=== PATIENT | male | born 1975 | race Caucasian/White ===

== ENCOUNTER 2017-11-09 16:01 | Emergency (ER) | payer SELFPAY ==
[2017-11-09 16:13] VITALS: BP 172/97
--- NOTE | 2017-11-09 16:34 | ER Document Report ---
ED Medical Screen (RME) - General Chief Complaint: Ankle Swelling Stated Complaint: SWOLLEN FEET/ANKLES Time Seen by Provider: 11/09/17 16:33 Notes: Several days of shortness of breath and bilateral leg swelling. TRAVEL OUTSIDE OF THE [place] IN LAST 30 DAYS: No - Related Data Allergies/Adverse Reactions: disulfiram [From Antabuse] Allergy (Verified 11/09/17 16:26) imipramine [Imipramine] Allergy (Verified 11/09/17 16:26) tramadol Allergy (Verified 11/09/17 16:26) Past Medical History - Social History Chew tobacco use (# tins/day): No Frequency of alcohol use: Occasional Drug Abuse: None - Past Medical History Cardiac Medical History: Reports: Hx Hypertension Denies: Hx Coronary Artery Disease, Hx Heart Attack Pulmonary Medical History: Reports: Hx Asthma Denies: Hx Bronchitis, Hx COPD, Hx Pneumonia Neurological Medical History: Reports: Hx Cerebrovascular Accident. Denies: Hx Seizures Renal/ Medical History: Denies: Hx Peritoneal Dialysis Musculoskeltal Medical History: Denies Hx Arthritis Psychiatric Medical History: Reports: Hx Depression Past Surgical History: Reports: Hx Abdominal Surgery - hernia x 3, Hx Orthopedic Surgery - left knee - Immunizations Hx Diphtheria, Pertussis, Tetanus Vaccination: No Physical Exam - Vital signs Vitals: Temp Pulse Resp BP Pulse Ox 98.4 F 113 H 18 172/97 H 90 L 11/09/17 16:12 11/09/17 16:12 11/09/17 16:12 11/09/17 16:12 11/09/17 16:12 Course - Vital Signs Vital signs: Temp Pulse Resp BP Pulse Ox 98.4 F 113 H 18 172/97 H 90 L 11/09/17 16:12 11/09/17 16:12 11/09/17 16:12 11/09/17 16:12 11/09/17 16:12
--- NOTE | 2017-11-09 16:59 | RADIOLOGY REPORT (SQ) ---
EXAM DESCRIPTION: CHEST PA/LAT COMPLETED DATE/TIME: 11/09/2017 4:49 pm REASON FOR STUDY: sob COMPARISON: 04/01/2016 EXAM PARAMETERS: NUMBER OF VIEWS: two views TECHNIQUE: Digital Frontal and Lateral radiographic views of the chest acquired. RADIATION DOSE: NA LIMITATIONS: none FINDINGS: LUNGS AND PLEURA: No opacities, masses or pneumothorax. No pleural effusion. MEDIASTINUM AND HILAR STRUCTURES: No masses or contour abnormalities. HEART AND VASCULAR STRUCTURES: Heart normal size. No evidence for failure. BONES: No acute findings. HARDWARE: None in the chest. OTHER: No other significant finding. IMPRESSION: NO SIGNIFICANT RADIOGRAPHIC FINDING IN THE CHEST. TECHNICAL DOCUMENTATION: JOB ID: [id number] [employer].- All Rights Reserved
[2017-11-09 18:00] LABS: ABSOLUTE BASOPHILS # (AUTO) 0.1 10^3/uL (0.0-0.2); ABSOLUTE EOSINOPHILS # (AUTO) 0.1 10^3/uL (0.0-0.6); ABSOLUTE LYMPHOCYTES (AUTO) 2.6 10^3/uL (0.5-4.7); ABSOLUTE MONOCYTES (AUTO) 1.1 10^3/uL (0.1-1.4); ABSOLUTE NEUT (AUTO) 6.9 10^3/uL (1.7-8.2); EOSINOPHILS % (AUTO) 1.1 % (0-6); LYMPHOCYTES % (AUTO) 24.3 % (13-45); MEAN CORPUSCULAR HEMOGLOBIN 32.4 pg (27.0-33.4); MEAN CORPUSCULAR HGB CONC 32.9 g/dL (32.0-36.0); MEAN CORPUSCULAR VOLUME 98 fl (80-97); MONOCYTES % (AUTO) 10.1 % (3-13); PLATELET COUNT 194 10^3/uL (150-450); RED BLOOD COUNT 5.87 10^6/uL (4.35-5.55); RED CELL DISTRIBUTION WIDTH 17.1 % (11.5-14.0); SEGMENTED NEUTROPHILS % (AUTO) 63.5 % (42-78); TOTAL CELLS COUNTED % (AUTO) 100 %; WHITE BLOOD COUNT 10.9 10^3/uL (4.0-10.5)
[2017-11-09 18:02] LABS: HEMATOCRIT 57.7 % (37.9-51.0)
[2017-11-09 18:28] LABS: ALANINE AMINOTRANSFERASE 39 U/L (21-72); ALBUMIN 3.6 g/dL (3.5-5.0); ALKALINE PHOSPHATASE 70 U/L (38-126); ANION GAP 5 (5-19); ASPARTATE AMINO TRANSFERASE 48 U/L (17-59); BILIRUBIN,DIRECT 0.2 mg/dL (0.0-0.4); BILIRUBIN,TOTAL 0.7 mg/dL (0.2-1.3); BLOOD UREA NITROGEN 19 mg/dL (7-20); CALCIUM 9.1 mg/dL (8.4-10.2); CARBON DIOXIDE 39 mmol/L (22-30); CHLORIDE 96 mmol/L (98-107); GLUCOSE 80 mg/dL (75-110); POTASSIUM 4.4 mmol/L (3.6-5.0); SODIUM 139.5 mmol/L (137-145); TOTAL PROTEIN 5.4 g/dL (6.3-8.2)
[2017-11-09] MEDS ORDERED: METHYLPREDNISOLONE INJ 125 MG/2 ML SDV IV ONE (18:47)
[2017-11-09] MEDS ORDERED: IPRATROPIUM/ALBUTEROL 0.5-2.5 MG/3 ML AMPUL NEB ONE (18:47)
--- NOTE | 2017-11-09 18:51 | ER Document Report ---
ED General - General Chief Complaint: Ankle Swelling Stated Complaint: SWOLLEN FEET/ANKLES Time Seen by Provider: 11/09/17 16:33 Notes: Patient is a 42-year-old male with a past medical history of chronic tobacco use , reported asthma, but no other known medical problems who presents with bilateral lower extremity swelling, chronic fatigue and shortness of breath. Patient states that the symptoms started 1 month ago but the swelling initially resolved but has again recurred which prompted him to come to the emergency department for further assessment. He notes exertion worsens his symptoms. Nothing improves his symptoms. He denies prior history of the same. No chest pain, pleuritic pain, hemoptysis, unilateral leg swelling, vomiting or diarrhea. He has not seen his primary doctor regarding these concerns. TRAVEL OUTSIDE OF THE [place] IN LAST 30 DAYS: No - Related Data Allergies/Adverse Reactions: disulfiram [From Antabuse] Allergy (Verified 11/09/17 16:26) imipramine [Imipramine] Allergy (Verified 11/09/17 16:26) tramadol Allergy (Verified 11/09/17 16:26) Past Medical History - General Information source: Patient - Social History Smoking Status: Current Every Day Smoker Chew tobacco use (# tins/day): No Frequency of alcohol use: Occasional Drug Abuse: None Lives with: Spouse/Significant other Family History: Reviewed & Not Pertinent Patient has suicidal ideation: No Patient has homicidal ideation: No - Past Medical History Cardiac Medical History: Reports: Hx Hypertension Denies: Hx Coronary Artery Disease, Hx Heart Attack Pulmonary Medical History: Reports: Hx Asthma Denies: Hx Bronchitis, Hx COPD, Hx Pneumonia Neurological Medical History: Reports: Hx Cerebrovascular Accident. Denies: Hx Seizures Renal/ Medical History: Denies: Hx Peritoneal Dialysis Musculoskeltal Medical History: Denies Hx Arthritis Psychiatric Medical History: Reports: Hx Depression Past Surgical History: Reports: Hx Abdominal Surgery - hernia x 3, Hx Orthopedic Surgery - left knee - Immunizations Hx Diphtheria, Pertussis, Tetanus Vaccination: No Review of Systems - Review of Systems Notes: Constitutional: Negative for fever. HENT: Negative for sore throat. Eyes: Negative for visual changes. Cardiovascular: Negative for chest pain. Respiratory: Positive for shortness of breath. Gastrointestinal: Negative for abdominal pain, vomiting or diarrhea. Genitourinary: Negative for dysuria. Musculoskeletal: Positive for bilateral lower extremity swelling Skin: Negative for rash. Neurological: Negative for headaches, weakness or numbness. 10 point ROS negative except as marked above and in HPI. Physical Exam - Vital signs Vitals: Temp Pulse Resp BP Pulse Ox 98.4 F 113 H 18 172/97 H 90 L 11/09/17 16:12 11/09/17 16:12 11/09/17 16:12 11/09/17 16:12 11/09/17 16:12 Notes: PHYSICAL EXAMINATION: GENERAL: Appears chronically ill, no acute distress HEAD: Atraumatic, normocephalic. EYES: Pupils equal round and reactive to light, extraocular movements intact, sclera anicteric, conjunctiva are normal. ENT: nares patent, oropharynx clear without exudates. Moist mucous membranes. NECK: Normal range of motion, supple without lymphadenopathy LUNGS: Coarse breath sounds in all lung lr, diminished throughout. Wheezing and expiratory phase in all lung lr HEART: Regular tachycardia without murmurs ABDOMEN: Soft, nontender, normoactive bowel sounds. No guarding, no rebound. No masses appreciated. EXTREMITIES: Normal range of motion, 1+ pitting edema that is equal and symmetric in the bilateral lower extremities NEUROLOGICAL: No focal neurological deficits. Moves all extremities spontaneously and on command. PSYCH: Moderately anxious SKIN: Warm, cyanotic Course - Re-evaluation Re-evalutation: 11/09/17 18:47 Patient presents with signs and symptoms worrisome for chronic hypoxia in the setting of COPD and long-term tobacco use. His laboratories demonstrate polycythemia and his pulse ox in triage was 90%. Patient states "no matter how many doctors I go to the can never get a number above 90%, I do not think those things work". Patient is complaining of bilateral lower extremity swelling and does have 1+ pitting edema that is equal and symmetric in the bilateral lower extremities. Chest x-ray is evidence of cardiomegaly or pulmonary edema. Hyperinflated consistent with COPD. Lung examination does show coarse wheezing in all lung lr. Primary concerns of this patient has had chronic hypoxia in the setting of tobacco induced obstructive lung disease and may have developed some degree of congestive failure in the setting of chronic hypoxia. Will obtain arterial blood gas to confirm my suspicion for hypoxia, place patient on telemetry, obtain BNP, provide breathing treatments and monitor for response, and reassess the patient. Clinical history is not suspicious for ACS , aortic dissection or acute pulmonary embolus. However given that he is hypoxic, tachypneic and tachycardic and does have some signs of diastolic failure will obtain a d-dimer to further assess. 11/09/17 19:25 Patient's labs and ABG confirmed my initial suspicion that he has chronic hypoxemia secondary to COPD. Patient was noted to be 74% when placed on panel monitor on room air. The ABG obtained off of oxygenation showed a PaO2 of 35. I explained this to the patient, informed him that this is why he is beginning to have swelling developing cardiac failure the setting of chronic hypoxemia. Explained to him that he would need to be hospitalized, kept on continuous supplemental oxygen, have a pulmonary consult, have further evaluation of why he is still hypoxic which I again suspect is secondary to underlying obstructive lung disease. The patient came very emotional, quite agitated and stated that he was going to leave. He stated he could not simply not go to work tomorrow, that he needed to make money, and that he could not stay in the hospital. I attempted in many different ways with his and child at the bedside to explain the severity of his illness, and that he would inevitably as a result of this underlying condition if he did not allow us to assist him. I explained to him the direct relation between his hypoxia and how he has been feeling, his development of lower extremity edema, and probable development of CHF secondary to chronic hypoxia. I explained to him that the treatment plan. The patient states the reason he cannot stay is that he has to go to work and make money. He is not intoxicated. He denies any acute suicidal ideation. This conversation was witnessed by his who completed with the patient to please stay and receive treatment. The patient however ignored her device as well as mine, left the facility went outside to smoke a cigarette. This patient will leave AGAINST MEDICAL ADVICE. I have emphasized with the patient at length that I expect that he will as a result of leaving the hospital today if he does not seek care either here order an alternative facility of his choosing. 11/09/17 20:28 I again made an extensive effort with the nurse Maria Elena at the bedside witnessing the entire conversation to try to convince the patient about the grave nature of his presentation. He has elected to leave the facility despite this conversation and has signed AMA forms. - Vital Signs Vital signs: Temp Pulse Resp BP Pulse Ox 98.4 F 113 H 18 172/97 H 90 L 11/09/17 16:12 11/09/17 16:12 11/09/17 16:12 11/09/17 16:12 11/09/17 16:12 - Laboratory Result Diagrams: 11/09/17 17:35 11/09/17 17:35 Laboratory results interpreted by me: 11/09/17 11/09/17 11/09/17 17:35 17:35 17:35 WBC 10.9 H RBC 5.87 H Hgb 19.0 H Hct 57.7 H MCV 98 H RDW 17.1 H D-Dimer Carbonic Acid ABG pH ABG pCO2 ABG pO2 ABG HCO3 ABG Total CO2 ABG O2 Saturation Chloride 96 L Carbon Dioxide 39 H NT-Pro-B Natriuret Pep 1040 H Total Protein 5.4 L 11/09/17 11/09/17 17:35 19:00 WBC RBC Hgb Hct MCV RDW D-Dimer 0.56 H Carbonic Acid 2.43 H ABG pH 7.31 L ABG pCO2 80.8 H* ABG pO2 35.6 L* ABG HCO3 39.7 H ABG Total CO2 42.2 H ABG O2 Saturation 60.2 L Chloride Carbon Dioxide NT-Pro-B Natriuret Pep Total Protein - Diagnostic Test Radiology reviewed: Image reviewed, Reports reviewed Radiology results interpreted by me: 11/09/17 18:50 Chest x-ray: Hyperinflated but no acute infiltrate or pneumothorax - EKG Interpretation by Me Additional EKG results interpreted by me: 11/09/17 18:50 Sinus tachycardia. Rate 102. No ST elevations or depressions. LVH. T-wave inversion in leads II and III. Critical Care Note - Critical Care Note Total time excluding time spent on procedures (mins): 45 Comments: Critical care time spent on multiple reassessments of the patient, reviewing imaging, labs, making multiple attempts to redirect the patient, trying to convince the patient to remain in the hospital and received treatment, spent greater than 20 minutes at the bedside reviewing his condition, the severity of his condition, the indications for his hospitalization. Discharge - Discharge Clinical Impression: Chronic respiratory failure with hypoxia and hypercapnia, Need for supplemental oxygenation, Polycythemia secondary to hypoxia Congestive heart failure Qualifiers: Congestive heart failure type: unspecified Congestive heart failure chronicity : unspecified Qualified Code(s): I50.9 - Heart failure, unspecified Condition: Critical Disposition: AGAINST MEDICAL ADVICE Additional Instructions: I fully expect that you will go home and as a result of leaving the hospital today. The exact timeframe in which this will happen is uncertain but if you do not receive treatment for your chronic low oxygen level you will continue to develop worsening heart failure and eventually as a result of this. Please return to the emergency department at any time if you would like to have treatment. We will always welcome you back and will be happy to take care of you any time. If you would like to go to another hospital for treatment this is also completely acceptable. However, you must receive treatment for your underlying condition.
[2017-11-09 18:56] LABS: TROPONIN I 0.038 ng/mL
[2017-11-09 19:14] LABS: ARTERIAL BLOOD BASE EXCESS 8.5 mmol/L; ARTERIAL BLOOD H2CO3 2.43 mmol/L (1.05-1.35); ARTERIAL BLOOD HCO3 39.7 mmol/L (20-26); ARTERIAL BLOOD O2 SATURATION 60.2 % (94-98); ARTERIAL BLOOD PH 7.31 (7.35-7.45); ARTERIAL BLOOD TOTAL CO2 42.2 mmol/L (23-27)
[2017-11-09 19:15] LABS: ARTERIAL BLOOD FIO2 ROOM AIR
[2017-11-09 19:17] LABS: ARTERIAL BLOOD PCO2 80.8 mmHg (35-45); ARTERIAL BLOOD PO2 35.6 mmHg (80-100)
--- NOTE | 2017-11-09 23:36 | EKG REPORT ---
SEVERITY:- ABNORMAL ECG - SINUS TACHYCARDIA RIGHT ATRIAL ABNORMALITY BORDERLINE RIGHT AXIS DEVIATION CONSIDER LEFT VENTRICULAR HYPERTROPHY LATERAL INFARCT, OLD ANTERIOR Q WAVES, POSSIBLY DUE TO LVH NONSPECIFIC T ABNORMALITIES, INFERIOR LEADS : Confirmed by: Nader Park 09-Nov-2017 23:35:09
== END 2017-11-09 20:24 | disposition left against medical advice (07) ==
LOC: ER 16:01
DX: J96.11 Chronic respiratory failure with hypoxia (principal); J96.12 Chronic respiratory failure with hypercapnia; D75.1 Secondary polycythemia; F17.200 Nicotine dependence, unspecified, uncomplicated; I50.9 Heart failure, unspecified; I10 Essential (primary) hypertension; Z99.81 Dependence on supplemental oxygen; Z86.73 Personal history of transient ischemic attack (TIA), and cerebral infarction without residual deficits
CPT/HCPCS: 36415; 71046; 80053; 82803; 83880; 84484; 85025; 85379; 93005; 93010; 99291

== ENCOUNTER 2017-11-09 22:16 | Inpatient (IN) | payer MEDICAID ==
[2017-11-09] MEDS ORDERED: DIAZEPAM 5 MG TABLET PO ONE (23:07)
[2017-11-09] MEDS ORDERED: NICOTINE 21 MG/24 HR PATCH.TD24 TD ONE (23:07)
[2017-11-09] MEDS ORDERED: IPRATROPIUM/ALBUTEROL 0.5-2.5 MG/3 ML AMPUL NEB ONE (23:48)
[2017-11-09] MEDS ORDERED: METHYLPREDNISOLONE INJ 125 MG/2 ML SDV IV ONE (23:49)
--- NOTE | 2017-11-09 23:52 | ER Document Report ---
ED General - General Chief Complaint: Shortness Of Breath Stated Complaint: CHEST PAIN Time Seen by Provider: 11/09/17 23:02 Notes: Patient is a 42-year-old male who I saw several hours ago who returns for repeat assessment. In summary, this is a patient with long-standing tobacco abuse who presents with concerns of bilateral lower extremity edema for the past 1 month that is worsened in the last several days. He also notes chronic fatigue and shortness of breath. He was found on his previous visit to be severely hypoxemic on arterial blood gas as well as saturating 71% on room air without any obvious respiratory distress. His labs also demonstrated findings consistent with polycythemia in the setting of chronic hypoxia. Patient returns stating that he has changed his mind given the severity of my discharge instructions as well as my request that he return. He nothing is new or different since he was discharged. Patient does admit to smoking cigarettes since being discharged. Does note ongoing moderate shortness of breath, worsened by exertion, not improved by nebulizer therapies. TRAVEL OUTSIDE OF THE [place] IN LAST 30 DAYS: No - Related Data Allergies/Adverse Reactions: disulfiram [From Antabuse] Allergy (Verified 11/09/17 16:26) imipramine [Imipramine] Allergy (Verified 11/09/17 16:26) tramadol Allergy (Verified 11/09/17 16:26) Past Medical History - General Information source: Patient - Social History Smoking Status: Current Every Day Smoker Frequency of alcohol use: Occasional Drug Abuse: None Lives with: Spouse/Significant other Family History: Reviewed & Not Pertinent - Past Medical History Cardiac Medical History: Reports: Hx Hypertension Denies: Hx Coronary Artery Disease, Hx Heart Attack Pulmonary Medical History: Reports: Hx Asthma Denies: Hx Bronchitis, Hx COPD, Hx Pneumonia Neurological Medical History: Reports: Hx Cerebrovascular Accident. Denies: Hx Seizures Renal/ Medical History: Denies: Hx Peritoneal Dialysis Musculoskeltal Medical History: Denies Hx Arthritis Psychiatric Medical History: Reports: Hx Depression Past Surgical History: Reports: Hx Abdominal Surgery - hernia x 3, Hx Orthopedic Surgery - left knee - Immunizations Hx Diphtheria, Pertussis, Tetanus Vaccination: No Review of Systems - Review of Systems Notes: Constitutional: Negative for fever. HENT: Negative for sore throat. Eyes: Negative for visual changes. Cardiovascular: Negative for chest pain. Respiratory: Positive for shortness of breath. Gastrointestinal: Negative for abdominal pain, vomiting or diarrhea. Genitourinary: Negative for dysuria. Musculoskeletal: Negative for back pain. Skin: Negative for rash. Neurological: Negative for headaches, weakness or numbness. 10 point ROS negative except as marked above and in HPI. Physical Exam - Vital signs Vitals: Resp BP Pulse Ox 28 H 132/87 H 71 L 11/09/17 23:05 11/09/17 23:05 11/09/17 23:05 Interpretation: Tachycardic, Hypoxic, Tachypneic Notes: PHYSICAL EXAMINATION: GENERAL: Appears older than stated age, in no acute distress HEAD: Atraumatic, normocephalic. EYES: Pupils equal round and reactive to light, extraocular movements intact, sclera anicteric, conjunctiva are normal. ENT: nares patent, oropharynx clear without exudates. Moderately dry mucous membranes. NECK: Normal range of motion, supple without lymphadenopathy LUNGS: Wheezing throughout in all lung lr, mildly diminished throughout. No acute respiratory distress HEART: Regular rate and rhythm without murmurs ABDOMEN: Soft, nontender, normoactive bowel sounds. No guarding, no rebound. No masses appreciated. EXTREMITIES: Clubbing of the hands bilaterally with associated cyanosis. 1+ pitting edema in the bilateral lower extremities that is equal and symmetric NEUROLOGICAL: No focal neurological deficits. Moves all extremities spontaneously and on command. PSYCH: Normal mood, normal affect. SKIN: Warm, cyanotic Course - Re-evaluation Re-evalutation: 11/09/17 23:51 Thankfully, the patient has returned to the emergency department. Please review my documentation from the visit earlier today. Patient arrives again very hypoxic, 74% on room air. He is requiring 9 L [address] mask to maintain saturations above 92%. He continues to wheeze although again this appears to be a very chronic picture. Will begin treating with nebulizers, steroids, obtain a CT of the chest given the prior elevated d-dimer to ensure that there is not an underlying pulmonary embolus and plan for disposition 11/10/17 00:35 CT of the chest with findings consistent with possible pulmonary hypertension although no evidence of acute pulmonary embolus. Given patient's high oxygen requirement, will consider placing patient on BiPAP although his work of breathing is not markedly elevated and this is clearly a chronic picture. At this point I do not believe the patient should remain at this hospital as he may require advanced therapies for pulmonary hypertension and clearly needs a pulmonology consult which we do not have available. His high level of oxygen requirement and the chronic nature of this picture goes against this being an acute COPD exacerbation I do not believe the hospitalist service would be appropriate for him at this hospital. I have contacted [facility] and they are currently on divert, [facility] has a 48 hour wait list, and [facility] as apparently they may have beds. 11/10/17 0120 Patient has been accepted [facility] at [facility] by . I have explained to the patient the need for transfer due to concern for pulmonary hypertension and he is agreeable at this time. He remains resistant to the idea of being severely ill and I have again spent approximately 20-30 minutes at the bedside trying to explain to the patient the severity of his condition and the need for hospitalization 11/10/17 03:36 Patient continues to ambulate around the emergency department. When he did this without oxygen he desaturated to 69% after a single loop in the emergency department. He has agreed that any further times of walking he will use a oxygen tank. Awaiting transport. - Vital Signs Vital signs: Temp Pulse Resp BP Pulse Ox 19 157/105 H 92 11/10/17 03:25 11/10/17 03:03 11/10/17 03:25 - Diagnostic Test Radiology reviewed: Image reviewed, Reports reviewed Radiology results interpreted by me: 11/10/17 03:37 CTA chest: Mild emphysematous changes, no pulmonary embolus Discharge - Discharge Clinical Impression: Polycythemia secondary to hypoxia, Chronic respiratory failure with hypoxia and hypercapnia Congestive heart failure Qualifiers: Congestive heart failure type: unspecified Congestive heart failure chronicity : unspecified Qualified Code(s): I50.9 - Heart failure, unspecified Condition: Serious Disposition: [facility]
--- NOTE | 2017-11-10 00:17 | RADIOLOGY REPORT (SQ) ---
EXAM DESCRIPTION: CTA of the chest per PE protocol with contrast. CLINICAL HISTORY: sob, hypoxemia, elevated d-dimer COMPARISON: None Available. TECHNIQUE: CTA of the chest obtained following the uncomplicated intravenous administration of 100 mL Isovue-370. 3-D/MIP reformatted images of the chest available for evaluation. FINDINGS: Chest: Mediastinal windows demonstrate an excellent contrast bolus. No pulmonary embolus identified. Large in the main pulmonary artery. Visualized thyroid gland is unremarkable. Great vessels have normal anatomic configuration. Small pericardial effusion. No abnormalities of the esophagus. Scattered mediastinal lymph nodes are not enlarged by CT criteria. Lung windows demonstrate no consolidation, pneumothorax, or pleural effusion. No abnormalities of the visualized trachea or airways. Limited images of the upper abdomen demonstrate no abnormalities of the visualized liver, spleen, left adrenal gland, or left kidney. No destructive osseous lesions. DLP: 542.91 mGycm IMPRESSION: 1. No pulmonary embolus identified. 2. Enlargement of the main pulmonary artery can be seen with pulmonary arterial hypertension. 3. Small pericardial effusion. This exam was performed according to our departmental dose-optimization program, which includes automated exposure control, adjustment of the mA and/or kV according to patient size and/or use of iterative reconstruction technique.
--- NOTE | 2017-11-10 09:33 | ER Document Report ---
Doctor's Note Notes: 11/10/17 09:32 42-year-old male history of respiratory distress awaiting transport to [place] he is resting comfortably playing on his phone at this time
[2017-11-10 11:12] LABS: ARTERIAL BLOOD BASE EXCESS 3.5 mmol/L; ARTERIAL BLOOD H2CO3 3.03 mmol/L (1.05-1.35); ARTERIAL BLOOD HCO3 37.3 mmol/L (20-26); ARTERIAL BLOOD O2 SATURATION 97.7 % (94-98); ARTERIAL BLOOD PO2 132.5 mmHg (80-100); ARTERIAL BLOOD TOTAL CO2 40.4 mmol/L (23-27)
[2017-11-10 11:15] LABS: ARTERIAL BLOOD PCO2 100.8 mmHg (35-45); ARTERIAL BLOOD PH 7.19 (7.35-7.45)
[2017-11-10 11:26] LABS: ARTERIAL BLOOD FIO2 100%
[2017-11-10 16:19] LABS: ARTERIAL BLOOD H2CO3 3.72 mmol/L (1.05-1.35); ARTERIAL BLOOD HCO3 46.2 mmol/L (20-26); ARTERIAL BLOOD O2 SATURATION 99.4 % (94-98); ARTERIAL BLOOD PO2 262.6 mmHg (80-100)
[2017-11-10 16:22] LABS: ARTERIAL BLOOD FIO2 90%; ARTERIAL BLOOD PCO2 123.5 mmHg (35-45); ARTERIAL BLOOD PH 7.19 (7.35-7.45)
[2017-11-10] MEDS ORDERED: SUCCINYLCHOLINE CHLORIDE INJ 200 MG/10 ML VIAL IV ONE (16:30)
[2017-11-10] MEDS ORDERED: ETOMIDATE INJ/PF 20 MG/10 ML SDV IV ONE ×2 (16:30→16:32)
[2017-11-10] MEDS ORDERED: PROPOFOL 100 ML IV ONE (16:33)
[2017-11-10] MEDS ORDERED: MIDAZOLAM HCL 50 MG/100 ML RTUINJ IV ONE (17:27)
[2017-11-10] MEDS ORDERED: FENTANYL CITRATE INJ/PF 100 MCG/2 ML AMPUL ONE (17:27)
[2017-11-10] MEDS: PROPOFOL 100 ML IV PRN ×2 (17:49→20:42)
[2017-11-10] MEDS ORDERED: AMPICILLIN SOD/SULBACTAM 3 GM VIAL IV ONE (17:59)
--- NOTE | 2017-11-10 18:00 | RADIOLOGY REPORT (SQ) ---
EXAM DESCRIPTION: CHEST SINGLE VIEW COMPLETED DATE/TIME: 11/10/2017 5:50 pm REASON FOR STUDY: POST INTUBATION COMPARISON: 11/09/2017. EXAM PARAMETERS: NUMBER OF VIEWS: One view. TECHNIQUE: Single frontal radiographic view of the chest acquired. RADIATION DOSE: NA LIMITATIONS: None. FINDINGS: LUNGS AND PLEURA: Linear density in the left mid lung. Streaky density in the left lower lobe posterior to the cardiac silhouette. No large pleural effusion. No pneumothorax. MEDIASTINUM AND HILAR STRUCTURES: No masses. Contour normal. HEART AND VASCULAR STRUCTURES: Heart normal in size. Normal vasculature. BONES: No acute findings. HARDWARE: None in the chest. OTHER: Tip of the endotracheal tube located 3.5 cm proximal to the yaakov. Tip of the nasogastric tu be in the stomach. IMPRESSION: 1. LIFE LINES DESCRIBED IN SATISFACTORY POSITION. 2. LINEAR ATELECTASIS IN THE LEFT MID LUNG. POSSIBLE DEVELOPING INFILTRATE IN THE LEFT LUNG BASE. TECHNICAL DOCUMENTATION: JOB ID: [id number] [employer]- All Rights Reserved
[2017-11-10] MEDS ORDERED: ROCURONIUM BROMIDE INJ 50 MG/5 ML VIAL IV ONE ×2 (18:23→20:53)
[2017-11-10] MEDS ORDERED: FENTANYL CITRATE INJ/PF 100 MCG/2 ML AMPUL IV ONE (18:24)
[2017-11-10 20:52] LABS: A TYPE INFLUENZA AG NEGATIVE (NEGATIVE); B INFLUENZA AG NEGATIVE (NEGATIVE)
[2017-11-10] MEDS ORDERED: SUCCINYLCHOLINE CHLORIDE INJ 200 MG/10 ML VIAL ONE (20:53)
[2017-11-10] MEDS ORDERED: MIDAZOLAM HCL 50 MG/100 ML RTUINJ IV PRN (23:34)
[2017-11-11 02:29] LABS: ARTERIAL BLOOD BASE EXCESS 13.9 mmol/L; ARTERIAL BLOOD H2CO3 2.09 mmol/L (1.05-1.35); ARTERIAL BLOOD HCO3 43.2 mmol/L (20-26); ARTERIAL BLOOD O2 SATURATION 88.2 % (94-98); ARTERIAL BLOOD PH 7.41 (7.35-7.45); ARTERIAL BLOOD PO2 55.8 mmHg (80-100); ARTERIAL BLOOD TOTAL CO2 45.3 mmol/L (23-27)
[2017-11-11 02:33] LABS: ARTERIAL BLOOD FIO2 40%; ARTERIAL BLOOD PCO2 69.4 mmHg (35-45)
[2017-11-11] MEDS ORDERED: PIPERACILLIN/TAZOBACTAM 3.375 GM VIAL IV ONE ×2 (02:42→09:00)
[2017-11-11] MEDS ORDERED: METHYLPREDNISOLONE INJ 125 MG/2 ML SDV IV ONE (02:55)
--- NOTE | 2017-11-11 02:59 | ER Document Report ---
Doctor's Note Notes: 11/11/17 02:56 Note: This is a 42-year-old man that was intubated for respiratory failure earlier by Dr. Thapa getting them. The patient is currently waiting transfer to [facility] ICU. Repeat ABG shows improvement of the pH and PaCO2. Of note, the patient's PaO2 was below 60 (the patient had been gradually weaned down from 100% to 40%). I have instituted the following vent changes: Were increasing his O2 to 60% FiO2. We will keep his tidal volume at 500 and PEEP of 5. Respiratory therapy will proceed with suctioning. Patient will get nebulizers every 6 hours as needed via respiratory therapy. The patient has been continued on IV antibiotics for suspicion of a developing pneumonia. The plan is for Zosyn every 6 hours. The patient is been started on IV Solu-Medrol.
[2017-11-11] MEDS: PROPOFOL 100 ML IV PRN ×6 (03:12→20:09)
[2017-11-11] MEDS: MORPHINE SULFATE 10 MG/ML INJ IV PRN ×3 (08:46→16:03)
[2017-11-11 09:15] LABS: HEMOGLOBIN 18.1 g/dL (13.5-17.0); MEAN CORPUSCULAR HEMOGLOBIN 31.6 pg (27.0-33.4); MEAN CORPUSCULAR HGB CONC 32.4 g/dL (32.0-36.0); MEAN CORPUSCULAR VOLUME 97 fl (80-97); PLATELET COUNT 160 10^3/uL (150-450); RED BLOOD COUNT 5.74 10^6/uL (4.35-5.55); RED CELL DISTRIBUTION WIDTH 16.3 % (11.5-14.0); WHITE BLOOD COUNT 12.4 10^3/uL (4.0-10.5)
[2017-11-11 09:20] LABS: HEMATOCRIT 55.9 % (37.9-51.0)
[2017-11-11 09:40] LABS: ABSOLUTE LYMPHOCYTES# (MANUAL) 0.2 10^3/uL (0.5-4.7); ABSOLUTE MONOCYTES # (MANUAL) 0.1 10^3/uL (0.1-1.4); BASOPHILS % (MANUAL) 0 % (0-2); EOSINOPHILS % (MANUAL) 0 % (0-6); LYMPHOCYTES % (MANUAL) 2 % (13-45); MONOCYTES % (MANUAL) 1 % (3-13); SEGMENTED NEUTROPHILS % (MAN) 97 % (42-78); TOTAL CELLS COUNTED 100
[2017-11-11 09:41] LABS: ANISOCYTOSIS 1+; POLYCHROMASIA SLIGHT
[2017-11-11 09:42] LABS: PLATELET COMMENT ADEQUATE
--- NOTE | 2017-11-11 11:03 | ER Document Report ---
Doctor's Note Notes: 11/11/17 11:02 As the rounding physician for our transfer patients, I have reviewed the chart, vitals, lab work. Patient has been examined and noted to be stable . I am transfer. 11/11/17 17:00 Family now requesting that patient stay at this hospital versus transfer to do. Apparently there was a social issue where they wanted to do but now stated they would like him here. Discussed case with Dr. Harper who will accept patient. I did request vent management while he is in the emergency department.
--- NOTE | 2017-11-11 11:27 | RADIOLOGY REPORT (SQ) ---
EXAM DESCRIPTION: CHEST SINGLE VIEW COMPLETED DATE/TIME: 11/11/2017 11:08 am REASON FOR STUDY: respiratory failure, intubated COMPARISON: Chest film 11/10/2017, 11/09/2017 CT angio chest 11/09/2017 EXAM PARAMETERS: NUMBER OF VIEWS: One view. TECHNIQUE: Single frontal radiographic view of the chest acquired. RADIATION DOSE: NA LIMITATIONS: None. FINDINGS: LUNGS AND PLEURA: Left retrocardiac consolidation is present, loss of discrete left hemidi aphragm with increased density from atelectasis or pneumonia. This is increased compared to previous studies. Right lung well inflated and clear. No gross pleural effusions or pneumothorax MEDIASTINUM AND HILAR STRUCTURES: No masses. Contour normal. HEART AND VASCULAR STRUCTURES: Heart normal in size. Prominent main pulmonary artery, question pulmo nary hypertension. BONES: No acute findings. HARDWARE: Endotracheal tube tip 6 cm above the yaakov. Nasogastric tube tip and side port in the sto mach. OTHER: No other significant finding. IMPRESSION: Endotracheal and nasogastric tubes in good positioning. Left retrocardiac consolidation atelectasis versus pneumonia, increased compared to previous studies TECHNICAL DOCUMENTATION: JOB ID: [id number] [email or web address] All Rights Reserved
[2017-11-11 11:44] LABS: ALBUMIN 2.9 g/dL (3.5-5.0); BLOOD UREA NITROGEN 14 mg/dL (7-20); CHLORIDE 98 mmol/L (98-107); GLUCOSE 134 mg/dL (75-110); PHOSPHORUS 3.1 mg/dL (2.5-4.5); POTASSIUM 4.8 mmol/L (3.6-5.0); TOTAL PROTEIN 4.8 g/dL (6.3-8.2)
[2017-11-11 11:46] LABS: ALANINE AMINOTRANSFERASE 34 U/L (21-72); ALKALINE PHOSPHATASE 60 U/L (38-126); ASPARTATE AMINO TRANSFERASE 37 U/L (17-59); BILIRUBIN,DIRECT 0.3 mg/dL (0.0-0.4); BILIRUBIN,TOTAL 0.6 mg/dL (0.2-1.3); CALCIUM 8.7 mg/dL (8.4-10.2)
[2017-11-11 11:57] LABS: CARBON DIOXIDE 38 mmol/L (22-30); SODIUM 137.6 mmol/L (137-145)
[2017-11-11 12:02] LABS: ANION GAP 2 (5-19)
[2017-11-11] MEDS ORDERED: PIPERACILLIN SODIUM/TAZOBACTAM 3.375 GM in NORMAL SALINE 100 ML IV ONE (13:30)
[2017-11-11] MEDS: IPRATROPIUM/ALBUTEROL 0.5-2.5 MG/3 ML AMPUL NEB PRN ×2 (13:31→16:14)
[2017-11-11] MEDS ORDERED: MORPHINE SULFATE 10 MG/ML INJ IV PRN (17:00)
[2017-11-11] MEDS ORDERED: DEXTROSE 40% GEL 15 GM TUBE X 2 PO PRN (17:11)
[2017-11-11] MEDS ORDERED: DEXTROSE 50%-WATER SYRINGE 25 GM/50 ML DOSE IV PRN (17:11)
[2017-11-11] MEDS ORDERED: GLUCAGON,HUMAN RECOMB 1 MG INJ IM PRN (17:11)
[2017-11-11] MEDS ORDERED: DEXTROSE 50%-WATER SYRINGE 12.5 GM/25 ML DOSE IV PRN (17:11)
[2017-11-11] MEDS ORDERED: DEXTROSE 40% GEL 15 GM TUBE PO PRN ×3 (17:11→18:23)
[2017-11-11] MEDS ORDERED: NORMAL SALINE 1000 ML 1,000 ML IV PRN (17:34)
[2017-11-11] MEDS ORDERED: DEXTROSE 50%-WATER 25 GM/50 ML DISP.SYRIN IV PRN ×2 (17:34)
[2017-11-11] MEDS ORDERED: ACETAMINOPHEN 650 MG SUPP.RECT PR PRN (17:34)
[2017-11-11] MEDS ORDERED: GLUCAGON,HUMAN RECOMB 1 MG INJ SUBCUT PRN (17:34)
[2017-11-11 18:35] VITALS: BP 112/72
[2017-11-11] MEDS ORDERED: ENOXAPARIN SODIUM INJ 40 MG/0.4 ML DISP.SYRIN SUBCUT ONE (19:00)
[2017-11-11] MEDS: IPRATROPIUM/ALBUTEROL 0.5-2.5 MG/3 ML AMPUL NEB SCH (21:01)
[2017-11-11] MEDS ORDERED: PANTOPRAZOLE SODIUM 40 MG VIAL IV SCH (22:00)
[2017-11-12] MEDS: IPRATROPIUM/ALBUTEROL 0.5-2.5 MG/3 ML AMPUL NEB SCH (01:19)
[2017-11-12] MEDS ORDERED: ENOXAPARIN SODIUM INJ 40 MG/0.4 ML DISP.SYRIN SUBCUT SCH (10:00)
--- NOTE | 2017-12-31 14:40 | Progress Note ---
Provider Note Provider Note: Unfortunately, this patient was transferred by the ED from the ED to [facility] before I could evaluate the patient. Therefore, I did not evaluate or examine the patient.
== END 2017-11-11 21:30 | disposition short-term general hospital (02) | DRG 208 ==
LOC: ER 22:16 → EH 11-11 17:12
PROVIDERS: ADMIT Pediatrics; ATTEND Pediatrics
PROC: 5A1935Z Respiratory Ventilation, Less than 24 Consecutive Hours (ICD-10-PCS; principal; 2017-11-10)
PROC: 0BH17EZ Insertion of Endotracheal Airway into Trachea, Via Natural or Artificial Opening (ICD-10-PCS; 2017-11-10)
PROC: 5A09357 Assistance with Respiratory Ventilation, Less than 24 Consecutive Hours, Continuous Positive Airway Pressure (ICD-10-PCS; 2017-11-10)
DX: J96.21 Acute and chronic respiratory failure with hypoxia (principal); J18.1 Lobar pneumonia, unspecified organism; J96.02 Acute respiratory failure with hypercapnia; D75.1 Secondary polycythemia; I50.9 Heart failure, unspecified; Z78.1 Physical restraint status
CPT/HCPCS: 36415; 36600; 51702; 71045; 71275; 80053; 82553; 82803; 82962; 83735; 84100; 85025; 87040; 87804; 94002; 94003; 94640; 94660; 96365; 96367; 96375; 96376; 99291; 99292; J0295; J0330; J2250; J2270; J2543; J2704; J2930; J3010; J3490; J7620

== ENCOUNTER 2017-11-18 14:25 | Inpatient (IN) | payer SELFPAY ==
[2017-11-18] MEDS ORDERED: HYDRALAZINE HCL INJ/PF 20 MG/1 ML SDV IV PRN (23:07)
[2017-11-18] MEDS ORDERED: ACETAMINOPHEN 325 MG TABLET PO PRN (23:07)
[2017-11-18] MEDS ORDERED: KETOROLAC TROMETHAMINE INJ/PF 30 MG/1 ML SDV IV PRN (23:07)
[2017-11-18] MEDS ORDERED: MAGNESIUM HYDROXIDE SUSP 30 ML UDCUP PO PRN (23:08)
[2017-11-18] MEDS ORDERED: IPRATROPIUM/ALBUTEROL 0.5-2.5 MG/3 ML AMPUL NEB PRN (23:08)
[2017-11-18] MEDS ORDERED: LACTULOSE SYRUP 20 GM/30 ML UDCUP PO ONE (23:30)
[2017-11-18] MEDS ORDERED: AMOXICILLIN TR/POT CLAVULANATE 500-125 MG TAB PO ONE (23:30)
[2017-11-18] MEDS ORDERED: IPRATROPIUM BROMIDE 0.02% NEB 0.5 MG/2.5 ML AMPUL NEB PRN (23:37)
[2017-11-18] MEDS ORDERED: POLYETHYLENE GLYCOL 3350 POWDER 17 GM/1 PACKET PO PRN (23:38)
[2017-11-18] MEDS ORDERED: ALBUTEROL SULFATE HFA (90 MCG/PUFF) 200 PUFF/8.5 GM MDI IH PRN (23:41)
[2017-11-18] MEDS ORDERED: METOPROLOL TARTRATE 25 MG TABLET PO ONE (23:45)
[2017-11-19] MEDS: IPRATROPIUM/ALBUTEROL 0.5-2.5 MG/3 ML AMPUL NEB SCH ×4 (00:31→23:53)
[2017-11-19] MEDS: OXYCODONE HCL IR 5 MG TABLET PO PRN ×3 (00:32→14:20)
[2017-11-19] MEDS: OXYCODONE-ACETAMINOPHEN 5-325 MG TABLET PO PRN ×3 (00:33→14:19)
--- NOTE | 2017-11-19 05:32 | PDOC H&P ---
History of Present Illness Admission Date/PCP: 11/18/17 14:25 Patient complains of: Shortness of breath History of Present Illness: ANTONIA HUNTER III is a 42 year old male with a past medical history of chronic pain, COPD, chronic bronchitis, tobacco dependence and polycythemia. Patient presents after presentation to [facility] November 10 with acute respiratory failure secondary to pneumonia, bilateral DVT and pulmonary emboli requiring intubation and tertiary care treatment he was transferred to [facility]. Review of discharge summary reveals he remained intubated for several days and self extubated insisting on DNR status. He is otherwise significantly improved though with residual pulmonary hypertension, resolving pneumonia and COPD exacerbation requiring oxygen and Xarelto. He is received 7 of 7 days of IV antibiotics for pneumonia. He currently complains of baseline shortness of breath, constipation and chronic back pain. Past Medical History Cardiac Medical History: Reports: DVT, Hypertension, Pulmonary Embolism Denies: Coronary Artery Disease, Myocardial Infarction Pulmonary Medical History: Reports: Asthma, Bronchitis, Chronic Obstructive Pulmonary Disease (COPD) Denies: Pneumonia Neurological Medical History: Denies: Seizures Musculoskeltal Medical History: Denies: Arthritis Psychiatric Medical History: Reports: Bipolar Disorder, Depression, Tobacco Dependency, Other - Chronic pain Hematology: Denies: Anemia Past Surgical History Past Surgical History: Reports: Orthopedic Surgery - left knee Social History Information Source: Patient, H Records, Outside Facility Records Lives with: Family Smoking Status: Current Every Day Smoker - Advance Directive Resuscitation Status: Do Not Intubate Family History Family History: COPD, Hypertension Parental Family History Reviewed: Yes Children Family History Reviewed: Yes Sibling(s) Family History Reviewed.: Yes Medication/Allergy Home Medications: Albuterol Sulfate [Proair HFA] 2 puff IH Q4 PRN 11/11/17 Montelukast Sodium [Singulair 10 mg Tablet] 10 mg PO QHS 11/11/17 Oxycodone HCl/Acetaminophen [Oxycodone-Acetaminophen 10-325] 1 tab PO TIDP PRN 11/11/17 Allergies/Adverse Reactions: disulfiram [From Antabuse] Allergy (Verified 11/09/17 16:26) imipramine [Imipramine] Allergy (Verified 11/09/17 16:26) tramadol Allergy (Verified 11/09/17 16:26) Review of Systems Constitutional: ABSENT: chills, fever(s), headache(s), weight gain, weight loss Eyes: ABSENT: visual disturbances Ears: ABSENT: hearing changes Cardiovascular: ABSENT: chest pain, dyspnea on exertion, edema, orthropnea, palpitations Respiratory: ABSENT: cough, hemoptysis Gastrointestinal: ABSENT: abdominal pain, constipation, diarrhea, hematemesis, hematochezia, nausea, vomiting Genitourinary: ABSENT: dysuria, hematuria Musculoskeletal: ABSENT: joint swelling Integumentary: ABSENT: rash, wounds Neurological: ABSENT: abnormal gait, abnormal speech, confusion, dizziness, focal weakness, syncope Psychiatric: ABSENT: anxiety, depression, homidical ideation, suicidal ideation Endocrine: ABSENT: cold intolerance, heat intolerance, polydipsia, polyuria Hematologic/Lymphatic: ABSENT: easy bleeding, easy bruising Physical Exam Vital Signs: Temp Pulse Resp BP Pulse Ox 99.2 F 87 18 127/84 H 88 L 11/19/17 03:51 11/19/17 03:51 11/19/17 03:51 11/19/17 03:51 11/19/17 03:51 Intake & Output 11/17/17 11/18/17 11/19/17 11:59 11:59 11:59 Intake Total 118 Balance 118 Weight 61.6 kg General appearance: PRESENT: no acute distress, thin, well-developed, well- nourished, other - Chronically ill-appearing Head exam: PRESENT: atraumatic, normocephalic Eye exam: PRESENT: conjunctiva pink, EOMI, PERRLA. ABSENT: scleral icterus Ear exam: PRESENT: normal external ear exam Mouth exam: PRESENT: moist, tongue midline Neck exam: ABSENT: carotid bruit, JVD, lymphadenopathy, thyromegaly Respiratory exam: PRESENT: clear to auscultation rodrigo, prolonged expiratory phas. ABSENT: rales, rhonchi, wheezes Cardiovascular exam: PRESENT: RRR. ABSENT: diastolic murmur, rubs, systolic murmur Pulses: PRESENT: normal dorsalis pedis pul Vascular exam: PRESENT: normal capillary refill GI/Abdominal exam: PRESENT: normal bowel sounds, soft. ABSENT: distended, guarding, mass, organolmegaly, rebound, tenderness Rectal exam: PRESENT: deferred Extremities exam: PRESENT: full ROM. ABSENT: calf tenderness, clubbing, pedal edema Neurological exam: PRESENT: alert, awake, oriented to person, oriented to place , oriented to time, oriented to situation, CN II-XII grossly intact. ABSENT: motor sensory deficit Psychiatric exam: PRESENT: appropriate affect, normal mood. ABSENT: homicidal ideation, suicidal ideation Skin exam: PRESENT: dry, intact, warm. ABSENT: cyanosis, rash Assessment & Plan - Diagnosis (1) Pulmonary emboli Is this a current diagnosis for this admission?: Yes Plan: Secondary to DVT, complicated by chronic pain, tobacco and polycythemia and oxygen requirement. Xarelto ordered discharge planning consulted (2) Chronic respiratory failure with hypoxia and hypercapnia Is this a current diagnosis for this admission?: Yes Plan: Supplemental oxygen given pulse oximetry of 87% on room air at rest. Incentive spirometry, PEEP, albuterol and Atrovent ordered (3) Pneumonia Qualifiers: Pneumonia type: due to unspecified organism Laterality: left Lung location: lower lobe of lung Qualified Code(s): J18.1 - Lobar pneumonia, unspecified organism Is this a current diagnosis for this admission?: Yes Plan: Day 7 of 7 IV antibiotics completed. Follow-up a.m. CBC and blood culture if febrile. (4) Polycythemia secondary to hypoxia Is this a current diagnosis for this admission?: Yes Plan: Secondary to COPD and tobacco dependence. Supplemental oxygen and Xarelto. Outpatient follow-up and consideration of phlebotomy. - Time Time Spent: 50 to 70 Minutes - Inpatient Certification Medical Necessity: Need Close Monitoring Due to Risk of Patient Decompensation
[2017-11-19] MEDS ORDERED: AMOXICILLIN TR/POT CLAVULANATE 500-125 MG TAB PO SCH (06:00)
[2017-11-19 06:14] LABS: ABSOLUTE BASOPHILS # (AUTO) 0.1 10^3/uL (0.0-0.2); ABSOLUTE EOSINOPHILS # (AUTO) 0.2 10^3/uL (0.0-0.6); ABSOLUTE LYMPHOCYTES (AUTO) 2.1 10^3/uL (0.5-4.7); ABSOLUTE MONOCYTES (AUTO) 1.6 10^3/uL (0.1-1.4); ABSOLUTE NEUT (AUTO) 9.5 10^3/uL (1.7-8.2); BASOPHILS % (AUTO) 0.4 % (0-2); EOSINOPHILS % (AUTO) 1.2 % (0-6); HEMATOCRIT 52.7 % (37.9-51.0); HEMOGLOBIN 17.1 g/dL (13.5-17.0); LYMPHOCYTES % (AUTO) 15.4 % (13-45); MEAN CORPUSCULAR HEMOGLOBIN 31.2 pg (27.0-33.4); MEAN CORPUSCULAR HGB CONC 32.6 g/dL (32.0-36.0); MEAN CORPUSCULAR VOLUME 96 fl (80-97); MONOCYTES % (AUTO) 12.2 % (3-13); PLATELET COUNT 355 10^3/uL (150-450); RED BLOOD COUNT 5.49 10^6/uL (4.35-5.55); SEGMENTED NEUTROPHILS % (AUTO) 70.8 % (42-78); TOTAL CELLS COUNTED % (AUTO) 100 %; WHITE BLOOD COUNT 13.5 10^3/uL (4.0-10.5)
[2017-11-19 06:33] LABS: ANION GAP 5 (5-19); BLOOD UREA NITROGEN 19 mg/dL (7-20); CALCIUM 9.5 mg/dL (8.4-10.2); CARBON DIOXIDE 37 mmol/L (22-30); CHLORIDE 98 mmol/L (98-107); GLUCOSE 130 mg/dL (75-110); POTASSIUM 4.3 mmol/L (3.6-5.0); SODIUM 140.3 mmol/L (137-145)
[2017-11-19] MEDS: RIVAROXABAN 15 MG TABLET PO SCH ×2 (08:45→16:05)
[2017-11-19] MEDS: METOPROLOL TARTRATE 25 MG TABLET PO SCH ×2 (10:49→21:39)
[2017-11-19] MEDS: LISINOPRIL 10 MG TABLET PO SCH (10:50)
[2017-11-19] MEDS: THIAMINE HCL 100 MG TABLET PO SCH (10:50)
[2017-11-19] MEDS: FLUTICASONE/SALMETEROL DISKUS 500-50 MCG/DOSE IH SCH ×2 (10:51→17:27)
[2017-11-19] MEDS: LIDOCAINE 5% (700 MG) TRANSDERMAL ADH..PATCH TP SCH (10:51)
[2017-11-19] MEDS: DOCUSATE SODIUM 100 MG CAPSULE PO SCH ×2 (10:52→17:26)
[2017-11-19] MEDS: LACTULOSE SYRUP 20 GM/30 ML UDCUP PO SCH (12:33)
--- NOTE | 2017-11-19 16:28 | PDOC PROGRESS REPORT ---
Subjective Progress Note for:: 11/19/17 Subjective:: This patient was transferred from [facility] after being initially transferred from this hospital. He was treated for acute respiratory failure secondary to pneumonia, bilateral DVT and pulmonary emboli requiring intubation. He was returned back to this hospital after stabilizing and receiving 7 days of IV antibiotics for pneumonia. Patient says he feels better but still feels pretty weak. Reason For Visit: PE, PNA, COPD EXACERBATION, CHRONIC PAIN, TOBACCO Physical Exam Vital Signs: Temp Pulse Resp BP Pulse Ox 98.9 F 87 19 120/71 96 11/19/17 16:02 11/19/17 16:02 11/19/17 16:02 11/19/17 16:02 11/19/17 16:02 Intake & Output 11/18/17 11/19/17 11/20/17 06:59 06:59 06:59 Intake Total 837 459 Balance 837 459 Weight 66.1 kg Results Laboratory Results: 11/19/17 05:27 11/19/17 05:27 11/19/17 11/19/17 05:27 05:27 WBC 13.5 H RBC 5.49 Hgb 17.1 H Hct 52.7 H MCV 96 MCH 31.2 MCHC 32.6 RDW 17.0 H Plt Count 355 Seg Neutrophils % 70.8 Lymphocytes % 15.4 Monocytes % 12.2 Eosinophils % 1.2 Basophils % 0.4 Absolute Neutrophils 9.5 H Absolute Lymphocytes 2.1 Absolute Monocytes 1.6 H Absolute Eosinophils 0.2 Absolute Basophils 0.1 Sodium 140.3 Potassium 4.3 Chloride 98 Carbon Dioxide 37 H Anion Gap 5 BUN 19 Creatinine 0.46 L Est GFR ( Amer) > 60 Est GFR (Non-Af Amer) > 60 Glucose 130 H Calcium 9.5 Assessment & Plan - Time Time Spent with patient: 15-24 minutes Medications reviewed and adjusted accordingly: Yes Anticipated discharge: Home - Inpatient Certification Medical Necessity: Need Close Monitoring Due to Risk of Patient Decompensation - Plan Summary Plan Summary: Assessment and plan These are current diagnosis for this admission Pulmonary emboli secondary to DVT currently on Xarelto. 2. Chronic respiratory failure with hypoxia and hypercapnia will continue oxygen support. 3. Pneumonia due to unspecified organism left lower lobe. Completed 7 days of IV antibiotics #4 polycythemia secondary to COPD and tobacco dependence
[2017-11-19] MEDS: MELATONIN 3 MG TABLET PO SCH (21:39)
[2017-11-19] MEDS: MONTELUKAST SODIUM 10 MG TABLET PO SCH (21:39)
[2017-11-20] MEDS: OXYCODONE-ACETAMINOPHEN 5-325 MG TABLET PO PRN ×3 (03:10→21:41)
[2017-11-20] MEDS: OXYCODONE HCL IR 5 MG TABLET PO PRN ×3 (03:10→21:40)
[2017-11-20] MEDS: IPRATROPIUM/ALBUTEROL 0.5-2.5 MG/3 ML AMPUL NEB SCH ×3 (08:42→23:44)
[2017-11-20] MEDS: RIVAROXABAN 15 MG TABLET PO SCH ×2 (08:54→16:53)
[2017-11-20] MEDS: LISINOPRIL 10 MG TABLET PO SCH (09:53)
[2017-11-20] MEDS: METOPROLOL TARTRATE 25 MG TABLET PO SCH ×2 (09:53→21:13)
[2017-11-20] MEDS: DOCUSATE SODIUM 100 MG CAPSULE PO SCH ×2 (09:54→18:30)
[2017-11-20] MEDS: THIAMINE HCL 100 MG TABLET PO SCH (09:54)
[2017-11-20] MEDS: LACTULOSE SYRUP 20 GM/30 ML UDCUP PO SCH (09:55)
[2017-11-20] MEDS: LIDOCAINE 5% (700 MG) TRANSDERMAL ADH..PATCH TP SCH (09:55)
[2017-11-20] MEDS: FLUTICASONE/SALMETEROL DISKUS 500-50 MCG/DOSE IH SCH ×2 (09:55→18:30)
[2017-11-20] MEDS: MELATONIN 3 MG TABLET PO SCH (21:13)
[2017-11-20] MEDS: MONTELUKAST SODIUM 10 MG TABLET PO SCH (21:13)
[2017-11-20] MEDS ORDERED: NICOTINE 14 MG/24 HR PATCH.TD24 TD ONE (22:00)
[2017-11-20] MEDS ORDERED: AMOXICILLIN TR/POT CLAVULANATE 500-125 MG TAB PO ONE (23:30)
[2017-11-21] MEDS: OXYCODONE-ACETAMINOPHEN 5-325 MG TABLET PO PRN ×3 (04:04→17:55)
[2017-11-21] MEDS: OXYCODONE HCL IR 5 MG TABLET PO PRN ×3 (04:05→23:04)
[2017-11-21] MEDS ORDERED: AMOXICILLIN TR/POT CLAVULANATE 500-125 MG TAB PO SCH (06:00)
[2017-11-21 06:11] LABS: ABSOLUTE EOSINOPHILS # (AUTO) 0.2 10^3/uL (0.0-0.6); ABSOLUTE LYMPHOCYTES (AUTO) 1.7 10^3/uL (0.5-4.7); ABSOLUTE MONOCYTES (AUTO) 1.3 10^3/uL (0.1-1.4); ABSOLUTE NEUT (AUTO) 9.5 10^3/uL (1.7-8.2); BASOPHILS % (AUTO) 0.4 % (0-2); EOSINOPHILS % (AUTO) 1.9 % (0-6); HEMOGLOBIN 17.6 g/dL (13.5-17.0); LYMPHOCYTES % (AUTO) 13.3 % (13-45); MEAN CORPUSCULAR HGB CONC 32.5 g/dL (32.0-36.0); MEAN CORPUSCULAR VOLUME 95 fl (80-97); MONOCYTES % (AUTO) 9.9 % (3-13); PLATELET COUNT 433 10^3/uL (150-450); RED BLOOD COUNT 5.68 10^6/uL (4.35-5.55); SEGMENTED NEUTROPHILS % (AUTO) 74.5 % (42-78); TOTAL CELLS COUNTED % (AUTO) 100 %; WHITE BLOOD COUNT 12.7 10^3/uL (4.0-10.5)
[2017-11-21 06:25] LABS: ANION GAP 8 (5-19); BLOOD UREA NITROGEN 18 mg/dL (7-20); CALCIUM 9.5 mg/dL (8.4-10.2); CARBON DIOXIDE 33 mmol/L (22-30); CHLORIDE 98 mmol/L (98-107); GLUCOSE 110 mg/dL (75-110); POTASSIUM 5.9 mmol/L (3.6-5.0); SODIUM 138.7 mmol/L (137-145)
[2017-11-21] MEDS: RIVAROXABAN 15 MG TABLET PO SCH ×2 (08:00→17:43)
[2017-11-21] MEDS: IPRATROPIUM/ALBUTEROL 0.5-2.5 MG/3 ML AMPUL NEB SCH ×2 (09:12→15:37)
[2017-11-21] MEDS: LISINOPRIL 10 MG TABLET PO SCH (09:55)
[2017-11-21] MEDS: THIAMINE HCL 100 MG TABLET PO SCH (09:55)
[2017-11-21] MEDS: METOPROLOL TARTRATE 25 MG TABLET PO SCH ×2 (09:56→21:19)
[2017-11-21] MEDS: FLUTICASONE/SALMETEROL DISKUS 500-50 MCG/DOSE IH SCH ×2 (09:56→17:42)
[2017-11-21] MEDS: NICOTINE 14 MG/24 HR PATCH.TD24 TD SCH (09:57)
[2017-11-21] MEDS: LIDOCAINE 5% (700 MG) TRANSDERMAL ADH..PATCH TP SCH (09:58)
[2017-11-21] MEDS: DOCUSATE SODIUM 100 MG CAPSULE PO SCH ×2 (09:58→17:57)
[2017-11-21] MEDS: LACTULOSE SYRUP 20 GM/30 ML UDCUP PO SCH (09:58)
[2017-11-21] MEDS ORDERED: OXYCODONE HCL IR 5 MG TABLET PO PRN (10:28)
--- NOTE | 2017-11-21 15:21 | PDOC PROGRESS REPORT ---
Subjective Progress Note for:: 11/20/17 Subjective:: This patient was transferred from [facility] after being initially transferred from this hospital. He was treated for acute respiratory failure secondary to pneumonia, bilateral DVT and pulmonary emboli requiring intubation. He was returned back to this hospital after stabilizing and receiving 7 days of IV antibiotics for pneumonia. Patient says he feels better but still feels pretty weak. He is c/o back pain, he says it happened in ambulance Reason For Visit: PE, PNA, COPD EXACERBATION, CHRONIC PAIN, TOBACCO Physical Exam Vital Signs: Temp Pulse Resp BP Pulse Ox 99.1 F 87 18 111/71 92 11/20/17 12:51 11/20/17 12:51 11/20/17 12:51 11/20/17 12:51 11/20/17 12:51 Intake & Output 11/19/17 11/20/17 11/21/17 06:59 06:59 06:59 Intake Total 837 1775 Balance 837 1775 Weight 66.1 kg 67 kg General appearance: PRESENT: no acute distress, thin, other - ill looking, not toxic Head exam: PRESENT: atraumatic, normocephalic Eye exam: PRESENT: conjunctiva pink, EOMI, PERRLA. ABSENT: scleral icterus Ear exam: PRESENT: normal external ear exam Mouth exam: PRESENT: moist, tongue midline Neck exam: ABSENT: carotid bruit, JVD, lymphadenopathy, thyromegaly Respiratory exam: PRESENT: clear to auscultation rodrigo. ABSENT: rales, rhonchi, wheezes Cardiovascular exam: PRESENT: RRR. ABSENT: diastolic murmur, rubs, systolic murmur Pulses: PRESENT: normal dorsalis pedis pul Vascular exam: PRESENT: normal capillary refill GI/Abdominal exam: PRESENT: normal bowel sounds, soft. ABSENT: distended, guarding, mass, organolmegaly, rebound, tenderness Rectal exam: PRESENT: deferred Extremities exam: PRESENT: full ROM. ABSENT: calf tenderness, clubbing, pedal edema Neurological exam: PRESENT: alert, awake, oriented to person, oriented to place , oriented to time, oriented to situation, CN II-XII grossly intact. ABSENT: motor sensory deficit Psychiatric exam: PRESENT: appropriate affect, normal mood. ABSENT: homicidal ideation, suicidal ideation Skin exam: PRESENT: dry, intact, warm. ABSENT: cyanosis, rash Results Laboratory Results: 11/19/17 05:27 11/19/17 05:27 Assessment & Plan - Diagnosis (1) Pulmonary emboli Is this a current diagnosis for this admission?: Yes (2) Aspiration pneumonia Qualifiers: Aspiration pneumonia type: unspecified Laterality: left Lung location: lower lobe of lung Qualified Code(s): J69.0 - Pneumonitis due to inhalation of food and vomit (4) Pneumonia Qualifiers: Pneumonia type: due to unspecified organism Laterality: left Lung location: lower lobe of lung Qualified Code(s): J18.1 - Lobar pneumonia, unspecified organism Is this a current diagnosis for this admission?: Yes (5) Polycythemia secondary to hypoxia Is this a current diagnosis for this admission?: Yes (6) Respiratory failure Qualifiers: Chronicity: acute Respiratory failure complication: hypoxia and hypercapnia Qualified Code(s): J96.01 - Acute respiratory failure with hypoxia ; J96.02 - Acute respiratory failure with hypercapnia; J96.02 - Acute respiratory failure with hypercapnia; J96.02 - Acute respiratory failure with hypercapnia - Time Time Spent with patient: 15-24 minutes Anticipated discharge: Home Within: within 72 hours - Inpatient Certification Medical Necessity: Risk of Complication if Not Cared For in Hospital - Plan Summary Plan Summary: Assessment and plan These are current diagnosis for this admission Pulmonary emboli secondary to DVT Continue on Xarelto. 2. Chronic respiratory failure with hypoxia and hypercapnia -l continue oxygen support. 3. Pneumonia due to unspecified organism left lower lobe. Completed 7 days of IV antibiotics however will start on Po antibiotics as he is still has leukocytosis #4 polycythemia secondary to COPD and tobacco dependence #5HIV testing ordered
[2017-11-21] MEDS ORDERED: AMOXICILLIN TR/POT CLAVULANATE 500-125 MG TAB PO ONE (15:30)
[2017-11-21] MEDS: SODIUM POLYSTYRENE SULFONATE 15 GM/60 ML PO SCH ×2 (17:57→23:03)
[2017-11-21] MEDS ORDERED: TEMAZEPAM 15 MG CAPSULE PO PRN (18:53)
[2017-11-21 20:47] LABS: BLOOD UREA NITROGEN 17 mg/dL (7-20); CALCIUM 9.7 mg/dL (8.4-10.2); GLUCOSE 99 mg/dL (75-110)
[2017-11-21 21:06] LABS: ANION GAP 5 (5-19); CARBON DIOXIDE 34 mmol/L (22-30); CHLORIDE 99 mmol/L (98-107); POTASSIUM 5.3 mmol/L (3.6-5.0); SODIUM 137.6 mmol/L (137-145)
[2017-11-21] MEDS: AMOXICILLIN TR/POT CLAVULANATE 500-125 MG TAB PO SCH (21:18)
[2017-11-21] MEDS: MONTELUKAST SODIUM 10 MG TABLET PO SCH (21:18)
[2017-11-21] MEDS: MELATONIN 3 MG TABLET PO SCH (21:20)
[2017-11-21] MEDS ORDERED: LIDOCAINE 5% (700 MG) TRANSDERMAL ADH..PATCH TP SCH (22:00)
[2017-11-22] MEDS: OXYCODONE-ACETAMINOPHEN 5-325 MG TABLET PO PRN ×3 (00:17→12:49)
[2017-11-22] MEDS: IPRATROPIUM/ALBUTEROL 0.5-2.5 MG/3 ML AMPUL NEB SCH ×2 (00:31→07:40)
[2017-11-22] MEDS: OXYCODONE HCL IR 5 MG TABLET PO PRN ×2 (04:01→12:50)
[2017-11-22] MEDS: SODIUM POLYSTYRENE SULFONATE 15 GM/60 ML PO SCH ×2 (04:34→12:41)
[2017-11-22] MEDS: AMOXICILLIN TR/POT CLAVULANATE 500-125 MG TAB PO SCH ×2 (05:48→13:49)
[2017-11-22 05:56] LABS: HEMATOCRIT 51.4 % (37.9-51.0); HEMOGLOBIN 16.8 g/dL (13.5-17.0); MEAN CORPUSCULAR HGB CONC 32.7 g/dL (32.0-36.0); MEAN CORPUSCULAR VOLUME 95 fl (80-97); RED BLOOD COUNT 5.42 10^6/uL (4.35-5.55); WHITE BLOOD COUNT 14.2 10^3/uL (4.0-10.5)
[2017-11-22 06:20] LABS: ANION GAP 8 (5-19); BLOOD UREA NITROGEN 20 mg/dL (7-20); CALCIUM 9.5 mg/dL (8.4-10.2); CARBON DIOXIDE 31 mmol/L (22-30); CHLORIDE 99 mmol/L (98-107); GLUCOSE 87 mg/dL (75-110); POTASSIUM 5.2 mmol/L (3.6-5.0); SODIUM 137.6 mmol/L (137-145)
[2017-11-22 06:22] LABS: ABSOLUTE MONOCYTES # (MANUAL) 1.6 10^3/uL (0.1-1.4); ABSOLUTE NEUTROPHILS# (MANUAL) 9.7 10^3/uL (1.7-8.2); BASOPHILS % (MANUAL) 0 % (0-2); EOSINOPHILS % (MANUAL) 0 % (0-6); LYMPHOCYTES % (MANUAL) 21 % (13-45); MONOCYTES % (MANUAL) 11 % (3-13); SEGMENTED NEUTROPHILS % (MAN) 68 % (42-78); TOTAL CELLS COUNTED 100
[2017-11-22 06:25] LABS: ANISOCYTOSIS 1+; PLATELET CLUMPS PRESENT; PLATELET COMMENT ADEQUATE; PLATELET COUNT 443 10^3/uL (150-450); POIKILOCYTOSIS SLIGHT; STOMATOCYTES SLIGHT; TEAR DROP CELLS SLIGHT; TOXIC GRANULATION SLIGHT
[2017-11-22] MEDS: RIVAROXABAN 15 MG TABLET PO SCH (07:59)
[2017-11-22] MEDS: LISINOPRIL 10 MG TABLET PO SCH (10:33)
[2017-11-22] MEDS: DOCUSATE SODIUM 100 MG CAPSULE PO SCH (10:33)
[2017-11-22] MEDS: NICOTINE 14 MG/24 HR PATCH.TD24 TD SCH (10:33)
[2017-11-22] MEDS: THIAMINE HCL 100 MG TABLET PO SCH (10:33)
[2017-11-22] MEDS: FLUTICASONE/SALMETEROL DISKUS 500-50 MCG/DOSE IH SCH (10:34)
[2017-11-22] MEDS: METOPROLOL TARTRATE 25 MG TABLET PO SCH (10:34)
[2017-11-22] MEDS: LACTULOSE SYRUP 20 GM/30 ML UDCUP PO SCH (10:36)
--- NOTE | 2017-11-22 14:19 | PDOC DISCHARGE SUMMARY ---
General - Admit/Disc Date/PCP Admission Date/Primary Care Provider: 11/18/17 14:25 Discharge Date: 11/22/17 - Discharge Diagnosis (1) Pulmonary emboli Is this a current diagnosis for this admission?: Yes (4) Pneumonia Is this a current diagnosis for this admission?: Yes (5) Polycythemia secondary to hypoxia Is this a current diagnosis for this admission?: Yes - Additional Information Resuscitation Status: Do Not Intubate Discharge Diet: As Tolerated Discharge Activity: Activity As Tolerated Prescriptions: Lidocaine [Lidoderm 5% (700 mg) Transdermal Patch] 2 patch TP QHS #30 adh..patch Amox Tr/Potassium Clavulanate [Augmentin "500" Tablet] 1 tab PO Q8 #10 tablet Fluticasone/Salmeterol [Advair 500-50 Diskus 14 Dose/Diskus] 1 inh IH BID #1 inhaler Lactulose [Cephulac Syrup 20 gm/30 ml Udcup] 20 gm PO DAILY #10 udc Lisinopril [Prinivil 10 mg Tablet] 10 mg PO DAILY #30 tablet Metoprolol Tartrate [Lopressor 25 mg Tablet] 12.5 mg PO Q12 #60 tablet Home Medications: Albuterol Sulfate [Albuterol Sulfate 2.5mg/3 mL] 1 vial NEB ASDIR PRN 11/19/17 Albuterol Sulfate [Proair HFA Inhalation Aerosol 8.5 gm MDI] 3 puff PO Q4HP PRN 11/19/17 Montelukast Sodium [Singulair 10 mg Tablet] 10 mg PO QHS 11/19/17 Oxycodone HCl/Acetaminophen [Percocet 10-325 mg Tablet] 1 each PO TID PRN Amox Tr/Potassium Clavulanate [Augmentin "500" Tablet] 1 tab PO Q8 #10 tablet 11/22/17 Fluticasone/Salmeterol [Advair 500-50 Diskus 14 Dose/Diskus] 1 inh IH BID #1 inhaler 11/22/17 Ipratropium/Albuterol Sulfate [Duoneb 3 ml Ampul] 3 ml NEB RTQ8 vial.neb Lactulose [Cephulac Syrup 20 gm/30 ml Udcup] 20 gm PO DAILY #10 udc 02/04/18 Lidocaine [Lidoderm 5% (700 mg) Transdermal Patch] 2 patch TP QHS #30 adh..patch 11/22/17 Lisinopril [Prinivil 10 mg Tablet] 10 mg PO DAILY #30 tablet 11/22/17 Metoprolol Tartrate [Lopressor 25 mg Tablet] 12.5 mg PO Q12 #60 tablet 11/22/17 Rivaroxaban [Xarelto 15 mg Tablet] 15 mg PO BIDBS tablet 11/22/17 Thiamine HCl [Thiamine 100 mg Tablet] 100 mg PO DAILY tablet 11/22/17 History of Present Illness History of Present Illness: ANTONIA HUNTER III is a 42 year old male Hospital Course Hospital Course: This patient presented to [facility] with acute respiratory failure secondary to pneumonia, pulmonary emboli as well as DVT and ultimately required intubation and transfer to a tertiary care facility/[facility]. He was treated and stabilized and ultimately self extubated. He received 7 days of IV antibiotics and was then transferred back to [place] for unspecified reasons. Patient was started on oral antibiotics and has been continued on Xarelto. He will also require home oxygen as he is hypoxemic with his PO2 dropping down to 80 on ambulation he otherwise has been relatively hemodynamically stable and at this time it is felt that he is stable enough to be discharged home once home oxygen has been arranged for him. Physical Exam Vital Signs: Temp Pulse Resp BP Pulse Ox 97.8 F 65 19 119/76 93 11/22/17 12:39 11/22/17 12:39 11/22/17 12:39 11/22/17 12:39 11/22/17 12:39 Intake & Output 11/21/17 11/22/17 11/23/17 06:59 06:59 06:59 Intake Total 835 1281 386 Balance 835 1281 386 Weight 62.2 kg General appearance: PRESENT: no acute distress, thin Head exam: PRESENT: atraumatic Eye exam: PRESENT: PERRLA Ear exam: PRESENT: normal external ear exam Mouth exam: PRESENT: dry mucosa Neck exam: ABSENT: carotid bruit, JVD, lymphadenopathy, thyromegaly Respiratory exam: PRESENT: clear to auscultation rodrigo. ABSENT: rales, rhonchi, wheezes Cardiovascular exam: PRESENT: RRR. ABSENT: diastolic murmur, rubs, systolic murmur Pulses: PRESENT: normal dorsalis pedis pul GI/Abdominal exam: PRESENT: normal bowel sounds, soft. ABSENT: distended, guarding, mass, organolmegaly, rebound, tenderness Rectal exam: PRESENT: deferred Extremities exam: PRESENT: full ROM. ABSENT: calf tenderness, clubbing, pedal edema Neurological exam: PRESENT: alert, awake, oriented to person, oriented to place , oriented to time, oriented to situation, CN II-XII grossly intact. ABSENT: motor sensory deficit Psychiatric exam: PRESENT: appropriate affect, normal mood. ABSENT: homicidal ideation, suicidal ideation Results Laboratory Results: 11/22/17 05:38 11/22/17 05:38 11/21/17 11/22/17 11/22/17 20:15 05:38 05:38 WBC 14.2 H RBC 5.42 Hgb 16.8 Hct 51.4 H MCV 95 MCH 31.0 MCHC 32.7 RDW 17.0 H Plt Count 443 Seg Neutrophils % Not Reportable Lymphocytes % Not Reportable Monocytes % Not Reportable Eosinophils % Not Reportable Basophils % Not Reportable Absolute Neutrophils Not Reportable Absolute Lymphocytes Not Reportable Absolute Monocytes Not Reportable Absolute Eosinophils Not Reportable Absolute Basophils Not Reportable Sodium 137.6 137.6 Potassium 5.3 H 5.2 H Chloride 99 99 Carbon Dioxide 34 H 31 H Anion Gap 5 8 BUN 17 20 Creatinine 0.61 0.59 Est GFR ( Amer) > 60 > 60 Est GFR (Non-Af Amer) > 60 > 60 Glucose 99 87 Calcium 9.7 9.5 Plan Time Spent: Greater than 30 Minutes
[2017-11-22 15:13] VITALS: BP 130/70
== END 2017-11-22 16:10 | disposition home or self-care (01) | DRG 193 ==
LOC: 3S 14:25 → UNDOADMIN 14:25
PROVIDERS: ADMIT Internal Medicine Pulmonary Disease; ATTEND Internal Medicine Pulmonary Disease
PROC: 3E0F73Z Introduction of Anti-inflammatory into Respiratory Tract, Via Natural or Artificial Opening (ICD-10-PCS; principal; 2017-11-19)
DX: J18.9 Pneumonia, unspecified organism (principal); I26.99 Other pulmonary embolism without acute cor pulmonale; I82.403 Acute embolism and thrombosis of unspecified deep veins of lower extremity, bilateral; J96.11 Chronic respiratory failure with hypoxia; J96.12 Chronic respiratory failure with hypercapnia; D75.1 Secondary polycythemia; K59.00 Constipation, unspecified; J44.9 Chronic obstructive pulmonary disease, unspecified; F17.200 Nicotine dependence, unspecified, uncomplicated; I10 Essential (primary) hypertension; Z86.711 Personal history of pulmonary embolism; Z86.718 Personal history of other venous thrombosis and embolism; G89.29 Other chronic pain; F31.9 Bipolar disorder, unspecified; Z66 Do not resuscitate; Z82.49 Family history of ischemic heart disease and other diseases of the circulatory system; Z88.8 Allergy status to other drugs, medicaments and biological substances
CPT/HCPCS: 36415; 80048; 85025; 86701; 86702; J0360; J3490; J7620

== ENCOUNTER 2017-11-25 23:19 | Emergency (ER) | payer MEDICAID ==
--- NOTE | 2017-11-26 01:48 | ER Document Report ---
ED Medical Screen (RME) - General Chief Complaint: Abnormal Lab Results Stated Complaint: CHEST PAIN Time Seen by Provider: 11/26/17 01:45 Mode of Arrival: Ambulatory Information source: Patient Notes: 42-year-old male presents to ED for "bad EKG at primary doctor's office. He states he over the last 3 weeks has been in [place] and should back to here for pulmonary emboli DVT CHF pneumonia and collapsed lung he states he was in an induced coma for 9 days and then was shipped back here and stay here another for 5 days. He states he has a DO NOT INTUBATE order. He states his primary doctor told him if he did not come to the hospital he would not wake up in the morning.. I have greeted and performed a rapid initial assessment of this patient. A comprehensive ED assessment and evaluation of the patient, analysis of test results and completion of medical decision making process will be conducted by an additional ED providers. TRAVEL OUTSIDE OF THE [place] IN LAST 30 DAYS: No - Related Data Allergies/Adverse Reactions: disulfiram [From Antabuse] Allergy (Verified 11/09/17 16:26) imipramine [Imipramine] Allergy (Verified 11/09/17 16:26) tramadol Allergy (Verified 11/09/17 16:26) Past Medical History - Past Medical History Cardiac Medical History: Reports: Hx DVT, Hx Hypertension, Hx Pulmonary Embolism Denies: Hx Coronary Artery Disease, Hx Heart Attack Pulmonary Medical History: Reports: Hx Asthma, Hx Bronchitis, Hx COPD Denies: Hx Pneumonia Neurological Medical History: Reports: Hx Cerebrovascular Accident. Denies: Hx Seizures Renal/ Medical History: Denies: Hx Peritoneal Dialysis Musculoskeltal Medical History: Denies Hx Arthritis Psychiatric Medical History: Reports: Hx Bipolar Disorder, Hx Depression Past Surgical History: Reports: Hx Abdominal Surgery - hernia x 3, Hx Orthopedic Surgery - left knee - Immunizations Hx Diphtheria, Pertussis, Tetanus Vaccination: No History of Influenza Vaccine for 07/2017 - 12/2017 Season: Yes Influenza Administration Date for 07/2017 - 12/2017 Season: 11/18/17
[2017-11-26 03:30] LABS: ABSOLUTE BASOPHILS # (AUTO) 0.1 10^3/uL (0.0-0.2); ABSOLUTE EOSINOPHILS # (AUTO) 0.2 10^3/uL (0.0-0.6); ABSOLUTE LYMPHOCYTES (AUTO) 3.1 10^3/uL (0.5-4.7); ABSOLUTE MONOCYTES (AUTO) 0.8 10^3/uL (0.1-1.4); ABSOLUTE NEUT (AUTO) 9.5 10^3/uL (1.7-8.2); BASOPHILS % (AUTO) 0.7 % (0-2); EOSINOPHILS % (AUTO) 1.1 % (0-6); HEMATOCRIT 50.6 % (37.9-51.0); HEMOGLOBIN 16.5 g/dL (13.5-17.0); LYMPHOCYTES % (AUTO) 22.6 % (13-45); MEAN CORPUSCULAR HEMOGLOBIN 31.1 pg (27.0-33.4); MEAN CORPUSCULAR HGB CONC 32.7 g/dL (32.0-36.0); MEAN CORPUSCULAR VOLUME 95 fl (80-97); PLATELET COUNT 706 10^3/uL (150-450); RED CELL DISTRIBUTION WIDTH 17.1 % (11.5-14.0); SEGMENTED NEUTROPHILS % (AUTO) 69.6 % (42-78); TOTAL CELLS COUNTED % (AUTO) 100 %; WHITE BLOOD COUNT 13.7 10^3/uL (4.0-10.5)
[2017-11-26 03:52] LABS: ALANINE AMINOTRANSFERASE 33 U/L (21-72); ALBUMIN 3.7 g/dL (3.5-5.0); ALKALINE PHOSPHATASE 97 U/L (38-126); ANION GAP 9 (5-19); ASPARTATE AMINO TRANSFERASE 27 U/L (17-59); BILIRUBIN,DIRECT 0.2 mg/dL (0.0-0.4); BILIRUBIN,TOTAL 0.2 mg/dL (0.2-1.3); BLOOD UREA NITROGEN 13 mg/dL (7-20); CALCIUM 9.7 mg/dL (8.4-10.2); CARBON DIOXIDE 34 mmol/L (22-30); CHLORIDE 99 mmol/L (98-107); CREATINE KINASE 23 U/L (55-170); GLUCOSE 91 mg/dL (75-110); POTASSIUM 5.1 mmol/L (3.6-5.0); SODIUM 141.9 mmol/L (137-145); TOTAL PROTEIN 5.9 g/dL (6.3-8.2)
[2017-11-26 03:57] LABS: CREATINE KINASE MB 0.72 ng/mL (<4.55)
--- NOTE | 2017-11-26 03:57 | RADIOLOGY REPORT (SQ) ---
EXAM DESCRIPTION: CHEST PA/LAT CLINICAL HISTORY: bad ekg at primary md cardiac hx COMPARISON: 11/11/2017 FINDINGS: Frontal and lateral views of the chest. The cardiomediastinal silhouette has normal size and contour. Small bilateral pleural effusions, left greater than right. No pneumothorax. No displaced rib fractures identified. Upper abdominal soft tissues are unremarkable. IMPRESSION: 1. Small bilateral pleural effusions, left greater than right.
[2017-11-26 04:01] LABS: TROPONIN I < 0.012 ng/mL
--- NOTE | 2017-11-26 06:59 | ER Document Report ---
ED General - General Chief Complaint: Abnormal Lab Results Stated Complaint: CHEST PAIN Time Seen by Provider: 11/26/17 01:45 Mode of Arrival: Ambulatory TRAVEL OUTSIDE OF THE [place] IN LAST 30 DAYS: No - HPI Patient complains to provider of: EKG changes Notes: Patient coming in for evaluation for EKG changes. Patient states he was seen by his PCP and not had EKG changes therefore started told to come into the ER for further evaluation. Patient otherwise upon my evaluation resting company states he has no other complaints. Upon my evaluation patient sleeping easily arousable. Denies fevers chills nausea vomiting diarrhea denies any chest pain abdominal pain denies any nausea vomiting. - Related Data Allergies/Adverse Reactions: disulfiram [From Antabuse] Allergy (Verified 11/09/17 16:26) imipramine [Imipramine] Allergy (Verified 11/09/17 16:26) tramadol Allergy (Verified 11/09/17 16:26) Past Medical History - General Information source: Patient - Social History Smoking Status: Current Every Day Smoker Family History: COPD, Hypertension Patient has suicidal ideation: No Patient has homicidal ideation: No - Past Medical History Cardiac Medical History: Reports: Hx DVT, Hx Hypertension, Hx Pulmonary Embolism Denies: Hx Coronary Artery Disease, Hx Heart Attack Pulmonary Medical History: Reports: Hx Asthma, Hx Bronchitis, Hx COPD Denies: Hx Pneumonia Neurological Medical History: Reports: Hx Cerebrovascular Accident. Denies: Hx Seizures Renal/ Medical History: Denies: Hx Peritoneal Dialysis Musculoskeltal Medical History: Denies Hx Arthritis Psychiatric Medical History: Reports: Hx Bipolar Disorder, Hx Depression Past Surgical History: Reports: Hx Abdominal Surgery - hernia x 3, Hx Orthopedic Surgery - left knee - Immunizations Hx Diphtheria, Pertussis, Tetanus Vaccination: No Review of Systems - Review of Systems Constitutional: No symptoms reported EENT: No symptoms reported Cardiovascular: denies: No symptoms reported - EKG change Respiratory: No symptoms reported Gastrointestinal: No symptoms reported Genitourinary: No symptoms reported Male Genitourinary: No symptoms reported Musculoskeletal: No symptoms reported Skin: No symptoms reported Hematologic/Lymphatic: No symptoms reported Neurological/Psychological: No symptoms reported Physical Exam - Vital signs Vitals: Temp Pulse Resp BP Pulse Ox 98.0 F 104 H 18 113/72 97 11/26/17 01:49 11/26/17 01:49 11/26/17 01:49 11/26/17 01:49 11/26/17 01:49 Interpretation: Normal - General General appearance: Appears well, Alert - HEENT Head: Normocephalic, Atraumatic Eyes: Normal Pupils: PERRL - Respiratory Respiratory status: No respiratory distress Chest status: Nontender Breath sounds: Normal Chest palpation: Normal - Cardiovascular Rhythm: Regular Heart sounds: Normal auscultation Murmur: No - Abdominal Inspection: Normal Distension: No distension Bowel sounds: Normal Tenderness: Nontender Organomegaly: No organomegaly - Back Back: Normal, Nontender - Extremities General upper extremity: Normal inspection, Nontender, Normal color, Normal ROM , Normal temperature General lower extremity: Normal inspection, Nontender, Edema, Normal color, Normal ROM, Normal temperature, Normal weight bearing. No: Steven's sign - Neurological Neuro grossly intact: Yes Cognition: Normal Orientation: AAOx4 Malcolm Coma Scale Eye Opening: Spontaneous Malcolm Coma Scale Verbal: Oriented Malcolm Coma Scale Motor: Obeys Commands Malcolm Coma Scale Total: 15 Speech: Normal Motor strength normal: LUE, RUE, LLE, RLE Sensory: Normal - Psychological Associated symptoms: Normal affect, Normal mood - Skin Skin Temperature: Warm Skin Moisture: Dry Skin Color: Normal Course - Re-evaluation Re-evalutation: 11/26/17 14:50 Patient laboratory studies not show any critical pathology. Patient states he is feeling much better. The EKG looks similar to previous was in the past. Will discharge patient home this time the critical findings. - Vital Signs Vital signs: Temp Pulse Resp BP Pulse Ox 98.0 F 81 16 134/96 H 95 11/26/17 01:49 11/26/17 04:00 11/26/17 07:01 11/26/17 07:00 11/26/17 07:01 - Laboratory Result Diagrams: 11/26/17 03:09 11/26/17 03:09 Laboratory results interpreted by me: 11/26/17 11/26/17 03:09 03:09 WBC 13.7 H RDW 17.1 H Plt Count 706 H Absolute Neutrophils 9.5 H Potassium 5.1 H Carbon Dioxide 34 H Creatinine 0.51 L Creatine Kinase 23 L Total Protein 5.9 L Discharge - Discharge Clinical Impression: Ankle swelling Disposition: HOME, SELF-CARE Instructions: Congestive Heart Failure ([facility]), Edema, Peripheral ([facility]) Additional Instructions: Your EKG does not show any acute changes today from previous EKGs here in the ER. Laboratory studies also did not show any acute changes. Please follow-up with your primary care physician continue to take her medications as prescribed. Continue her oxygen at home please watch her diet and watch her salt intake because that this will contribute to swelling. Elevate the limbs that are swollen. Return to ER symptoms worsen.
[2017-11-26 07:11] VITALS: BP 134/96
--- NOTE | 2017-11-26 09:21 | EKG REPORT ---
SEVERITY:- ABNORMAL ECG - SINUS RHYTHM PROBABLE LEFT ATRIAL ABNORMALITY BORDERLINE RIGHT AXIS DEVIATION CONSIDER LEFT VENTRICULAR HYPERTROPHY LATERAL INFARCT, OLD ANTERIOR Q WAVES, POSSIBLY DUE TO LVH : Confirmed by: Nader Park 26-Nov-2017 09:21:01
== END 2017-11-26 07:11 | disposition home or self-care (01) ==
LOC: ER 23:19
DX: M25.473 Effusion, unspecified ankle (principal); R07.9 Chest pain, unspecified; F17.200 Nicotine dependence, unspecified, uncomplicated; I10 Essential (primary) hypertension; J44.9 Chronic obstructive pulmonary disease, unspecified; Z88.6 Allergy status to analgesic agent; Z86.718 Personal history of other venous thrombosis and embolism; Z86.711 Personal history of pulmonary embolism; Z86.73 Personal history of transient ischemic attack (TIA), and cerebral infarction without residual deficits
CPT/HCPCS: 36415; 71046; 80053; 82550; 82553; 84484; 85025; 93005; 93010; 99285

== ENCOUNTER → 2018-01-06 | Outpatient (CLI) | payer MEDICAID ==
--- NOTE | 2018-01-06 16:25 | RADIOLOGY REPORT (SQ) ---
EXAM DESCRIPTION: BARIUM SWALLOW PHARYNX ONLY COMPLETED DATE/TIME: 01/06/2018 8:28 am REASON FOR STUDY: CYCLICAL VOMITING (G43.A0) G43.A0 CYCLICAL VOMITING, NOT INTRACTABLE COMPARISON: CT ANGIO CHEST 11/09/2017 TECHNIQUE: Under fluoroscopic guidance, patient ingested effervescent granules followed by thick and thin barium. Fluoroscopic spot images and routine radiographic images acquired and stored on PACS. 12 MM BARIUM TABLET GIVEN: Yes No significant delay in passage. LIMITATIONS: None. FLUOROSCOPY TIME: FLUORO TIME: 2 minutes 10 seconds 4 series of digital images saved to PACS. FINDINGS: NEUROMUSCULAR COORDINATION OF SWALLOW: Normal. No aspiration. ESOPHAGEAL MOTILITY: Normal peristalsis. No esophageal spasm. ESOPHAGEAL MUCOSA: Normal mucosa without masses or ulceration. GASTRO-ESOPHAGEAL JUNCTION: No hiatal hernia or reflux. NON-GI TRACT STRUCTURES: No significant finding. OTHER: No other significant finding. IMPRESSION: NORMAL DOUBLE CONTRAST BARIUM SWALLOW. COMMENT: Quality ID [id number]: Final reports for procedures using fluoroscopy that document radiation exp osure indices, or exposure time and number of fluorographic images (if radiation exposure indices are not available) TECHNICAL DOCUMENTATION: JOB ID: [id number] [employer]- All Rights Reserved Reading location - IP/workstation name: [email or web address]
== END ==
LOC: RAD 07:51
DX: G43.A0 Cyclical vomiting, in migraine, not intractable (principal)
CPT/HCPCS: 74210

== ENCOUNTER → 2018-01-07 | Outpatient (CLI) | payer MEDICAID ==
--- NOTE | 2018-01-07 16:22 | RADIOLOGY REPORT (SQ) ---
EXAM DESCRIPTION: VENOUS BILATERAL LOWER COMPLETED DATE/TIME: 01/07/2018 3:07 pm REASON FOR STUDY: CHRONIC THROMBOSIS OF DEEP VEIN I82.593 CHRONIC EMBOLISM AND THOMBOS OF DEEP VEIN OF LOW EXT COMPARISON: None. TECHNIQUE: Dynamic and static martino scale and color images acquired of both lower extremity venous sy stems. Selected spectral images acquired with additional compression and augmentation maneuvers. Imag es stored on PACS. LIMITATIONS: None. FINDINGS: RIGHT LEG COMMON FEMORAL AND FEMORAL: Normal phasicity, compression and augmentation. No visualized echogenic m aterial on martino scale. No defects on color images. POPLITEAL: Normal compression and augmentation. No visualized echogenic material on martino scale. No de fects on color images. CALF VESSELS: Normal compression and augmentation. No visualized echogenic material on martino scale. No defects on color image. GSV AND SSV: Normal compression. No visualized echogenic material on martino scale. No defects on color images. ANY DEEP VENOUS INSUFFICIENCY: Not evaluated. ANY EVIDENCE OF POPLITEAL CYST: No. OTHER: No other significant finding. LEFT LEG COMMON FEMORAL AND FEMORAL: Normal phasicity, compression and augmentation. No visualized echogenic m aterial on martino scale. No defects on color images. POPLITEAL: Normal compression and augmentation. No visualized echogenic material on martino scale. No de fects on color images. CALF VESSELS: Normal compression and augmentation. No visualized echogenic material on martino scale. No defects on color images. GSV AND SSV: Normal compression. No visualized echogenic material on martino scale. No defects on color images. ANY DEEP VENOUS INSUFFICIENCY: Not evaluated. ANY EVIDENCE POPLITEAL CYST: No. OTHER: No other significant finding. IMPRESSION: NO EVIDENCE DVT OR SVT IN EITHER LEG AT THIS TIME. TECHNICAL DOCUMENTATION: JOB ID: [id number] [employer]- All Rights Reserved Reading location - IP/workstation name: [email or web address]
== END ==
LOC: SP 12:57
DX: I82.593 Chronic embolism and thrombosis of other specified deep vein of lower extremity, bilateral (principal)
CPT/HCPCS: 93970

== ENCOUNTER 2018-01-25 03:23 | Emergency (ER) | payer MEDICAID ==
--- NOTE | 2018-01-25 03:33 | ER Document Report ---
ED General - General Stated Complaint: SEIZURES Time Seen by Provider: 01/25/18 03:30 Notes: This is a 42-year-old male brought in by EMS for seizure versus stroke. Apparently he was talking with his , having an argument when he felt his whole right face "draw up" which he describes as involuntary contraction of the right side of his face and neck and deviation of his jaw to the right. He describes this in great detail but states that he cannot remember it. His apparently reported a facial droop but when the paramedics got to him there were no neuro deficits. Paramedics described him having these "focal seizures" where he would lean to the right, bend at the waist and have some rhythmic jerking but was still talking to them and awake and alert at this time. Blood sugar was normal vital signs were initially tachycardic with possible SVT and they gave him several doses of Valium which resulted in slightly improved movements. He denies headache and currently has no symptoms. History of pain management chronic pain medications, recent episodes of cyclic vomiting and he states that he has not had any food for 4 days. He also has a history of chronic venous thromboembolic disease on long-term anticoagulation and pulmonary hypertension. TRAVEL OUTSIDE OF THE [place] IN LAST 30 DAYS: No - Related Data Allergies/Adverse Reactions: disulfiram [From Antabuse] Allergy (Verified 11/09/17 16:26) imipramine [Imipramine] Allergy (Verified 11/09/17 16:26) tramadol Allergy (Verified 11/09/17 16:26) Past Medical History - General Information source: Patient, Relative - Social History Smoking Status: Current Every Day Smoker Family History: COPD, Hypertension - Past Medical History Cardiac Medical History: Reports: Hx DVT, Hx Hypertension, Hx Pulmonary Embolism Denies: Hx Coronary Artery Disease, Hx Heart Attack Pulmonary Medical History: Reports: Hx Asthma, Hx Bronchitis, Hx COPD Denies: Hx Pneumonia Neurological Medical History: Reports: Hx Cerebrovascular Accident. Denies: Hx Seizures Renal/ Medical History: Denies: Hx Peritoneal Dialysis Musculoskeltal Medical History: Denies Hx Arthritis Psychiatric Medical History: Reports: Hx Bipolar Disorder, Hx Depression Past Surgical History: Reports: Hx Abdominal Surgery - hernia x 3, Hx Orthopedic Surgery - left knee - Immunizations Hx Diphtheria, Pertussis, Tetanus Vaccination: No Review of Systems - Review of Systems Notes: REVIEW OF SYSTEMS GEN: Denies fever, chills, weight loss ENT: Denies sore throat, nasal discharge, ear pain EYES: Denies blurry vision, eye pain, discharge CV: Denies chest pain, palpitations, edema RESP: Denies cough, shortness of breath, wheezing GI: Denies abdominal pain, nausea, vomiting, diarrhea MSK: Denies joint pain/swelling, edema, SKIN: Denies rash, skin lesions LYMPH: Denies swollen glands/lymph nodes NEURO: Denies headache, focal weakness or numbness, dizziness. Involuntary facial movements. PSYCH: Denies depression, suicidal or homicidal ideation PHYSICAL EXAMINATION General: No acute distress, well-nourished Head: Atraumatic, normocephalic ENT: Mouth normal, oropharynx moist, no exudates or tonsillar enlargement Eyes: Conjunctiva normal, pupils equal, lids normal. Bilateral eyelid edema. Neck: No JVD, supple, no guarding CVS: Normal rate, regular rhythm, no murmurs Resp: No resp distress, equal and normal breath sounds bilaterally GI: Nondistended, soft, no tenderness to palpation, no rebound or guarding Ext: No deformities, no edema, normal range of motion in upper and lower ext Back: No CVA or midline TTP Skin: No rash, warm Lymphatic: No lymphadeopathy noted Neuro: Awake, alert. Face symmetric. GCS 15. Cranial nerves II through XII intact. No clonus. Good strength in all 4 extremities. Subjective decreased sensation on bilateral triceps scan and lateral thighs bilaterally, the rest of sensation is normal. Intact bond writer and strength in all 4 extremities with no pronator drift. Physical Exam - Vital signs Vitals: Temp 98.0 F 01/25/18 03:54 Course - Re-evaluation Re-evalutation: 01/25/18 04:23 Patient presents with an episode consisting of either facial tremor dystonia or possible focal seizure. There is no evidence of stroke based on his story and his neurologic exam is quite spotty with random distribution of sensory deficit subjectively but normal motor. Differential includes electrolyte abnormalities like hyponatremia hypokalemia and hypocalcemia. I doubt that this is TIA. Patient had labs done which show only mild hypernatremia consistent with his history of decreased oral intake in the setting of chronic recurrent cyclic vomiting. His CT scan is negative. His CBC is pending. At about 4:20 AM the tech was preparing to assess the patient he woke up from a sleep tore off all of his monitor leads and ran out the door violently yelling "I want to get out of here." His stated "please just give him the AMA paperwork so we can take him home. At this time I see no evidence of acute medical illness, I did tell the that I had planned on giving him some IV fluids however if he does not want to stay for this I think the discharge is reasonable. I asked him to follow-up with his primary care doctor. I have discussed with the patient there likely diagnosis, aftercare plan, follow-up plans and my usual and customary return precautions. They verbalized understanding of this. - Vital Signs Vital signs: Temp Pulse Resp BP Pulse Ox 98.0 F 01/25/18 03:54 - Laboratory Result Diagrams: 01/25/18 03:45 01/25/18 03:45 Laboratory results interpreted by me: 01/25/18 01/25/18 03:45 03:45 RDW 15.3 H Sodium 148.5 H Carbon Dioxide 37 H - Diagnostic Test Radiology reviewed: Image reviewed, Reports reviewed - EKG Interpretation by Me EKG shows normal: Sinus rhythm, Intervals, QRS Complexes, ST-T Waves Rate: Normal When compared to previous EKG there are: No significant change Discharge - Discharge Clinical Impression: Dystonia Condition: Good Disposition: HOME, SELF-CARE Additional Instructions: He was seen in the emergency room for what sounds like a dystonic reaction versus a small seizure. Your CAT scan and lab testing were normal except for very mild high sodium and probable dehydration. You elected to leave the hospital before treatment for your dehydration. I would like you to follow-up with your primary care doctor in the next 2 days in order to reassess you. If you develop any further symptoms or concerns please return to the emergency room to be reassessed.
[2018-01-25 04:04] LABS: ABSOLUTE BASOPHILS # (AUTO) 0.1 10^3/uL (0.0-0.2); ABSOLUTE EOSINOPHILS # (AUTO) 0.2 10^3/uL (0.0-0.6); ABSOLUTE LYMPHOCYTES (AUTO) 3.2 10^3/uL (0.5-4.7); ABSOLUTE MONOCYTES (AUTO) 0.6 10^3/uL (0.1-1.4); ABSOLUTE NEUT (AUTO) 4.6 10^3/uL (1.7-8.2); BASOPHILS % (AUTO) 0.7 % (0-2); EOSINOPHILS % (AUTO) 1.9 % (0-6); HEMATOCRIT 41.3 % (37.9-51.0); HEMOGLOBIN 14.1 g/dL (13.5-17.0); LYMPHOCYTES % (AUTO) 36.9 % (13-45); MEAN CORPUSCULAR HEMOGLOBIN 32.1 pg (27.0-33.4); MEAN CORPUSCULAR HGB CONC 34.1 g/dL (32.0-36.0); MEAN CORPUSCULAR VOLUME 94 fl (80-97); PLATELET COUNT 264 10^3/uL (150-450); RED BLOOD COUNT 4.38 10^6/uL (4.35-5.55); RED CELL DISTRIBUTION WIDTH 15.3 % (11.5-14.0); SEGMENTED NEUTROPHILS % (AUTO) 53.5 % (42-78); TOTAL CELLS COUNTED % (AUTO) 100 %; WHITE BLOOD COUNT 8.6 10^3/uL (4.0-10.5)
[2018-01-25 04:09] LABS: ANION GAP 8 (5-19); BLOOD UREA NITROGEN 11 mg/dL (7-20); CALCIUM 9.1 mg/dL (8.4-10.2); CARBON DIOXIDE 37 mmol/L (22-30); CHLORIDE 104 mmol/L (98-107); GLUCOSE 91 mg/dL (75-110); POTASSIUM 4.2 mmol/L (3.6-5.0); SODIUM 148.5 mmol/L (137-145)
--- NOTE | 2018-01-25 04:17 | RADIOLOGY REPORT (SQ) ---
EXAM DESCRIPTION: CT HEAD WITHOUT CLINICAL HISTORY: 42 years Male, dystonia vs. sz TECHNIQUE: No contrast. Coronal and sagittal reformat with partial [id number]. This exam was performed according to our departmental dose-optimization program, which includes automated exposure control, adjustment of the mA and/or kV according to patient size and/or use of iterative reconstruction technique. FINDINGS: No hemorrhage or infarct. No mass, mass effect, or midline shift. 2.4 cm left maxillary retention cyst-mucocele. 0.9 cm right maxillary retention cyst-mucocele. Small ethmoid mucosal thickening. Brain and extra-axial structures appear otherwise intact. IMPRESSION: No acute findings.
[2018-01-25] MEDS ORDERED: NORMAL SALINE 1000 ML 1,000 ML IV ONE (04:19)
--- NOTE | 2018-01-25 06:59 | EKG REPORT ---
SEVERITY:- ABNORMAL ECG - SINUS RHYTHM BORDERLINE RIGHT AXIS DEVIATION, OLD LATERAL WALL ME CONSIDER ANTEROSEPTAL INFARCT : Confirmed by: Esteban Drake MD 25-Jan-2018 06:59:03
== END 2018-01-25 04:30 | disposition home or self-care (01) ==
LOC: ER 03:23
DX: G24.9 Dystonia, unspecified (principal); R56.9 Unspecified convulsions; Z86.718 Personal history of other venous thrombosis and embolism; Z79.01 Long term (current) use of anticoagulants; F17.200 Nicotine dependence, unspecified, uncomplicated; I10 Essential (primary) hypertension; J45.909 Unspecified asthma, uncomplicated
CPT/HCPCS: 36415; 70450; 80048; 85025; 93005; 93010; 99285

== ENCOUNTER → 2018-04-08 | Outpatient (CLI) | payer MEDICAID ==
[~2018-04-08] MED LIST: REGADENOSON INJ 0.4 MG/5 ML DISP.SYRIN IV ONE
--- NOTE | 2018-04-08 12:31 | DRAGON STRESS TEST REPORT ---
INTRAVENOUS LEXISCAN CARDIOLITE STRESS TEST USING SINGLE PHOTON EMMISION COMPUTERIZED TOMOGRAPHIC. DATE OF PROCEDURE: April 08, 2018, INDICATION : Chest pain CARDIAC RISK FACTORS: Hypertension, tobacco abuse RESTING EKG: Sinus rhythm, nonprogression of R-wave V1 to V3 STRESS EKG: No significant ST segment changes noted with LexiScan bolus REASON FOR TERMINATION: Protocol. PROCEDURE REPORT: Baseline heart rate 72 beats per minute with blood pressure of 148/98. Patient had no significant complaints. Patient was bolused with Lexiscan 0.4 mg intravenously followed by saline bolus. Heart rate at 2 minutes post bolus 103 with a blood pressure of 156/98. 3 minutes post bolus heart rate 102 with blood pressure of 148/99. No significant EKG changes were noted. Patient had no significant complaints during the procedure or postprocedure. CONCLUSIONS: Normal EKG and hemodynamic response to IV LexiScan. NUCLEAR DATA: At rest the patient was given 10.2 millicuries of technetium 99 sestamibi injected intravenously. As per protocol rest gated SPECT images were obtained. On day of stress test, the patient was given intravenous LexiScan at a dose of 0.4 mg in 5 mL intravenously, followed by flush with normal saline. Subsequently the stress dose of 32.1 millicuries of technetium 99 sestamibi was injected intravenously. As per protocol stress gated images were obtained. NUCLEAR INTERPRETATION: Both raw and processed data were used for interpretation. Visual, qualitative, computer-generated quantitative data was used. There was good myocardial uptake of technetium compound. Motion artifact and soft tissue attenuations were noted. Increased visceral uptake was noted. No definitive areas of transient perfusion defect noted, No definitive areas of fixed perfusion defect or scars noted. Mild decreased uptake noted in the interventricular septum area in the stress imaging but possibly related to RV cavity overlap. SDS was only 3 therefore felt not to be significant. EKG gated imaging showed LV EF at 53, rest and stress gated EF similar visually. T. I D. ratio was 1.18. Lung heart ratio noted to be within normal limits 0.31. No significant extracardiac and abnormal radiotracer activities were noted. RV free wall uptake was noted to be borderline increased. IMPRESSION: Also refer to comments under nuclear interpretation. Also test results needs to be interpreted in the context of pretest probability. 1. No definitive areas of transient perfusion defect noted. 2. There is no definitive scintigraphic evidence of myocardial infarction/scar. 3. EKG gated imaging shows left ventricular ejection fraction of approx. 53 %. 4. Clinical correlation requested as occasionally single vessel disease or balanced ischemia could be missed. In approximately 10% of the cases Lexiscan may not cause adequate vasodilatory stress. RECOMMENDATIONS: Aggressive risk factor modification and medical management. Further evaluation may be needed if continued symptoms or other high risk indicators are noted on clinical evaluation. Close cardiology follow-up is also recommended. Clinical correlation with echocardiogram derived ejection fraction. Inability to exercise by itself can lead to increased cardiovascular event risks. Consider cardiology consultation and or follow-up if clinically indicated. I am available for cardiology evaluation and consultation if requested by the primary health organisation manager, unless patient already has a manager disaster recovery. TRISTON
--- NOTE | 2018-04-08 15:01 | RADIOLOGY REPORT (SQ) ---
EXAM DESCRIPTION: CAROTID DOPPLER COMPLETED DATE/TIME: 04/08/2018 1:46 pm REASON FOR STUDY: CAROTID CALCIFICATION R07.9 CHEST PAIN, UNSPECIFIED R06.00 DYSPNEA, UNSPECIFIED COMPARISON: None. TECHNIQUE: Grayscale ultrasound, Doppler velocity and spectra, and color Doppler images acquired of the extra-cranial carotid and vertebral arteries. Images stored on PACS. LIMITATIONS: None. FINDINGS: RIGHT CAROTID CCA Velocities: Within normal limits. ICA Velocities Peak systolic 1.33 m/s. End diastolic 0.78 m/s. Proximal ICA/CCA peak systolic ratio 1.76. There are increased flow velocities in the right internal carotid artery consistent with a 50 to 69% stenosis. The CC ratio on the right would suggest a lesser stenosis. LEFT CAROTID CCA Velocities: Within normal limits. ICA Velocities Peak systolic 1.15 m/s. End diastolic 0.64 m/s. Proximal ICA/CCA peak systolic ratio 1.71. Spectra normal. No significant plaque. VERTEBRAL ARTERIES: Antegrade flow. Normal waveforms. SUBCLAVIAN ARTERIES: No finding. OTHER: No other significant finding. IMPRESSION: Flow velocities in the right internal carotid artery would suggest a 50 to 69% stenosis as noted above. No other hemodynamically significant stenoses are identified COMMENT: Quality ID #[id number]: Velocity criteria are extrapolated from the diameter data as defined by t he Society of Radiologists in Ultrasound Consensus Conference. Radiology 2003: 229; 340-346. TECHNICAL DOCUMENTATION: JOB ID: [id number] [employer]- All Rights Reserved Reading location - IP/workstation name: [email or web address]
--- NOTE | 2018-04-08 20:51 | XCELERA REPORT ---
[address] [address] Transthoracic Echocardiogram Report Name: ANTONIA HUNTER III Age: 42 yrs Gender: Male : 1975 Patient Status: Outpatient Patient Location: RAD Study Date: 04/08/2018 10:29 AM Height: 71 in Weight: 150 lb BSA: 1.9 m2 Procedure: A complete two-dimensional transthoracic echocardiogram was performed (2D, M-mode, spectral and color flow Doppler). The study was technically adequate with some images being suboptimal in quality. Reason For Study: CP, DYSPNEA, HTN Ordering Physician: JOO LLAMAS Performed By: Radhames Tariq Interpretation Summary The left ventricular ejection fraction is normal. There is normal left ventricular wall thickness. The left ventricle is grossly normal size. Doppler measurements suggest impaired left ventricular relaxation, which is associated with grade I/IV or mild diastolic dysfunction Wall motion cannot be accurately commented on, but no definite regional wall motion abnormalities noted. The right ventricle is grossly normal size. The right ventricular systolic function is normal. The right ventricle appears to be hypertrophied The right atrium is normal. The left atrial size is normal. There is no mitral regurgitation noted. There is no mitral valve stenosis. No aortic regurgitation is present. There is no aortic valve stenosis There is no tricuspid stenosis. No tricuspid regurgitation. The aortic root is not well visualized but is probably normal size. The inferior vena cava appeared normal and decreased > 50% with respiration (RAP 5-10 mmHg) There is no pericardial effusion. MMode/2D Measurements & Calculations RVDd: 2.0 cm LVIDd: 5.4 cm FS: 39.9 % Ao root diam: 3.3 cm IVSd: 0.74 cm LVIDs: 3.3 cm EDV(Teich): 143.5 ml LVPWd: 0.73 cmESV(Teich): 43.0 ml Ao root area: 8.5 cm2 EF(Teich): 70.0 % LA dimension: 3.8 cm LVOT diam: 2.1 cm LVOT area: 3.6 cm2 Doppler Measurements & Calculations MV E max jm: MV P1/2t max jm: Ao V2 max: LV V1 max P.5 cm/sec 105.0 cm/sec 126.4 cm/sec 4.6 mmHg MV A max jm: MV P1/2t: 57.4 msec Ao max PG: LV V1 max: 81.8 cm/sec MVA(P1/2t): 3.8 cm2 6.4 mmHg 107.0 cm/sec MV E/A: 0.95 MV dec slope: DIEGO(V,D): 3.1 cm2 535.8 cm/sec2 MV dec time: 0.17 sec PA V2 max: 90.3 cm/sec PA max P.3 mmHg Left Ventricle The left ventricle is grossly normal size. There is normal left ventricular wall thickness. The left ventricular ejection fraction is normal. Doppler measurements suggest impaired left ventricular relaxation, which is associated with grade I/IV or mild diastolic dysfunction. Wall motion cannot be accurately commented on, but no definite regional wall motion abnormalities noted. Right Ventricle The right ventricle is grossly normal size. The right ventricle appears to be hypertrophied. The right ventricular systolic function is normal. Atria The right atrium is normal. The left atrial size is normal. Interarterial septum not well visualized and not well dopplered. Cannot comment on ASD/PFO presence. Mitral Valve The mitral valve is grossly normal. There is no mitral valve stenosis. There is no mitral regurgitation noted. Aortic Valve The aortic valve is not well visualized secondary to technical limitations. The aortic valve opens well. There is no aortic valve stenosis. No aortic regurgitation is present. Tricuspid Valve The tricuspid valve is not well visualized, but is grossly normal. There is no tricuspid stenosis. No tricuspid regurgitation. Pulmonic Valve The pulmonic valve is not well visualized. Great Vessels The aortic root is not well visualized but is probably normal size. The inferior vena cava appeared normal and decreased > 50% with respiration (RAP 5-10 mmHg). Effusions There is no pericardial effusion. : JOO LLAMAS > [place]
== END ==
LOC: RAD 07:23
PROVIDERS: ATTEND Internal Medicine Cardiovascular Disease
DX: I10 Essential (primary) hypertension (principal); R07.9 Chest pain, unspecified; R06.00 Dyspnea, unspecified
CPT/HCPCS: 93306; 93017; 93880; 78452; A9500; J2785

== ENCOUNTER → 2018-06-16 | Outpatient (CLI) | payer MEDICAID ==
--- NOTE | 2018-06-16 15:22 | RADIOLOGY REPORT (SQ) ---
EXAM DESCRIPTION: CHEST PA/LATERAL COMPLETED DATE/TIME: 06/16/2018 3:14 pm REASON FOR STUDY: COUGH COMPARISON: Two-view chest 11/26/2017 EXAM PARAMETERS: NUMBER OF VIEWS: two views TECHNIQUE: Digital Frontal and Lateral radiographic views of the chest acquired. RADIATION DOSE: NA LIMITATIONS: none FINDINGS: LUNGS AND PLEURA: No opacities, masses or pneumothorax. No pleural effusion. MEDIASTINUM AND HILAR STRUCTURES: No masses or contour abnormalities. HEART AND VASCULAR STRUCTURES: Heart normal size. No evidence for failure. BONES: No acute findings. HARDWARE: None in the chest. OTHER: No other significant finding. IMPRESSION: NO SIGNIFICANT RADIOGRAPHIC FINDING IN THE CHEST. TECHNICAL DOCUMENTATION: JOB ID: [id number] [employer]- All Rights Reserved Reading location - IP/workstation name: [email or web address]
== END ==
LOC: OD 14:45
PROVIDERS: ATTEND Physician Assistant
DX: R05 Cough (principal)
CPT/HCPCS: 71046; 87070; 87205

== ENCOUNTER → 2018-07-30 | Outpatient (CLI) | payer MEDICAID ==
--- NOTE | 2018-07-30 08:56 | RADIOLOGY REPORT (SQ) ---
EXAM DESCRIPTION: CT CHEST WITH COMPLETED DATE/TIME: 07/30/2018 8:35 am REASON FOR STUDY: MEDIASTINAL ADENOPATHY R59.0 LOCALIZED ENLARGED LYMPH NODES COMPARISON: CT angio chest 11/09/2017 TECHNIQUE: CT scan of the chest performed using helical scanning technique with dynamic intravenous contrast injection. Images reviewed with lung, soft tissue and bone windows. Reconstructed coronal and sagittal MPR and MIP images reviewed. All images stored on PACS. All CT scanners at this facility use dose modulation, iterative reconstruction, and/or weight based d osing when appropriate to reduce radiation dose to as low as reasonably achievable (ALARA). [facility]: Dose Right [facility]: CareDose [facility]: Dose Right [facility]: Teradose 4D [facility]: [employer] CONTRAST TYPE AND DOSE: contrast/concentration: Isovue 350.00 mg/ml; Total Contrast Delivered: 80.0 ml; Total Saline Delivered: 55.0 ml RENAL FUNCTION: Creatinine 0.6 RADIATION DOSE: CT Rad equipment meets quality standard of care and radiation dose reduction techniq ues were employed. CTDIvol: 5.1 mGy. DLP: 219 mGy-cm. . LIMITATIONS: None. FINDINGS: LUNGS AND PLEURA: No worrisome pulmonary nodules. No acute infiltrates. No pleural effus ion. Less than 4 mm left apical postinflammatory nodule axial image 31 of doubtful clinical signific ance. Minimal bandlike atelectasis or scarring in the medial aspect right middle lobe and in the rig ht posterior costophrenic sulcus. HILAR AND MEDIASTINAL STRUCTURES: Mediastinal lymph nodes are identified which are not pathologically enlarged. 6 mm short axis prevascular lymph node axial image 20. 7 mm short axis precarinal lymph node axial image 30. 7 mm right hilar lymph node image 32. 6 mm lymph node left hilum axial image 3 2 HEART AND VASCULAR STRUCTURES: No aneurysm or dissection. No central pulmonary emboli. No pericardi al effusion. Main pulmonary artery is mildly enlarged, stable HARDWARE: None in the chest. UPPER ABDOMEN: No significant findings. Limited exam. THYROID AND OTHER SOFT TISSUES: No masses. No adenopathy. BONES: No significant finding. OTHER: No other significant finding. IMPRESSION: No worrisome mediastinal adenopathy. TECHNICAL DOCUMENTATION: JOB ID: [id number] Quality ID # [id number]: Final reports with documentation of one or more dose reduction techniques (e.g., Au tomated exposure control, adjustment of the mA and/or kV according to patient size, use of iterative reconstruction technique) 2010 [employer]- All Rights Reserved Reading location - IP/workstation name: [email or web address]
== END ==
LOC: RAD 08:11
PROVIDERS: ATTEND Physician Assistant
DX: R59.0 Localized enlarged lymph nodes (principal)
CPT/HCPCS: 71260; 82565

== ENCOUNTER 2018-11-19 23:17 | Emergency (ER) | payer MEDICAID ==
[2018-11-19 23:49] VITALS: BP 128/87
== END 2018-11-20 02:07 | disposition left against medical advice (07) ==
LOC: ER 23:17
DX: Z53.21 Procedure and treatment not carried out due to patient leaving prior to being seen by health care provider (principal)

== ENCOUNTER → 2019-01-20 | Outpatient (CLI) | payer MEDICAID ==
--- NOTE | 2019-01-20 08:41 | RADIOLOGY REPORT (SQ) ---
EXAM DESCRIPTION: ELBOW LEFT OVER 2 VIEWS COMPLETED DATE/TIME: 01/20/2019 8:29 am REASON FOR STUDY: PAIN IN LEFT ELBOW (M25.522) M25.522 PAIN IN LEFT ELBOW COMPARISON: None. NUMBER OF VIEWS: Four views. TECHNIQUE: AP, lateral, and both oblique radiographic images acquired of the left elbow. LIMITATIONS: None. FINDINGS: MINERALIZATION: Normal. BONES: No acute fracture or dislocation. No worrisome bone lesions. JOINT: No effusion. SOFT TISSUES: No soft tissue swelling. No foreign body. OTHER: No other significant finding. IMPRESSION: 1. No acute osseous findings. If symptoms are persistent, additional imaging may be he lpful to exclude an underlying occult fracture. TECHNICAL DOCUMENTATION: JOB ID: [id number] [employer]- All Rights Reserved Reading location - IP/workstation name: [email or web address]
== END ==
LOC: RAD 08:03
PROVIDERS: ATTEND Physician Assistant
DX: M25.522 Pain in left elbow (principal)

== ENCOUNTER 2019-09-20 17:42 | Inpatient (IN) | payer MEDICAID ==
[2019-09-20] MEDS ORDERED: IPRATROPIUM/ALBUTEROL 0.5-2.5 MG/3 ML AMPUL NEB ONE (17:56)
[2019-09-20] MEDS ORDERED: METHYLPREDNISOLONE INJ 125 MG/2 ML SDV IV ONE (17:59)
--- NOTE | 2019-09-20 17:59 | ER Document Report ---
ED Medical Screen (RME) - General Chief Complaint: Breathing Difficulty Stated Complaint: DIFFICULTY BREATHING Time Seen by Provider: 09/20/19 17:52 Notes: 44-year-old male with history of COPD, pulmonary hypertension, heart failure with unknown ejection fraction, pneumonia with "collapsed lung" requiring chest tubes presents to the emergency department acutely short of breath. Oxygen saturations 77% on 2 L of oxygen in triage. Tachycardic at 120 bpm. Patient states that symptoms started over the last several days. Exam: Inspiratory and expiratory wheezes in all lr, diminished air exchange but breath sounds heard in all lr, tachycardia with regular rhythm, S1-S2 heard no murmur. I have greeted and performed a rapid initial assessment of this patient. A comprehensive ED assessment and evaluation of the patient, analysis of test results and completion of medical decision making process will be conducted by an additional ED providers. TRAVEL OUTSIDE OF THE [place] IN LAST 30 DAYS: No - Related Data Allergies/Adverse Reactions: disulfiram [From Antabuse] Allergy (Verified 09/20/19 17:56) imipramine [Imipramine] Allergy (Verified 09/20/19 17:56) tramadol Allergy (Verified 09/20/19 17:56) Past Medical History - Past Medical History Cardiac Medical History: Reports: Hx DVT, Hx Hypertension, Hx Pulmonary Embolism Denies: Hx Coronary Artery Disease, Hx Heart Attack Pulmonary Medical History: Reports: Hx Asthma, Hx Bronchitis, Hx COPD Denies: Hx Pneumonia Neurological Medical History: Reports: Hx Cerebrovascular Accident. Denies: Hx Seizures Renal/ Medical History: Denies: Hx Peritoneal Dialysis Musculoskeltal Medical History: Denies Hx Arthritis Psychiatric Medical History: Reports: Hx Bipolar Disorder, Hx Depression Past Surgical History: Reports: Hx Abdominal Surgery - hernia x 3, Hx Orthopedic Surgery - left knee - Immunizations Hx Diphtheria, Pertussis, Tetanus Vaccination: No
[2019-09-20] MEDS: MAGNESIUM SULFATE/D5W 1 GM/100 ML RTUPB IV SCH ×2 (18:21→20:19)
--- NOTE | 2019-09-20 18:34 | RADIOLOGY REPORT (SQ) ---
EXAM DESCRIPTION: CHEST SINGLE VIEW COMPLETED DATE/TIME: 09/20/2019 6:11 pm REASON FOR STUDY: SOB COMPARISON: 11/26/2017 EXAM PARAMETERS: NUMBER OF VIEWS: One view. TECHNIQUE: Single frontal radiographic view of the chest acquired. RADIATION DOSE: NA LIMITATIONS: None. FINDINGS: LUNGS AND PLEURA: Hyperexpansion of the lungs. Cannot exclude a minimal right pleural eff usion. No infiltrate or mass. MEDIASTINUM AND HILAR STRUCTURES: No masses. Contour normal. HEART AND VASCULAR STRUCTURES: Heart normal in size. Normal vasculature. BONES: No acute findings. HARDWARE: None in the chest. OTHER: No other significant finding. IMPRESSION: Chronic lung changes. Cannot exclude a minimal right pleural effusion. TECHNICAL DOCUMENTATION: JOB ID: [id number] [employer]- All Rights Reserved Reading location - IP/workstation name: [email or web address]
--- NOTE | 2019-09-20 18:47 | ER Document Report ---
ED General - General Chief Complaint: Breathing Difficulty Stated Complaint: DIFFICULTY BREATHING Time Seen by Provider: 09/20/19 17:52 Primary Care Provider: KIT PARSON MD [Primary Care Provider] - Follow up as needed TRAVEL OUTSIDE OF THE [place] IN LAST 30 DAYS: No - HPI Notes: Patient is a 44-year-old male with an extensive medical history, including oxygen dependence, COPD, tobacco abuse, heart failure, who presents emergency department for evaluation of cough and shortness of breath. He states that he is had a respiratory illness over the last month or so. He states he started to feel better, then about 10 days ago he began declining again. He denies any pain. He has had an intermittently productive cough. He had a few episodes of emesis over the last several days. None of this was posttussive. He has been using his oxygen treatments at home without any significant relief. - Related Data Allergies/Adverse Reactions: disulfiram [From Antabuse] Allergy (Verified 09/20/19 17:56) imipramine [Imipramine] Allergy (Verified 09/20/19 17:56) tramadol Allergy (Verified 09/20/19 17:56) Past Medical History - General Information source: Patient, Relative - Social History Smoking Status: Current Every Day Smoker Chew tobacco use (# tins/day): No Frequency of alcohol use: None Drug Abuse: None Family History: COPD, Hypertension Patient has suicidal ideation: No Patient has homicidal ideation: No - Past Medical History Cardiac Medical History: Reports: Hx Congestive Heart Failure, Hx DVT, Hx Hypertension, Hx Pulmonary Embolism Denies: Hx Coronary Artery Disease, Hx Heart Attack Pulmonary Medical History: Reports: Hx Asthma, Hx Bronchitis, Hx COPD Denies: Hx Pneumonia Neurological Medical History: Reports: Hx Cerebrovascular Accident. Denies: Hx Seizures Renal/ Medical History: Denies: Hx Peritoneal Dialysis Musculoskeletal Medical History: Denies Hx Arthritis Psychiatric Medical History: Reports: Hx Bipolar Disorder, Hx Depression Past Surgical History: Reports: Hx Abdominal Surgery - hernia x 3, Hx Orthopedic Surgery - left knee - Immunizations Hx Diphtheria, Pertussis, Tetanus Vaccination: No Review of Systems - Review of Systems Constitutional: See HPI EENT: No symptoms reported Cardiovascular: No symptoms reported Respiratory: See HPI Gastrointestinal: See HPI Genitourinary: No symptoms reported Musculoskeletal: No symptoms reported Skin: No symptoms reported Neurological/Psychological: No symptoms reported Physical Exam - Vital signs Vitals: Temp Pulse Resp BP Pulse Ox 98.9 F 106 H 30 H 143/89 H 81 L 09/20/19 17:58 09/20/19 17:58 09/20/19 17:58 09/20/19 17:58 09/20/19 17:58 - Notes Notes: This is a 44-year-old male who appears much older than his stated age, in mild distress. He is currently on the nebulizer, with a mildly increased respiratory rate, and occasional retractions. Vital signs reviewed, please refer to chart. Head is normocephalic, atraumatic. Pupils equal round, reactive to light. Neck is supple without meningismus. Heart is regular rate and rhythm. Lungs reveal diminished breath sounds with expiratory wheezes throughout. Abdomen is soft, nontender, normoactive bowel sounds throughout. Extremities without cyanosis, clubbing. Posterior calves are nontender. Peripheral pulses are equal. Skin is warm and dry. Patient is awake, alert, neurological exam is nonfocal. Course - Re-evaluation Re-evalutation: 09/20/19 18:46 Patient is a 44-year-old gentleman with an extensive history, including oxygen dependence, who presented to the emergency department for evaluation and was found to have an SPO2 in the 70s on his normal 2 L. He was brought back immediately, given steroids, magnesium, breathing treatment. He is placed on a tack maker. Imaging and laboratory investigations were ordered as well. Patient denies any pain, is able to converse with examiner without significant d yspnea. We will continue to monitor. 09/20/19 19:19 Notified by nursing that patient was beginning to decompensate. I wanted to evaluate the patient. His respiratory rate is increased. He is diaphoretic. He is more hypoxic than when he came. I went back in to evaluate the patient. He has anterior crackles. BiPAP and repeat stat chest x-ray ordered. His blood pressure is in the 140s at this time. Patient denies any chest pain. I will continue to monitor. 09/20/19 20:54 Patient is feeling significantly improved. His white count is markedly elevated. I did order a bolus of IV fluids at 30 cc/kg, once I found that the patient's proBNP was not markedly elevated. His chest x-ray shows findings concerning for pneumonia. There was also concern for a possible hydropneumothorax, but at this point certainly does not warrant any intervention. The patient is feeling markedly improved on BiPAP. I spoke with Dr. Conn in regards to this patient. We discussed fluids, his normal lac ni, his elevated white count, his chest x-ray findings, blood gas findings, and BiPAP settings. He was concerned about the amount of FiO2 this patient was requiring. Repeat ABG will be performed, admission is pending at this time. 09/20/19 23:22 Repeat ABG showed improved pH but unfortunately increased PCO2. Patient clinically, however, looks more markedly improved. He denies any pain. He s tates his breathing is nearly back to baseline. He does have a high oxygen requirement, but is no longer hypoxemic. He is no longer diaphoretic. BiPAP settings will remain stable. I spoke with Malcolm Clement, he will accept the patient on behalf of Dr. Abdul. - Vital Signs Vital signs: Temp Pulse Resp BP Pulse Ox 98.7 F 106 H 17 123/77 97 09/20/19 20:00 09/20/19 17:58 09/20/19 22:01 09/20/19 22:00 09/20/19 22:01 - Laboratory Result Diagrams: 09/20/19 18:12 09/20/19 18:12 Laboratory results interpreted by me: 09/20/19 09/20/19 09/20/19 18:12 18:12 18:12 WBC 28.8 H RDW 14.1 H Seg Neuts % (Manual) 84 H Lymphocytes % (Manual) 5 L Abs Neuts (Manual) 25.6 H Carbonic Acid ABG pH ABG pCO2 ABG pO2 ABG HCO3 ABG Total CO2 ABG O2 Saturation Sodium 134.2 L Chloride 85 L Carbon Dioxide 39 H BUN 6 L Creatinine 0.39 L Glucose 114 H Alkaline Phosphatase 137 H NT-Pro-B Natriuret Pep 450 H 09/20/19 09/20/19 18:55 21:10 WBC RDW Seg Neuts % (Manual) Lymphocytes % (Manual) Abs Neuts (Manual) Carbonic Acid 2.38 H 2.45 H ABG pH 7.31 L 7.34 L ABG pCO2 79.0 H* 81.5 H* ABG pO2 65.3 L ABG HCO3 38.5 H 43.4 H ABG Total CO2 41.0 H 45.9 H ABG O2 Saturation 89.9 L Sodium Chloride Carbon Dioxide BUN Creatinine Glucose Alkaline Phosphatase NT-Pro-B Natriuret Pep - Diagnostic Test Radiology reviewed: Image reviewed, Reports reviewed Radiology results interpreted by me: 09/20/19 23:23 Chest X-Ray 09/20/19 17:56 IMPRESSION: Chronic lung changes. Cannot exclude a minimal right pleural effusion. Chest X-Ray 09/20/19 19:19 IMPRESSION: Chronic lung changes. Cannot exclude a minimal right lower lobe pneumonia. There appears to be a minimal right pleural effusion. On this study, however there is the suggestion of an air-fluid level, raises the possibility of a hydropneumothorax. - EKG Interpretation by Me Additional EKG results interpreted by me: 09/20/19 23:23 Sinus tachycardia with a rate of 102 bpm. Borderline right axis deviation. Nonspecific ST changes, but no acute changes concerning for ischemia or infarction. This is unchanged compared to prior study of January 2018. Critical Care Note - Critical Care Note Total time excluding time spent on procedures (mins): 40 Discharge - Discharge Clinical Impression: Chronic respiratory failure with hypoxia and hypercapnia, Pneumonia, Sepsis, Acute on chronic respiratory failure with hypoxemia Condition: Stable Disposition: ADMITTED INPATIENT Admitting Provider: Dr. Abdul Unit Admitted: ICU Referrals: KIT PARSON MD [Primary Care Provider] - Follow up as needed
[2019-09-20 18:53] LABS: HEMATOCRIT 44.9 % (37.9-51.0); HEMOGLOBIN 15.3 g/dL (13.5-17.0); MEAN CORPUSCULAR HEMOGLOBIN 32.6 pg (27.0-33.4); MEAN CORPUSCULAR VOLUME 96 fl (80-97); PLATELET COUNT 269 10^3/uL (150-450); RED BLOOD COUNT 4.68 10^6/uL (4.35-5.55); RED CELL DISTRIBUTION WIDTH 14.1 % (11.5-14.0); WHITE BLOOD COUNT 28.8 10^3/uL (4.0-10.5)
[2019-09-20 19:00] LABS: ALBUMIN 4.2 g/dL (3.5-5.0); ALKALINE PHOSPHATASE 137 U/L (38-126); ASPARTATE AMINO TRANSFERASE 24 U/L (17-59); BILIRUBIN,DIRECT 0.1 mg/dL (0.0-0.4); BILIRUBIN,TOTAL 0.8 mg/dL (0.2-1.3); BLOOD UREA NITROGEN 6 mg/dL (7-20); CALCIUM 9.6 mg/dL (8.4-10.2); CHLORIDE 85 mmol/L (98-107); GLUCOSE 114 mg/dL (75-110); POTASSIUM 4.7 mmol/L (3.6-5.0); TOTAL PROTEIN 7.2 g/dL (6.3-8.2)
[2019-09-20 19:07] LABS: ANION GAP 10 (5-19); CARBON DIOXIDE 39 mmol/L (22-30)
[2019-09-20 19:09] LABS: NT PRO BNP 450 pg/mL (<125)
[2019-09-20 19:12] LABS: ABSOLUTE LYMPHOCYTES# (MANUAL) 2.3 10^3/uL (0.5-4.7); ABSOLUTE MONOCYTES # (MANUAL) 0.9 10^3/uL (0.1-1.4); BAND NEUTROPHILS % (MANUAL) 5 % (3-5); BASOPHILS % (MANUAL) 0 % (0-2); EOSINOPHILS % (MANUAL) 0 % (0-6); LYMPHOCYTES % (MANUAL) 5 % (13-45); MONOCYTES % (MANUAL) 3 % (3-13); SEGMENTED NEUTROPHILS % (MAN) 84 % (42-78); TOTAL CELLS COUNTED 100
[2019-09-20 19:13] LABS: ANISOCYTOSIS SLIGHT; PLATELET COMMENT ADEQUATE; SMUDGE CELLS PRESENT
[2019-09-20 19:25] LABS: ARTERIAL BLOOD BASE EXCESS 8.6 mmol/L; ARTERIAL BLOOD H2CO3 2.38 mmol/L (1.05-1.35); ARTERIAL BLOOD HCO3 38.5 mmol/L (20-24); ARTERIAL BLOOD O2 SATURATION 89.9 % (94-98); ARTERIAL BLOOD PH 7.31 (7.35-7.45); ARTERIAL BLOOD PO2 65.3 mmHg (80-100)
[2019-09-20 19:28] LABS: ARTERIAL BLOOD FIO2 12L
[2019-09-20 19:30] LABS: TROPONIN I < 0.012 ng/mL
--- NOTE | 2019-09-20 19:41 | RADIOLOGY REPORT (SQ) ---
EXAM DESCRIPTION: CHEST SINGLE VIEW COMPLETED DATE/TIME: 09/20/2019 7:27 pm REASON FOR STUDY: difficulty breathing COMPARISON: 09/20/2019 EXAM PARAMETERS: NUMBER OF VIEWS: One view. TECHNIQUE: Single frontal radiographic view of the chest acquired. RADIATION DOSE: NA LIMITATIONS: None. FINDINGS: LUNGS AND PLEURA: Hyperexpansion of the lungs. Slightly increased opacification the media l right base. Once again there is suggestion of minimal right pleural effusion. However, on e AP images it almost appears that there is an air-fluid level in the right base. MEDIASTINUM AND HILAR STRUCTURES: No masses. Contour normal. HEART AND VASCULAR STRUCTURES: Heart normal in size. Normal vasculature. BONES: No acute findings. HARDWARE: None in the chest. OTHER: No other significant finding. IMPRESSION: Chronic lung changes. Cannot exclude a minimal right lower lobe pneumonia. There appea rs to be a minimal right pleural effusion. On this study, however there is the suggestion of an air- fluid level, raises the possibility of a hydropneumothorax. TECHNICAL DOCUMENTATION: JOB ID: [id number] [employer]- All Rights Reserved Reading location - IP/workstation name: [email or web address]
[2019-09-20] MEDS ORDERED: LEVOFLOXACIN 750 MG/D5W RTU 750 MG/150 ML RTUPB IV ONE (19:43)
[2019-09-20 19:50] LABS: A TYPE INFLUENZA AG NEGATIVE (NEGATIVE); B INFLUENZA AG NEGATIVE (NEGATIVE)
[2019-09-20] MEDS ORDERED: NORMAL SALINE 1000 ML 1,000 ML IV ONE (20:53)
[2019-09-20 21:34] LABS: ARTERIAL BLOOD BASE EXCESS 13.4 mmol/L; ARTERIAL BLOOD H2CO3 2.45 mmol/L (1.05-1.35); ARTERIAL BLOOD HCO3 43.4 mmol/L (20-24); ARTERIAL BLOOD O2 SATURATION 95.1 % (94-98); ARTERIAL BLOOD PH 7.34 (7.35-7.45); ARTERIAL BLOOD TOTAL CO2 45.9 mmol/L (23-27)
[2019-09-20 21:37] LABS: ARTERIAL BLOOD FIO2 60%
[2019-09-20 21:39] LABS: ARTERIAL BLOOD PCO2 81.5 mmHg (35-45)
[2019-09-20] MEDS: NORMAL SALINE 1000 ML 1,000 ML IV PRN ×2 (22:11→23:08)
--- NOTE | 2019-09-21 00:36 | EKG REPORT ---
SEVERITY:- ABNORMAL ECG - SINUS TACHYCARDIA BORDERLINE RIGHT AXIS DEVIATION CONSIDER ANTEROSEPTAL INFARCT : Confirmed by: Danyelle Forte MD 21-Sep-2019 00:34:59
[2019-09-21] MEDS ORDERED: GLUCAGON,HUMAN RECOMB 1 MG INJ SUBCUT PRN (04:37)
[2019-09-21] MEDS ORDERED: GUAIFENESIN SYRP 200 MG/10 ML UDC PO PRN (04:37)
[2019-09-21] MEDS ORDERED: DEXTROSE 50%-WATER 25 GM/50 ML DISP.SYRIN IV PRN (04:37)
[2019-09-21] MEDS ORDERED: DEXTROSE 40% GEL 15 GM TUBE PO PRN ×2 (04:37)
[2019-09-21] MEDS ORDERED: ACETAMINOPHEN 325 MG TABLET PO PRN (04:37)
--- NOTE | 2019-09-21 04:37 | CRITICAL CARE ADMISSION REPORT ---
HPI Date:: 09/21/19 Time:: 03:00 Reason for ICU Reason:: Hypoxemic and hypercarbic respiratory failure HPI: 44-year-old gentleman with an extensive cardiovascular and pulmonary medical history including PE, CHF, carotid stenosis, CVA, HTN and COPD. Patient states that he has had a respiratory illness over the past month with intermittent productive cough and a few episodes of emesis over the last several days. He presented to the emergency room overnight with worsening shortness of breath and hypoxemia (SPO2 in the 70s on 2 L nasal cannula.) He became diaphoretic with worsening tachypnea and shortness of breath. He was placed on BiPAP with significant improvement in symptoms. ABG showed significant hypercarbia which has been partially compensated. WBC is markedly elevated and proBNP was mildly elevated. CXR shows significantly hyper expanded lungs with possible right lower lobe infiltrates and possible effusions. Although clinically improving since first seen in the emergency room, patient has been admitted to the intensive care unit for close observation given his possible impending respiratory failure. History obtained from:: Patient - Diagnosis/Plan (2) Pneumonia Qualifiers: Pneumonia type: due to unspecified organism Laterality: right Lung location: middle lobe of lung Qualified Code(s): J18.9 - Pneumonia, unspecified organism Is this a current diagnosis for this admission?: Yes Plan: Continue Levaquin. Will broaden coverage if further signs of infection. Obtain/follow-up sputum and blood cultures. (3) COPD (chronic obstructive pulmonary disease) Qualifiers: COPD type: chronic bronchitis Chronic bronchitis type: unspecified Qualified Code(s): J42 - Unspecified chronic bronchitis Is this a current diagnosis for this admission?: Yes Plan: Begin DuoNeb every 4 hours. Continue Solu-Medrol. Obtain ABG in a.m. If improved, consider weaning off of BiPAP. Titrate FiO2 to maintain SPO2 between 90 to 95%. (4) Congestive heart failure Is this a current diagnosis for this admission?: Yes Plan: Continue to monitor blood pressure. No significant pulmonary effusions that are likely contributing to his hypoxemia. Nevertheless, we will be cautious with his fluid administration given his history. - . Plan Summary: Patient with significant hypoxemia in the probable setting of COPD and pneumonia. For his COPD exacerbation we will treat with antibiotics, steroids and short acting bronchodilators. When clinically stable, we can transition standing bronchodilators to long-acting LABA/LAMA and begin tapering steroids. Continue antibiotics. Due to his significant past medical history, I cannot rule out pulmonary embolism in this setting. We will therefore obtain a CT to rule out PE. proBNP only mild to moderately elevated, however given extensive cardiac history, we will remain cautious with fluid administration. Past Medical History Cardiac Medical History: Reports: Congestive Heart Failure, DVT, Hypertension, Pulmonary Embolism Denies: Coronary Artery Disease, Myocardial Infarction Cardiac History Note: Most recent Echocardiogram dated 04/08/2018 showed normal LVEF with impaired left ventricular relaxation associated with mild diastolic dysfunction. Cardiac stress test on 04/08/2018 shows no significant abnormalities. Current BMP is mild to moderately elevated. Pulmonary Medical History: Reports: Asthma, Bronchitis, Chronic Obstructive Pulmonary Disease (COPD) Denies: Pneumonia Pulmonary History Note: COPD: Significant smoking history of greater than 30 years. Patient continues to smoke. He states a diagnosis of COPD and asthma, however, I have not found any record of PFTs in the medical records. Upon discharge, patient would benefit from diagnostic evaluation. Supportive factors for COPD include severely flattened diaphragm, significant smoking, chemical exposure, and remote crack cocaine use. Neurological Medical History: Reports: Ischemic CVA Denies: Seizures Neurological History Note: Documented history of DVT, PE and CVA. Carotid stenosis with 50-69% occlusion in the right internal carotid artery. Musculoskeltal Medical History: Denies: Arthritis Psychiatric Medical History: Reports: Bipolar Disorder, Depression, Tobacco Dependency Hematology: Denies: Anemia Past Surgical History Past Surgical History: Reports: Orthopedic Surgery - left knee Social/Family History - Social History Smoking Status: Current Every Day Smoker Cigarettes Packs Per Day: 1 Number of Years Smokin Last Time Smoked: Current smoker Drugs: Cocaine, Heroin - Remote history Hx Prescription Drug Abuse: Yes - Home RX for oxycodone - Medication/Allergies Home Medications: Albuterol Sulfate [Proair HFA Inhalation Aerosol 8.5 gm MDI] 2 puff IN Q4HP PRN 11/19/17 Lisinopril [Prinivil 10 mg Tablet] 10 mg PO DAILY #30 tablet 11/22/17 Amox Tr/Potassium Clavulanate [Augmentin "500" Tablet] 1 tab PO BID 11/26/17 Metoprolol Tartrate [Lopressor 25 mg Tablet] 25 mg PO BID 11/26/17 Rivaroxaban [Xarelto 15 mg Tablet] 15 mg PO BID 11/26/17 Allergies/Adverse Reactions: disulfiram [From Antabuse] Allergy (Verified 09/20/19 17:56) imipramine [Imipramine] Allergy (Verified 09/20/19 17:56) tramadol Allergy (Verified 09/20/19 17:56) Review of Systems Constitutional: PRESENT: as per HPI, fatigue, weakness Eyes: ABSENT: visual disturbances Cardiovascular: PRESENT: dyspnea on exertion. ABSENT: chest pain, edema Respiratory: PRESENT: as per HPI, dyspnea Gastrointestinal: PRESENT: other - Multiple episodes of emesis over the past several days, however, none reported in ED. Musculoskeletal: PRESENT: as per HPI Integumentary: PRESENT: as per HPI Neurological: PRESENT: other - Patient states that he feels better than normal when first seen in ED.. ABSENT: focal weakness Physical Exam Vital Signs: Temp Pulse Resp BP Pulse Ox 98.7 F 106 H 21 H 106/66 96 09/20/19 20:00 09/20/19 17:58 09/21/19 02:01 09/21/19 02:00 09/21/19 02:01 Intake & Output 09/19/19 09/20/19 09/21/19 06:59 06:59 06:59 Intake Total 3186 Balance 3186 Weight 71 kg Weight/Height Weight 71 kg Height 6 ft General appearance: PRESENT: no acute distress, cooperative, thin Head exam: PRESENT: atraumatic Eye exam: PRESENT: PERRLA Ear exam: PRESENT: normal external ear exam. ABSENT: bleeding Mouth exam: PRESENT: neck supple - Unable to properly evaluate due to BIPap mask. Neck exam: PRESENT: full ROM. ABSENT: carotid bruit, JVD, tenderness, tracheal deviation Respiratory exam: PRESENT: prolonged expiratory phas, symmetrical, unlabored. ABSENT: accessory muscle use, tachypnea, wheezes - Right lower lobe breath sounds were diminished with rhonchi. Cardiovascular exam: PRESENT: RRR. ABSENT: diastolic murmur, rubs Pulses: PRESENT: normal radial pulses, normal dorsalis pedis pul, +2 pedal pulses bilateral GI/Abdominal exam: PRESENT: normal bowel sounds, soft. ABSENT: ascites, tenderness Rectal exam: PRESENT: deferred Extremities exam: PRESENT: full ROM. ABSENT: calf tenderness, joint swelling, pedal edema Musculoskeletal exam: PRESENT: full ROM, normal inspection. ABSENT: tenderness Neurological exam: PRESENT: alert, awake, oriented to time, oriented to situation, CN II-XII grossly intact Psychiatric exam: ABSENT: agitated, anxious, flat affect, manic Focused psych exam: PRESENT: other - Calm, appropriate affect. Skin exam: PRESENT: warm. ABSENT: rash Laboratory/Radiographs Laboratory Results: 09/20/19 18:12 09/20/19 18:12 09/20/19 09/20/19 09/20/19 18:12 18:12 18:55 WBC 28.8 H RBC 4.68 Hgb 15.3 Hct 44.9 MCV 96 MCH 32.6 MCHC 34.0 RDW 14.1 H Plt Count 269 Seg Neutrophils % Not Reportable Carbonic Acid HCO3/H2CO3 Ratio ABG pH ABG pCO2 ABG pO2 ABG HCO3 ABG O2 Saturation ABG Base Excess FiO2 Sodium 134.2 L Potassium 4.7 Chloride 85 L Carbon Dioxide 39 H Anion Gap 10 BUN 6 L Creatinine 0.39 L Est GFR ( Amer) > 60 Glucose 114 H Lactic Acid 1.0 Calcium 9.6 Total Bilirubin 0.8 AST 24 Alkaline Phosphatase 137 H Total Protein 7.2 Albumin 4.2 09/20/19 09/20/19 18:55 21:10 WBC RBC Hgb Hct MCV MCH MCHC RDW Plt Count Seg Neutrophils % Carbonic Acid 2.38 H 2.45 H HCO3/H2CO3 Ratio 16:1 17:1 ABG pH 7.31 L 7.34 L ABG pCO2 79.0 H* 81.5 H* ABG pO2 65.3 L 83.0 ABG HCO3 38.5 H 43.4 H ABG O2 Saturation 89.9 L 95.1 ABG Base Excess 8.6 13.4 FiO2 12L 60% Sodium Potassium Chloride Carbon Dioxide Anion Gap BUN Creatinine Est GFR ( Amer) Glucose Lactic Acid Calcium Total Bilirubin AST Alkaline Phosphatase Total Protein Albumin 09/20/19 18:12 Troponin I < 0.012 NT-Pro-B Natriuret Pep 450 H Impressions: Chest X-Ray 09/20/19 19:19 IMPRESSION: Chronic lung changes. Cannot exclude a minimal right lower lobe pn eumonia. There appears to be a minimal right pleural effusion. On this study, however there is the suggestion of an air-fluid level, raises the possibility of a hydropneumothorax. All labs, radiographs, diagnostic studies and EKGs were personally reviewed: Yes In addition, reports of radiographic and diagnostic studies were read: Yes Critical Time Critical Time (minutes): 75 -: The care of a critically ill patient is dynamic. This note represents a static moment in the admission process. orders and treatments may be given simultaneously and urgent, and time is not employee's representative of the treatment process. This patient requires Critical Care secondary to life threatening organ or limb dysfunction. Without the need for Critical Care services, the patient is at risk for increased mortality and morbidity.
[2019-09-21] MEDS ORDERED: PHARMACY COMMUNICATION ORDER MC NR (04:45)
[2019-09-21 06:06] LABS: HEMATOCRIT 40.4 % (37.9-51.0); HEMOGLOBIN 13.5 g/dL (13.5-17.0); MEAN CORPUSCULAR HEMOGLOBIN 32.4 pg (27.0-33.4); MEAN CORPUSCULAR HGB CONC 33.3 g/dL (32.0-36.0); MEAN CORPUSCULAR VOLUME 97 fl (80-97); PLATELET COUNT 278 10^3/uL (150-450); RED BLOOD COUNT 4.15 10^6/uL (4.35-5.55); RED CELL DISTRIBUTION WIDTH 14.6 % (11.5-14.0); WHITE BLOOD COUNT 23.7 10^3/uL (4.0-10.5)
[2019-09-21] MEDS: HEPARIN SOD (PORCINE) 5,000 UNIT/ML 1 ML VIAL SUBCUT SCH ×3 (06:11→21:12)
[2019-09-21 06:25] LABS: BLOOD UREA NITROGEN 8 mg/dL (7-20); CALCIUM 8.8 mg/dL (8.4-10.2); CHLORIDE 92 mmol/L (98-107); GLUCOSE 129 mg/dL (75-110)
[2019-09-21 06:45] LABS: ANION GAP 4 (5-19); CARBON DIOXIDE 38 mmol/L (22-30)
[2019-09-21] MEDS: ALBUTEROL SULFATE HFA (90 MCG/PUFF) 200 PUFF/8.5 GM MDI IH SCH ×5 (06:45→21:37)
--- NOTE | 2019-09-21 08:18 | Progress Note ---
Provider Note Provider Note: I personally saw and evaluated the patient after his admission done by LINDA Lamar. We discussed his presentation findings labs and history. Reviewed past medical records here within the institution. As noted in the H&P patient has had significant medical illnesses most of which center on his respiratory system. Chronic upper respiratory and sinus dysfunction culminating in the need for sinus surgery in the past. 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 Does see a corporate vp advertising & online, Dr. Porras, and was scheduled to see him in October. He has been exposed to various upper respiratory infections within the family. He has felt weak and rundown for the last few weeks. Normally he can work more than 5 hours a day but now 3 or less. Had a significant weight loss with almost 30 pounds in the last few months. He has had no hemoptysis or hematemesis. He says that the weight loss is secondary to swallowing and feeling that food is not going down well. He denies nor endorses any aspiration events. He does continue to smoke despite being on home oxygen On exam he is very thin with obvious bitemporal muscle wasting. He has significant dental caries. There are no audible bruits nor is there any adenopathy Heart has a regular rate and rhythm. No audible murmur or gallops Lungs have dry crackles but otherwise clear. There is increased AP to lateral diameter Abdomen is benign as is the neurological exam. No mottling or skin discoloration. Notably there is no clubbing Patient was seen at [facility] a year and a half ago for pneumonia had a difficult intubation after self extubating. He does not know of any history of alpha-1 antitrypsin the only family member who from lung disease was a long-term tobacco user who late in life. In review of his CT scans in 2018 he had a lung nodule which was listed as benign. You have chest x-ray on this admission shows significant flattening of diaphragms and enlarged lung lr. The right lower lobe has a mixed interstitial alveolar pattern that may be suggestive of a viral pneumonitis. Patient is scheduled for CT this morning. He has improved from his initial presentation and is now on nasal cannula. He is on home O2 as well. Plans for today: #1: Follow-up on CT scan 2.: Pulmonary consult 3.: Start azithromycin for anti-inflammatory and atypical pneumonia. 4.: Screen for inflammatory lung disease with ANCA and CT scan 5.: Speech and swallow eval to determine where the difficulty swallowing is occurring and follow-up on CT to evaluate possible neck structure dysfunction 6.: Patient may need EGD especially with his significant weight loss. He may need bronchoscopy as well. If there is swallowing dysfunction will have ENT evaluate the patient. Patient will remain in ICU until we can be assured that his respiratory status is stable. Total critical care time: 60 minutes
[2019-09-21 09:21] LABS: ARTERIAL BLOOD BASE EXCESS 12.3 mmol/L; ARTERIAL BLOOD FIO2 9L; ARTERIAL BLOOD H2CO3 2.01 mmol/L (1.05-1.35); ARTERIAL BLOOD HCO3 40.2 mmol/L (20-24); ARTERIAL BLOOD O2 SATURATION 91.5 % (94-98); ARTERIAL BLOOD PCO2 66.9 mmHg (35-45); ARTERIAL BLOOD PO2 63.8 mmHg (80-100); ARTERIAL BLOOD TOTAL CO2 42.3 mmol/L (23-27)
[2019-09-21] MEDS ORDERED: METHADONE HCL 1 MG/ML 30 ML BOTTLE PO SCH (10:00)
--- NOTE | 2019-09-21 10:02 | RADIOLOGY REPORT (SQ) ---
EXAM DESCRIPTION: CHEST SINGLE VIEW COMPLETED DATE/TIME: 09/21/2019 9:36 am REASON FOR STUDY: Shortness of breath COMPARISON: AP view of the chest from 09/20/2019. EXAM PARAMETERS: NUMBER OF VIEWS: One view. TECHNIQUE: Single frontal radiographic view of the chest acquired. RADIATION DOSE: NA LIMITATIONS: None. FINDINGS: LUNGS AND PLEURA: The right latter costophrenic sulcus is blunted. There is no consolidat ion or pneumothorax. MEDIASTINUM AND HILAR STRUCTURES: Stable mediastinal and hilar contours. HEART AND VASCULAR STRUCTURES: The cardiac silhouette and pulmonary vasculature are within normal cespedes its. BONES: No acute findings. HARDWARE: None in the chest. OTHER: No other finding. IMPRESSION: Trace right pleural effusion. TECHNICAL DOCUMENTATION: JOB ID: [id number] [employer]- All Rights Reserved Reading location - IP/workstation name: [email or web address]
[2019-09-21] MEDS: METHADONE HCL 10 MG TABLET PO SCH (10:36)
[2019-09-21] MEDS: AZITHROMYCIN 250 MG TABLET PO SCH (10:36)
[2019-09-21] MEDS: METHYLPREDNISOLONE INJ 40 MG/1 ML SDV IV SCH ×2 (10:36→21:13)
[2019-09-21] MEDS: GUAIFENESIN 600 MG TABLET.SA PO SCH ×2 (10:36→21:11)
--- NOTE | 2019-09-21 13:18 | RADIOLOGY REPORT (SQ) ---
EXAM DESCRIPTION: CTA CHEST COMPLETED DATE/TIME: 09/21/2019 12:38 pm REASON FOR STUDY: Possible PE COMPARISON: AP view of the chest from 09/21/2019 TECHNIQUE: CT scan of the chest performed using helical scanning technique with dynamic intravenous contrast injection. Images reviewed with lung, soft tissue and bone windows. Reconstructed coronal and sagittal MPR images reviewed. Additional 3 dimensional post-processing performed to develop Maximal Intensity Projection images (OR P). All images stored on PACS. All CT scanners at this facility use dose modulation, iterative reconstruction, and/or weight based d osing when appropriate to reduce radiation dose to as low as reasonably achievable (ALARA). [facility]: Dose Right [facility]: CareDose [facility]: Dose Right [facility]: Teradose 4D [facility]: [employer] CONTRAST TYPE AND DOSE: Contrast/concentration: Isovue 350.00 mg/ml; Total Contrast Delivered: 62.0 ml; Total Saline Delivered: 108.0 ml Contrast bolus optimized for the pulmonary arteries. RENAL FUNCTION: Creatinine 0.35 milligrams/deciliter RADIATION DOSE: CT Rad equipment meets quality standard of care and radiation dose reduction techniq ues were employed. CTDIvol: 5.6 - 7.8 mGy. DLP: 783 mGy-cm. . LIMITATIONS: None. FINDINGS: LUNGS AND PLEURA: The trachea and main bronchi are patent. There is a moderate amount of fluid in the right pleural space. There are centrilobular nodular opacities scattered throughout bot h lungs that could represent part of a multifocal infection with endobronchial dissemination. The no dular areas of consolidation in the dependent portion of the lower lobes (for reference refer to imag es 27 and 31 of series 7) could represent part of the aforementioned infectious process or atelectasi s. There is a moderate amount of fluid in the right pleural space. There are parenchymal bands in t he right middle and lower lobes. There is no pneumothorax. AORTA AND GREAT VESSELS: Evaluation limited is the contrast bolus was optimized for evaluation of the pulmonary arteries. There is no thoracic aortic dissection or aneurysm. HEART: The left ventricle is enlarged. There is no pericardial effusion PULMONARY ARTERIES: The main pulmonary artery is dilated and it measures up to 3.8 cm in diameter. T here is no pulmonary embolus. HILAR AND MEDIASTINAL STRUCTURES: There are enlarged right lower peritracheal, AP window, subcarinal, and hilar lymph nodes ; the mediastinal lymph nodes measure up to 13 mm in short axis diameter and t he hilar lymph nodes measure up to 2.2 cm in short axis diameter. HARDWARE: None in the chest. UPPER ABDOMEN: No acute findings. THYROID AND OTHER SOFT TISSUES: No masses or adenopathy. BONES: No acute finding. 3D MIPS: Confirm above findings. OTHER: No other finding. IMPRESSION: 1. Scattered bilateral centrilobular nodular opacities that could represent part of a mu ltifocal infection with endobronchial dissemination. 2. Reactive mediastinal and hilar adenopathy. 3. No pulmonary embolus. 4. Dilated main pulmonary artery (it measures up to 3.8 cm in diameter) - correlate for pulmonary hy pertension. COMMENT: Quality ID # [id number]: Final reports with documentation of one or more dose reduction techniques (e.g., Automated exposure control, adjustment of the mA and/or kV according to patient size, use of iterative reconstruction technique) TECHNICAL DOCUMENTATION: JOB ID: [id number] [employer]- All Rights Reserved Reading location - IP/workstation name: [email or web address]
[2019-09-21] MEDS ORDERED: LEVOFLOXACIN 500 MG/D5W RTU 500 MG/100 ML RTUPB IV SCH (22:00)
[2019-09-22] MEDS: ALBUTEROL SULFATE HFA (90 MCG/PUFF) 200 PUFF/8.5 GM MDI IH SCH ×6 (02:00→21:04)
[2019-09-22 04:02] LABS: HEMATOCRIT 38.7 % (37.9-51.0); HEMOGLOBIN 12.7 g/dL (13.5-17.0); MEAN CORPUSCULAR HEMOGLOBIN 31.6 pg (27.0-33.4); MEAN CORPUSCULAR HGB CONC 32.8 g/dL (32.0-36.0); MEAN CORPUSCULAR VOLUME 96 fl (80-97); PLATELET COUNT 275 10^3/uL (150-450); RED BLOOD COUNT 4.01 10^6/uL (4.35-5.55); RED CELL DISTRIBUTION WIDTH 14.5 % (11.5-14.0); WHITE BLOOD COUNT 22.4 10^3/uL (4.0-10.5)
[2019-09-22 04:24] LABS: BLOOD UREA NITROGEN 12 mg/dL (7-20); CHLORIDE 92 mmol/L (98-107); GLUCOSE 122 mg/dL (75-110); POTASSIUM 4.8 mmol/L (3.6-5.0)
[2019-09-22 04:50] LABS: ABSOLUTE LYMPHOCYTES# (MANUAL) 0.7 10^3/uL (0.5-4.7); ABSOLUTE MONOCYTES # (MANUAL) 1.6 10^3/uL (0.1-1.4); BASOPHILS % (MANUAL) 0 % (0-2); EOSINOPHILS % (MANUAL) 0 % (0-6); LYMPHOCYTES % (MANUAL) 3 % (13-45); MONOCYTES % (MANUAL) 7 % (3-13); SEGMENTED NEUTROPHILS % (MAN) 90 % (42-78); TOTAL CELLS COUNTED 100
[2019-09-22 04:51] LABS: ANISOCYTOSIS SLIGHT; OVALOCYTES SLIGHT; PLATELET COMMENT ADEQUATE; POIKILOCYTOSIS SLIGHT; TOXIC GRANULATION SLIGHT; TOXIC VACUOLATION PRESENT
[2019-09-22 04:53] LABS: PHOSPHORUS 3.7 mg/dL (2.5-4.5)
[2019-09-22 05:02] LABS: CARBON DIOXIDE 39 mmol/L (22-30)
[2019-09-22 05:03] LABS: ANION GAP 4 (5-19)
[2019-09-22] MEDS: HEPARIN SOD (PORCINE) 5,000 UNIT/ML 1 ML VIAL SUBCUT SCH (06:46)
[2019-09-22] MEDS ORDERED: ALBUTEROL SULFATE HFA (90 MCG/PUFF) 200 PUFF/8.5 GM MDI IH PRN (11:01)
[2019-09-22] MEDS: AZITHROMYCIN 250 MG TABLET PO SCH (11:02)
[2019-09-22] MEDS: METHADONE HCL 10 MG TABLET PO SCH (11:02)
[2019-09-22] MEDS: GUAIFENESIN 600 MG TABLET.SA PO SCH ×2 (11:02→21:00)
[2019-09-22] MEDS: METHYLPREDNISOLONE INJ 40 MG/1 ML SDV IV SCH ×2 (11:03→21:00)
[2019-09-22] MEDS ORDERED: (PENDING PHARMACY ID) (Lisinopril [Zestril] 10 MG) PO SCH (11:15)
[2019-09-22] MEDS ORDERED: (PENDING PHARMACY ID) (Fluticasone/Salmeterol 1 PUFF) IH SCH (11:15)
--- NOTE | 2019-09-22 11:57 | PDOC CRITICAL CARE PROG REPORT ---
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 He did not require noninvasive elation. He did become quite upset yesterday when he was notified that his 5-year-old daughter may not be able to come into the ICU. Did accommodate this request and patient was able to visit with his daughter while she wore a mask. He accepted the risk for both her and he. 09.21.19: As noted in the H&P patient has had significant medical illnesses most of which center on his respiratory system. Chronic upper respiratory and sinus dysfunction culminating in the need for sinus surgery in the past. 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 Does see a hat presser, Dr. Porras, and was scheduled to see him in October. He has been exposed to various upper respiratory infections within the family. He has felt weak and rundown for the last few weeks. Normally he can work more than 5 hours a day but now 3 or less. Had a significant weight loss with almost 30 pounds in the last few months. He has had no hemoptysis or hematemesis. He says that the weight loss is sec ondary to swallowing and feeling that food is not going down well. He denies nor endorses any aspiration events. He does continue to smoke despite being on home oxygen On exam he is very thin with obvious bitemporal muscle wasting. He has significant dental caries. There are no audible bruits nor is there any adenopathy Heart has a regular rate and rhythm. No audible murmur or gallops Lungs have dry crackles but otherwise clear. There is increased AP to lateral diameter Abdomen is benign as is the neurological exam. No mottling or skin discoloration. Notably there is no clubbing Patient was seen at [facility] a year and a half ago for pneumonia had a difficult intubation after self extubating. He does not know of any history of alpha-1 antitrypsin the only family member who from lung disease was a long-term tobacco user who late in life. In review of his CT scans in 2018 he had a lung nodule which was listed as benign. You have chest x-ray on this admission shows significant flattening of diaphragms and enlarged lung lr. The right lower lobe has a mixed intersti tial alveolar pattern that may be suggestive of a viral pneumonitis. Patient is scheduled for CT this morning. Review of systems relevant to events:: He denies shortness of breath. His oxygen requirements have improved and he is now down to 4 L nasal cannula. He has had no chest pain no abdominal pain. Serologies are still pending. Echo with Dr. Marques showed RV strain. 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 No history of atrial fibrillation. Has been maintained on this for unknown reasons. Did not have recurrent VTE. Reason for ICU Addmission:: Hypoxemic and hypercarbic respiratory failure - Medications: Medications reviewed and adjusted accordingly: Yes Physical Exam Vital Signs: Temp Pulse Resp BP Pulse Ox 98.9 F 58 L 12 137/80 H 99 09/22/19 08:00 09/22/19 09:00 09/22/19 08:00 09/22/19 08:00 09/22/19 08:00 Intake & Output 09/21/19 09/22/19 09/23/19 06:59 06:59 06:59 Intake Total 3186 720 Output Total 0 1700 Balance 3186 -980 Weight 63.5 kg 65.3 kg Weight/Height Weight 65.3 kg Height 5 ft 11 in General appearance: PRESENT: no acute distress, cooperative, thin, well- developed Exam: Thin, non-toxic, ill, chronically ill, 44 yo white male, appears older than stated age, AA&OX3 Head exam: PRESENT: atraumatic, normocephalic Eye exam: PRESENT: conjunctiva pink, EOMI, PERRLA. ABSENT: conjunctival injection, scleral icterus Ear exam: PRESENT: normal external ear exam Mouth exam: PRESENT: dry mucosa, neck supple, tongue midline Teeth exam: PRESENT: dental caries, poor dentation Neck exam: ABSENT: carotid bruit, JVD, lymphadenopathy, thyromegaly Respiratory exam: PRESENT: clear to auscultation rodrigo, decreased breath sounds - On right, unlabored. ABSENT: accessory muscle use, rales, rhonchi, tachypnea, wheezes Cardiovascular exam: PRESENT: RRR, +S1, +S2. ABSENT: diastolic murmur, rubs, systolic murmur Pulses: PRESENT: +1 pedal pulses bilateral Vascular exam: PRESENT: normal capillary refill. ABSENT: pallor GI/Abdominal exam: PRESENT: normal bowel sounds, soft. ABSENT: ascites, distended, guarding, mass, organolmegaly, rebound, tenderness Rectal exam: PRESENT: deferred Extremities exam: ABSENT: pedal edema, tenderness Musculoskeletal exam: PRESENT: normal inspection. ABSENT: deformity, dislocation Neurological exam: PRESENT: alert, awake, oriented to person, oriented to place, oriented to time, oriented to situation, CN II-XII grossly intact. ABSENT: motor sensory deficit Psychiatric exam: PRESENT: appropriate affect, normal mood Focused psych exam: ABSENT: pressured speech, psychomotor agitation, restlessness Skin exam: PRESENT: dry, intact, warm, other - No clubbing. ABSENT: cyanosis, rash Tubes/Lines: ABSENT: Endotracheal Tube, Chest Tube, Central Line, Arterial Catheter, Dialysis catheter, Peg Tube, Nasogastic Tube, Other Laboratory/Radiographs Laboratory Results: 09/22/19 03:45 09/22/19 03:45 09/21/19 09/22/19 09/22/19 08:15 03:45 03:45 WBC 22.4 H RBC 4.01 L Hgb 12.7 L Hct 38.7 MCV 96 MCH 31.6 MCHC 32.8 RDW 14.5 H Plt Count 275 Seg Neutrophils % Not Reportable Carbonic Acid 2.01 H HCO3/H2CO3 Ratio 20:1 ABG pH 7.40 ABG pCO2 66.9 H ABG pO2 63.8 L ABG HCO3 40.2 H ABG O2 Saturation 91.5 L ABG Base Excess 12.3 FiO2 9L Sodium 135.4 L Potassium 4.8 Chloride 92 L Carbon Dioxide 39 H Anion Gap 4 L BUN 12 Creatinine 0.43 L Est GFR ( Amer) > 60 Glucose 122 H Calcium 9.0 Phosphorus 3.7 Magnesium 1.9 09/22/19 05:25 WBC RBC Hgb Hct MCV MCH MCHC RDW Plt Count Seg Neutrophils % Carbonic Acid Cancelled HCO3/H2CO3 Ratio Cancelled ABG pH Cancelled ABG pCO2 Cancelled ABG pO2 Cancelled ABG HCO3 Cancelled ABG O2 Saturation Cancelled ABG Base Excess Cancelled FiO2 Cancelled Sodium Potassium Chloride Carbon Dioxide Anion Gap BUN Creatinine Est GFR ( Amer) Glucose Calcium Phosphorus Magnesium 09/20/19 09/21/19 18:12 05:52 Troponin I < 0.012 NT-Pro-B Natriuret Pep 450 H 387 H Impressions: Chest/Abdomen CTA 09/21/19 08:00 IMPRESSION: 1. Scattered bilateral centrilobular nodular opacities that could represent part of a multifocal infection with endobronchial dissemination. 2. Reactive mediastinal and hilar adenopathy. 3. No pulmonary embolus. 4. Dilated main pulmonary artery (it measures up to 3.8 cm in diameter) - correlate for pulmonary hypertension. Chest X-Ray 09/21/19 10:00 IMPRESSION: Trace right pleural effusion. All labs, radiographs, diagnostic studies and EKGs were personally reviewed: Yes In addition, reports of radiographic and diagnostic studies were read: Yes Assessment and Plan - Diagnosis (1) Methadone dependence Is this a current diagnosis for this admission?: Yes (2) Acute and chronic respiratory failure with hypoxia Is this a current diagnosis for this admission?: Yes (3) Oxygen dependent Is this a current diagnosis for this admission?: Yes (4) Asthma exacerbation with COPD (chronic obstructive pulmonary disease) Is this a current diagnosis for this admission?: Yes (5) Tobacco dependence Is this a current diagnosis for this admission?: Yes (6) Tobacco abuse counseling Is this a current diagnosis for this admission?: Yes (7) Dysphagia Qualifiers: Dysphagia type: unspecified Qualified Code(s): R13.10 - Dysphagia, u nspecified Is this a current diagnosis for this admission?: Yes Plan: Will need modified barium swallow. (8) History of venous thromboembolism Is this a current diagnosis for this admission?: Yes Plan: Awaiting records from [facility] Pulmonary hypertension clinic to determine if he is continued on Anticoagulation for PHTN. Plan Summary: 09.22.19: Patient has shown improvement and is transition to nasal cannula. Pulmonary to follow-up and see patient today. We have not ordered an alpha-1 antitrypsin until his acute crisis is resolved. Had a lengthy discussion with the patient and reviewed the use of his anticoagulation (Xarelto). He states that he has been taking this because of a pulmonary embolism and DVT in 2018 during a hospitalization which was prolonged. Denies any recurrence and states this was during an immobilization time in ICU. Spoke with his sole edge inker machine, Dr. Marques, who has continued on this because he was unsure why he was continued on it as well. To that end I have requested records from [facility] pulmonary hypertension clinic and from his hospital stay to determine if there is a pulmonary hypertension reason for continuing the antico agulation. Given that commendations for continuing anticoagulation are indicated for CTEPH I will continue him on this regimen. He does have pulmonary hypertension that may be related to tobacco use which would exclude the use of anticoagulation. We will have to await records to determine suitability. He is at risk for recurrent VTE given his smoking status. He will require a modified barium swallow to evaluate his dysphasia. He states that his 30 pound weight loss is related to this. We will await the studies before consulting either ENT or GI for evaluation of upper airway and/or gastro intestinal tract. He states that most of his dysfunction appears to be in the upper portion of his neck. Will downgrade patient to floor status. Continue to wean oxygen to his baseline of 2 L. Chest x-ray has been clear. Respiratory viral panel is still pending however even if positive treatment is still steroids and azithromycin for inflammation. Counseling regarding smoking was also done. Patient is on NicoDerm patch. 09.21.19: He has improved from his initial presentation and is now on nasal cannula. He is on home O2 as well. Plans for today: #1: Follow-up on CT scan 2.: Pulmonary consult 3.: Start azithromycin for anti-inflammatory and atypical pneumonia. 4.: Screen for inflammatory lung disease with ANCA and CT scan 5.: Speech and swallow eval to determine where the difficulty swallowing is occurring and follow-up on CT to evaluate possible neck structure dysfunction 6.: Patient may need EGD especially with his significant weight loss. He may need bronchoscopy as well. If there is swallowing dysfunction will have ENT evaluate the patient. Patient will remain in ICU until we can be assured that his respiratory status is stable. Critical Time Critical Time (minutes): 0 - [id number] Level of Care: MEDICAL Anticipated discharge: Home Within: within 48 hours -: 1. The care of a critical patient is a dynamic process. This note is a office machines sales representative synopsis but static in nature. The timeframe for treatments given in order is not necessary the actual time these treatments may have been done. 2. This patient requires critical care secondary to ongoing requirements for therapy not offered or safe outside the critical care environment. Transfer to a lower level of care with altered life or limb morbidity and mortality. 3. Multidisciplinary rounds completed. 4. ABCDE bundle addressed.
[2019-09-22] MEDS ORDERED: (PENDING PHARMACY ID) (Tiotropium Bromide [Spiriva Handihaler 5 Cap/Kit (18 Mcg/Cap)] 1 CA IH SCH (13:15)
[2019-09-22] MEDS ORDERED: RIVAROXABAN 10 MG TABLET PO SCH (14:00)
[2019-09-22] MEDS: LISINOPRIL 10 MG TABLET PO SCH (15:25)
[2019-09-22] MEDS: UMECLIDINIUM BROMIDE 62.5 MCG/DOSE IH SCH (15:27)
[2019-09-22] MEDS: FLUTICASONE/VILANTEROL 200-25 MCG/DOSE IH SCH (15:28)
[2019-09-22] MEDS: METOPROLOL TARTRATE 25 MG TABLET PO SCH ×2 (15:29→17:45)
[2019-09-22 17:36] LABS: ANTIMYELOPEROXIDASE (MPO) AB <9.0 U/mL (0.0-9.0); CYTOPLASMIC (C-ANCA) <1:20 titer (Neg:<1:20)
[2019-09-23] MEDS: ALBUTEROL SULFATE HFA (90 MCG/PUFF) 200 PUFF/8.5 GM MDI IH SCH ×3 (01:43→10:37)
[2019-09-23 04:17] LABS: ABSOLUTE MONOCYTES (AUTO) 0.4 10^3/uL (0.1-1.4); ABSOLUTE NEUT (AUTO) 14.9 10^3/uL (1.7-8.2); BASOPHILS % (AUTO) 0.3 % (0-2); HEMATOCRIT 41.4 % (37.9-51.0); HEMOGLOBIN 13.7 g/dL (13.5-17.0); LYMPHOCYTES % (AUTO) 6.3 % (13-45); MEAN CORPUSCULAR HEMOGLOBIN 32.2 pg (27.0-33.4); MEAN CORPUSCULAR VOLUME 98 fl (80-97); MONOCYTES % (AUTO) 2.4 % (3-13); PLATELET COUNT 335 10^3/uL (150-450); RED BLOOD COUNT 4.25 10^6/uL (4.35-5.55); RED CELL DISTRIBUTION WIDTH 14.4 % (11.5-14.0); TOTAL CELLS COUNTED % (AUTO) 100 %; WHITE BLOOD COUNT 16.4 10^3/uL (4.0-10.5)
[2019-09-23 04:36] LABS: ANION GAP 6 (5-19); BLOOD UREA NITROGEN 12 mg/dL (7-20); CALCIUM 9.4 mg/dL (8.4-10.2); CARBON DIOXIDE 39 mmol/L (22-30); CHLORIDE 93 mmol/L (98-107); GLUCOSE 147 mg/dL (75-110); PHOSPHORUS 4.7 mg/dL (2.5-4.5); POTASSIUM 4.7 mmol/L (3.6-5.0)
[2019-09-23 07:11] LABS: ATYPICAL PANCA <1:20 titer (Neg:<1:20)
[2019-09-23] MEDS ORDERED: METHADONE HCL 10 MG TABLET PO SCH (08:00)
--- NOTE | 2019-09-23 09:55 | RADIOLOGY REPORT (SQ) ---
EXAM DESCRIPTION: TENA SWALLOW COMPLETED DATE/TIME: 09/23/2019 9:30 am REASON FOR STUDY: dysphagia COMPARISON: None. TECHNIQUE: Videofluoroscopic swallowing examination was performed in conjunction with speech patholo gy. Videofluoroscopic imaging was obtained and reviewed and these are the findings: RADIATION DOSE: Fluoro time 2.02 minutes 1 images saved to PACS. LIMITATIONS: None FINDINGS: The patient was brought into the fluoro room and placed upright on a modified barium swall ow chair. The patient was then given multiple consistencies mixed with barium to swallow under live fluoroscopic video guidance. According to the Speech Pathologist there was flash laryngeal penetrati on seen with thin barium. No aspiration identified. All other consistencies were swallowed without incident. Please refer to the speech pathology report for further details. IMPRESSION: LARYNGEAL PENETRATION, WITHOUT ASPIRATION, SEEN WITH THIN BARIUM. PLEASE SEE SPEECH PATH OLOGIST REPORT FOR OTHER FINDINGS AND RECOMMENDATIONS. COMMENT: None Quality ID [id number]: Final reports for procedures using fluoroscopy that document radiation exposure tiffany bailey, or exposure time and number of fluorographic images (if radiation exposure indices are not avail able) TECHNICAL DOCUMENTATION: JOB ID: [id number] [email or web address]- All Rights Reserved Reading location - IP/workstation name: [email or web address] [id number]
[2019-09-23] MEDS ORDERED: FUROSEMIDE 20 MG TABLET PO SCH (10:00)
[2019-09-23] MEDS: MAGNESIUM SULFATE/D5W 1 GM/100 ML RTUPB IV SCH ×2 (10:34→11:49)
[2019-09-23] MEDS: FLUTICASONE/VILANTEROL 200-25 MCG/DOSE IH SCH (10:36)
[2019-09-23] MEDS: UMECLIDINIUM BROMIDE 62.5 MCG/DOSE IH SCH (10:37)
[2019-09-23] MEDS: METHADONE HCL 10 MG TABLET PO SCH (10:40)
[2019-09-23] MEDS: METOPROLOL TARTRATE 25 MG TABLET PO SCH (10:41)
[2019-09-23] MEDS: AZITHROMYCIN 250 MG TABLET PO SCH (10:42)
[2019-09-23] MEDS: METHYLPREDNISOLONE INJ 40 MG/1 ML SDV IV SCH (10:43)
[2019-09-23] MEDS: LISINOPRIL 10 MG TABLET PO SCH (10:44)
--- NOTE | 2019-09-23 11:28 | ST Inp Modified Barium Swallow ---
Medical Diagnosis - Medical Diagnoses Medical Diagnosis Description & ICD-10 Code(s): pneumonia, dysphagia ST Inpatient [facility] [place] - General Date: 09/23/19 Date of Onset: 06/19/19 - approximate onset date - History -: Medical - per EMR: patient admitted 09/21 with hypoxemic and hypercarbic respiratory failure. Chest x-ray showed possible right lower lobe infiltrates. Prior medical history includes pulmonary embolism, CHF, CVA, COPD, respiratory illness x1 month. Patient described swallowing difficulty since patient self- extubated and was subsequently re-intubated with difficulty at [place] more than 1 year ago. The patient reports swallowing is getting worse, and reports losing 30 pounds in 3 months due to difficulty swallowing, especially "hard foods", such as meats. Patient states that he feels food get stuck, and then has to drink a lot of liquid to "get it down", states that he can feel liquid going around the food. He states that since he has to drink so much liquid, he fills up quickly. Patient denies any coughing with eating or drinking, denies any sensation of material "going the wrong way". Medications: Medications Reviewed Allergies: Refer to medical record - Subjective Current Nutritional Means: PO Current PO Diet: Regular Current Symptoms: Weight loss, Pneumonia, c/o Globus sensation Pain: Patient reports, 0/5 - Objective Assessment: Upright, Left Lateral - Food Trials Food Trials Used: Thin liquids, Pureed, Regular The Patient: Was Able to Self Feed - Assessment Labial Function: Within Normal Limits Lingual Function: Within Normal Limits Mandibular Function: Within Normal Limits Laryngeal Function: clear voicing - Pharyngeal Stage Initiation of Pharyngeal Stage: Normal Decreased Laryngeal Elevation: Yes - mild Reduced Velo-Pharyngeal Closure: no Reduced Pressure Generation: Yes Reduced Tongue Base Retraction: No Pre-Swallowing Pooling in Valleculae: None Pre-Swallowing Pooling in Pyriforms: None Reduced Thyro-Hyiod Approximation: Yes - mild Reduced Epiglottic Excursion: No Reduced Pharyngeal Peristalsis: No Multiple Swallows With: Effective - residue cleared with both dry swallow and liquid wash Post Swallow Residuals in Valleculae: Mild - with pudding trials, Significant - with cracker trials Post Swallow Residuals in Pyriforms: None Pahryngeal Stage Comments: Pharyngeal musclature is moving with normal limits, adequate airway protection seen. Patient was noted to have residue in valleculae with solids, however, patient reported no sensation of residue, and no replication of his swallowing symptoms when residue was present in valleculae. When cued for second swallow, residue cleared, and patient reports he frequently drinks liquids with meals due to globus sensation. - Impression/Summary Laryngeal Penetration: Yes - flash penetration seen with subsequent sips of thin liquid Tracheal Aspiration: no Patient Presents With: Pharyngeal stage dysph. - moderate, characterized by residue of solids in valleculae. Risk of Aspiration: Minimal - Recommendations Solid Diet Recommendations: Regular Liquid Diet Recommendations: Thin Strict Aspitarion Precautions: Yes Dysphagia Therapy with SNUFF GRINDER: No Recommended Techniques: Fully Upright During Meal, Small Bites and Sips, Alternate Bites/Sips - Time Total Time: 30 Total Timed Minutes: 30
--- NOTE | 2019-09-23 11:36 | PDOC CRITICAL CARE PROG REPORT ---
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 Added on home regimen medications. Advanced to oral inhalation therapy with no nebulizer requirement Review of systems relevant to events:: Patient is adamant and demanding to be discharged. Denies difficulty swallowing today. On baseline O2 without hemodynamic or respiratory compromise. No fever Reason for ICU Addmission:: Hypoxemic and hypercarbic respiratory failure - Medications: Medications reviewed and adjusted accordingly: Yes Physical Exam Vital Signs: Temp Pulse Resp BP Pulse Ox 98.1 F 57 L 12 119/78 94 09/22/19 16:00 09/22/19 21:00 09/23/19 06:00 09/23/19 05:30 09/23/19 06:00 Intake & Output 09/22/19 09/23/19 09/24/19 06:59 06:59 06:59 Intake Total 720 900 Output Total 1700 1550 Balance -980 -650 Weight 65.3 kg 65 kg Weight/Height Weight 65 kg Height 5 ft 11 in General appearance: PRESENT: no acute distress, cooperative, thin, well- developed Exam: Thin older appearing 44-year-old male no acute distress nontoxic slightly cache ctic appearing Eye exam: PRESENT: conjunctiva pink, EOMI, PERRLA. ABSENT: conjunctival injection, scleral icterus Mouth exam: PRESENT: dry mucosa Teeth exam: PRESENT: poor dentation Neck exam: ABSENT: carotid bruit, JVD, lymphadenopathy, thyromegaly Respiratory exam: PRESENT: clear to auscultation rodrigo, unlabored. ABSENT: rales, rhonchi, tachypnea, wheezes Cardiovascular exam: PRESENT: RRR, +S1, +S2. ABSENT: diastolic murmur, rubs, systolic murmur Pulses: PRESENT: +1 pedal pulses bilateral GI/Abdominal exam: PRESENT: normal bowel sounds, soft. ABSENT: ascites, distended, guarding, mass, organolmegaly, rebound, tenderness Rectal exam: PRESENT: deferred Extremities exam: ABSENT: joint swelling, pedal edema Musculoskeletal exam: PRESENT: normal inspection. ABSENT: deformity, dislocation Neurological exam: PRESENT: alert, awake, oriented to person, oriented to place, oriented to time, oriented to situation, CN II-XII grossly intact. ABSENT: motor sensory deficit Psychiatric exam: PRESENT: appropriate affect, normal mood. ABSENT: agitated Focused psych exam: ABSENT: pressured speech, psychomotor agitation, restlessness Skin exam: PRESENT: dry, intact, normal color, warm. ABSENT: cyanosis, mottled, rash Tubes/Lines: ABSENT: Endotracheal Tube, Chest Tube, Central Line, Arterial C atheter, Dialysis catheter, Peg Tube, Nasogastic Tube, Other Laboratory/Radiographs Laboratory Results: 09/23/19 03:45 09/23/19 03:45 09/23/19 09/23/19 03:45 03:45 WBC 16.4 H RBC 4.25 L Hgb 13.7 Hct 41.4 MCV 98 H MCH 32.2 MCHC 33.0 RDW 14.4 H Plt Count 335 Seg Neutrophils % 91.0 H Sodium 137.7 Potassium 4.7 Chloride 93 L Carbon Dioxide 39 H Anion Gap 6 BUN 12 Creatinine 0.45 L Est GFR ( Amer) > 60 Glucose 147 H Calcium 9.4 Phosphorus 4.7 H Magnesium 1.8 09/20/19 09/21/19 18:12 05:52 Troponin I < 0.012 NT-Pro-B Natriuret Pep 450 H 387 H Impressions: Chest/Abdomen CTA 09/21/19 08:00 IMPRESSION: 1. Scattered bilateral centrilobular nodular opacities that could represent part of a multifocal infection with endobronchial dissemination. 2. Reactive mediastinal and hilar adenopathy. 3. No pulmonary embolus. 4. Dilated main pulmonary artery (it measures up to 3.8 cm in diameter) - correlate for pulmonary hypertension. Chest X-Ray 09/21/19 10:00 IMPRESSION: Trace right pleural effusion. All labs, radiographs, diagnostic studies and EKGs were personally reviewed: Yes In addition, reports of radiographic and diagnostic studies were read: Yes Assessment and Plan - Diagnosis (1) Acute and chronic respiratory failure with hypoxia Is this a current diagnosis for this admission?: Yes Plan: Improved. Awaiting swallow studies to determine aspiration risk and dysphagia symptoms (2) Methadone dependence Is this a current diagnosis for this admission?: Yes (3) Oxygen dependent Is this a current diagnosis for this admission?: Yes Plan: At baseline O2. Continue (4) Asthma exacerbation with COPD (chronic obstructive pulmonary disease) Is this a current diagnosis for this admission?: Yes Plan: Improved. Wean steroids (5) Tobacco dependence Is this a current diagnosis for this admission?: Yes Plan: Discussed. Will need post-discharge assistance. Referred to PCP and Pulmonary (6) Tobacco abuse counseling Is this a current diagnosis for this admission?: Yes (7) Dysphagia Qualifiers: Dysphagia type: unspecified Qualified Code(s): R13.10 - Dysphagia, unspecified Is this a current diagnosis for this admission?: Yes Plan: Scheduled for modified barium swallow. (8) History of venous thromboembolism Is this a current diagnosis for this admission?: Yes Plan: Records from [facility] Pulmonary hypertension clinic still pending but reviewed records from in-patient admission. Had documented Pulmonary Hypertension Plan Summary: 09.23.19: Patient is quite adamant about being discharged home today. He has improved however we would recommend another 24 hours on oral prednisone. He appears to be safe for discharge however we do not have results of the swallowing eval. He has had a significant weight loss and will need outpatient follow-up for this. We have referred him back to Dr. Porras, Dr. Marques, and his PCP. Despite our reticence to discharge him we a quiesced as long as he can assure us that he will return to the emergency room if he worsens. We have encouraged him again to stop smoking especially with oxygen use and his pulmonary hypertension. He will continue on oral steroids on a weaning dose program. We have replaced magnesium Continue anticoagulation Downgrade if he changes his mind. 09.22.19: Patient has shown improvement and is transition to nasal cannula. Pulmonary to follow-up and see patient today. We have not ordered an alpha-1 antitrypsin until his acute crisis is resolved. Had a lengthy discussion with the patient and reviewed the use of his anticoagulation (Xarelto). He states that he has been taking this because of a pulmonary embolism and DVT in 2018 during a hospitalization which was prolonged. Denies any recurrence and states this was during an immobilization time in ICU. Spoke with his social psychologist, Dr. Marques, who has continued on this because he was unsure why he was continued on it as well. To that end I have requested records from [facility] pulmonary hypertension clinic and from his hospital stay to determine if there is a pulmonary hypertension reason for continuing the anticoagulation. Given that commendations for continuing anticoagulation are indicated for CTEPH I will continue him on this regimen. He does have pulmonary hypertension that may be related to tobacco use which would exclude the use of anticoagulation. We will have to await records to determine suitability. He is at risk for recurrent VTE given his smoking status. He will require a modified barium swallow to evaluate his dysphasia. He states that his 30 pound weight loss is related to this. We will await the studies before consulting either ENT or GI for evaluation of upper airway and/or gastrointestinal tract. He states that most of his dysfunction appears to be in the upper portion of his neck. Will downgrade patient to floor status. Continue to wean oxygen to his baseline of 2 L. Chest x-ray has been clear. Respiratory viral panel is still pending however even if positive treatment is still steroids and azithromycin for inflammation. Counseling regarding smoking was also done. Patient is on NicoDerm patch. 09.21.19: He has improved from his initial presentation and is now on nasal cannula. He is on home O2 as well. Plans for today: #1: Follow-up on CT scan 2.: Pulmonary consult 3.: Start azithromycin for anti-inflammatory and atypical pneumonia. 4.: Screen for inflammatory lung disease with ANCA and CT scan 5.: Speech and swallow eval to determine where the difficulty swallowing is occurring and follow-up on CT to evaluate possible neck structure dysfunction 6.: Patient may need EGD especially with his significant weight loss. He may need bronchoscopy as well. If there is swallowing dysfunction will have ENT evaluate the patient. Patient will remain in ICU until we can be assured that his respiratory status is stable. Critical Time Critical Time (minutes): 0 - [id number] Level of Care: MEDICAL Anticipated discharge: Home Within: within 24 hours -: 1. The care of a critical patient is a dynamic process. This note is a repr esentative synopsis but static in nature. The timeframe for treatments given in order is not necessary the actual time these treatments may have been done. 2. This patient no longer requires critical care Transfer to a lower level of care was ordered yesterday but could not be accomplished secondary to bed capacity. Patient is demanding to go home. Appears stable for discharge but advised for 24 more hours. Adamant about leaving. 3. Multidisciplinary rounds completed. 4. ABCDE bundle addressed.
--- NOTE | 2019-09-23 12:56 | XCELERA REPORT ---
[address] [address] Transthoracic Echocardiogram Report Name: ELSA ANTONIA CARDONA III Age: 44 yrs Gender: Male : 1975 Patient Status: Inpatient Patient Location: ICU^601^A Study Date: 09/22/2019 12:28 PM Height: 71 in Weight: 143 lb BSA: 1.8 m2 Procedure: A two-dimensional transthoracic echocardiogram with color flow and Doppler was performed. Study Quality: Good. Reason For Study: Pulmonary hypertension History: Pulmonary hypertension. Ordering Physician: KYREE FAN Performed By: Lisa Seth Interpretation Summary The left ventricle is normal in size. There is normal left ventricular wall thickness. LV EF is >65%.% Left ventricular systolic function is normal. Doppler measurements suggest normal left ventricular diastolic function The left ventricular wall motion is normal. There is no thrombus. There is no ventricular septal defect visualized. The right ventricle is normal in size and function. The right atrium is normal. The left atrial size is normal. The interatrial septum is intact with no evidence for an atrial septal defect. There is no Doppler evidence for an interatrial shunt There is no evidence of mitral valve prolapse. The mitral valve leaflets appear thickened, but open well. There is no vegetation seen on the mitral valve. There is no mitral valve stenosis. There is a trace amount of mitral regurgitation There is no aortic valvular vegetation. There is no aortic valve stenosis There is no LVOT obstruction. No aortic regurgitation is present. There is no tricuspid stenosis. There is a trace to mild amount of tricuspid regurgitation At least early mild pulmonary hypertension.RVSP is at least 32.4 mm of HG , with RA mean of at least 20. There is no pulmonic valvular regurgitation. The aortic root is normal size. The inferior vena cava appeared dilated and did not change with respiration (RAP > 20 mmHg) There is no pericardial effusion. MMode/2D Measurements & Calculations RVDd: 2.8 cm LVIDd: 5.9 cm FS: 46.8 % Ao root diam: 3.3 cm IVSd: 0.79 cm LVIDs: 3.1 cm EDV(Teich): 170.1 ml Ao root area: 8.8 cm2 LVPWd: 0.92 cm ESV(Teich): 38.3 ml EF(Teich): 77.5 % Doppler Measurements & Calculations MV E max jm: MV dec slope: Ao V2 max: LV V1 max P.7 cm/sec 700.8 cm/sec2 147.6 cm/sec 5.5 mmHg MV A max jm: MV dec time: 0.19 secAo max PG: LV V1 max: 85.3 cm/sec 8.7 mmHg 117.7 cm/sec MV E/A: 1.6 PA V2 max: TR max jm: 101.3 cm/sec 176.0 cm/sec PA max P.1 mmHg TR max P.4 mmHg Left Ventricle The left ventricle is normal in size. There is normal left ventricular wall thickness. LV EF is >65%.%. Left ventricular systolic function is normal. Doppler measurements suggest normal left ventricular diastolic function. The left ventricular wall motion is normal. There is no thrombus. There is no ventricular septal defect visualized. Right Ventricle The right ventricle is normal in size and function. Atria The right atrium is normal. The left atrial size is normal. The interatrial septum is intact with no evidence for an atrial septal defect. There is no Doppler evidence for an interatrial shunt. Mitral Valve The mitral valve leaflets appear thickened, but open well. There is no evidence of mitral valve prolapse. There is no vegetation seen on the mitral valve. There is no mitral valve stenosis. There is a trace amount of mitral regurgitation. Aortic Valve There is no aortic valvular vegetation. There is no aortic valve stenosis. There is no LVOT obstruction. No aortic regurgitation is present. Tricuspid Valve There is no tricuspid stenosis. There is a trace to mild amount of tricuspid regurgitation. At least early mild pulmonary hypertension.RVSP is at least 32.4 mm of HG , with RA mean of at least 20. Pulmonic Valve There is no pulmonic valvular stenosis. There is no pulmonic valvular regurgitation. Great Vessels The aortic root is normal size. The inferior vena cava appeared dilated and did not change with respiration (RAP > 20 mmHg). Effusions There is no pericardial effusion. : KYREE FAN, Danyelle
--- NOTE | 2019-09-23 13:02 | PDOC DISCHARGE SUMMARY ---
Impression - Admit/DC Date/PCP Admission Date/Primary Care Provider: 09/20/19 23:45 MD Gee BLANCHARD MD Pulmonology Dr. Marques, Cardiology Discharge Date: 09/23/19 - Discharge Diagnosis (1) Acute and chronic respiratory failure with hypoxia Is this a current diagnosis for this admission?: Yes (2) Pulmonary hypertension assoc with unclear multi-factorial mechanisms Is this a current diagnosis for this admission?: Yes (3) Methadone dependence Is this a current diagnosis for this admission?: Yes (4) Oxygen dependent Is this a current diagnosis for this admission?: Yes (5) Asthma exacerbation with COPD (chronic obstructive pulmonary disease) Is this a current diagnosis for this admission?: Yes (6) Tobacco dependence Is this a current diagnosis for this admission?: Yes (7) Tobacco abuse counseling Is this a current diagnosis for this admission?: Yes (8) Dysphagia Is this a current diagnosis for this admission?: Yes (9) History of venous thromboembolism Is this a current diagnosis for this admission?: Yes (10) Viral pneumonitis Is this a current diagnosis for this admission?: Yes - Assessment Summary: Patient is quite adamant about being discharged home today. He has improved however we would recommend another 24 hours on oral prednisone. He appears to be safe for discharge however we do not have results of the swallowing eval. He has had a significant weight loss and will need outpatient follow-up for this. We have referred him back to Dr. Porras, Dr. Marques, and his PCP. Despite our reticence to discharge him we a quiesced as long as he can assure us that he will return to the emergency room if he worsens. We have encouraged him again to stop smoking especially with oxygen use and his pulmonary hypertension. He will continue on oral steroids on a weaning dose program. We have replaced magnesium Continue anticoagulation Downgrade if he changes his mind. Recommendations from Speech evaluation: Aspiration precautions warranted but full consistency with liquids 12.5.19: Patient has shown improvement and is transition to nasal cannula. Pulmonary to follow-up and see patient today. We have not ordered an alpha-1 antitrypsin until his acute crisis is resolved. Had a lengthy discussion with the patient and reviewed the use of his anticoagulation (Xarelto). He states that he has been taking this because of a pulmonary embolism and DVT in 2018 during a hospitalization which was prolonged. Denies any recurrence and states this was during an immobilization time in ICU. Spoke with his detective, Dr. Marques, who has continued on this because he was unsure why he was continued on it as well. To that end I have requested records from [facility] pulmonary hypertension clinic and from his hospital stay to determine if there is a pulmonary hypertension reason for continuing the anticoagulation. Given that commendations for continuing anticoagulation are indicated for CTEPH I will continue him on this regimen. He does have pulmonary hypertension that may be related to tobacco use which would exclude the use of anticoagulation. We will have to await records to determine suitability. He is at risk for recurrent VTE given his smoking status. He will require a modified barium swallow to evaluate his dysphasia. He states that his 30 pound weight loss is related to this. We will await the studies before consulting either ENT or GI for evaluation of upper airway and/or gastrointestinal tract. He states that most of his dysfunction appears to be in the upper portion of his neck. Will downgrade patient to floor status. Continue to wean oxygen to his baseline of 2 L. Chest x-ray has been clear. Respiratory viral panel is still pending however even if positive treatment is still steroids and azithromycin for inflam mation. Counseling regarding smoking was also done. Patient is on NicoDerm patch. 19: He has improved from his initial presentation and is now on nasal cannula. He is on home O2 as well. Plans for today: #1: Follow-up on CT scan 2.: Pulmonary consult 3.: Start azithromycin for anti-inflammatory and atypical pneumonia. 4.: Screen for inflammatory lung disease with ANCA and CT scan 5.: Speech and swallow eval to determine where the difficulty swallowing is occurring and follow-up on CT to evaluate possible neck structure dysfunction 6.: Patient may need EGD especially with his significant weight loss. He may need bronchoscopy as well. If there is swallowing dysfunction will have ENT evaluate the patient. Patient will remain in ICU until we can be assured that his respiratory status is stable. - Additional Information Resuscitation Status: Full Code Discharge Diet: Other (Comments) - Recommendations Solid Diet Recommendations: Regular Liquid Diet Recommendations: Thin Strict Aspitarion Precautions: Yes Dysphagia Therapy with [employer] MACHINE HELPER: No Recommended Techniques: Fully Upright During Meal , Small Bites and Sips, Alternate Bites/Sips Discharge Activity: Balance Activity w/Rest, Energy Conservation, Slowly Increase Activity, Weigh Daily Referrals: KIT PARSON MD [Primary Care Provider] - Follow up as needed GEE PORRAS MD [ACTIVE STAFF] - JOO MARQUES MD [ACTIVE PROVISIONAL STAFF] - Home Medications: Albuterol Sulfate [Proair HFA Inhalation Aerosol 8.5 gm MDI] 2 puff IH Q6HP PRN 09/21/19 Fluticasone/Salmeterol [Advair 250-50 Diskus 14 Dose/Diskus] 1 puff IH BID 09/21/19 Furosemide [Lasix 20 mg Tablet] 10 mg PO DAILY 09/21/19 Lisinopril [Zestril] 10 mg PO QAM 09/21/19 Methadone HCl [Dolophine 10 mg Tablet] 50 mg PO QAM 09/21/19 Metoprolol Tartrate [Lopressor 25 mg Tablet] 12.5 mg PO BID 09/21/19 Rivaroxaban [Xarelto] 20 mg PO DAILY 09/21/19 Tiotropium [place] [Spiriva Handihaler 5 Cap/Kit (18 Mcg/Cap)] 1 cap IH DAILY 09/21/19 History of Present Illiness History of Present Illness: ANTONIA HUNTER III is [id number] gentleman with an extensive cardiovascular and pulmonary medical history including PE, CHF, carotid stenosi s, CVA, HTN and COPD. Patient states that he has had a respiratory illness over the past month with intermittent productive cough and a few episodes of emesis over the last several days. He presented to the emergency room overnight with worsening shortness of breath and hypoxemia (SPO2 in the 70s on 2 L nasal cannula.) He became diaphoretic with worsening tachypnea and shortness of yossi ath. He was placed on BiPAP with significant improvement in symptoms. ABG showed significant hypercarbia which has been partially compensated. WBC is markedly elevated and proBNP was mildly elevated. CXR shows significantly hyper expanded lungs with possible right lower lobe infiltrates and possible effusions. Although clinically improving since first seen in the emergency room, patient admitted to the intensive care unit for possible impending respiratory failure. Placed on BiPap. Hospital Course Hospital Course: 09.23.19:Patient quite adamant about being discharged home today. He has improved however we would recommend another 24 hours on oral prednisone. He appears to be safe for discharge however we do not have results of the swallowing eval. He has had a significant weight loss and will need outpatient follow-up for this. We have referred him back to Dr. Porras, Dr. Marques, and his PCP. Despite our reticence to discharge him we a quiesced as long as he can assure us that he will return to the emergency room if he worsens. We have encouraged him again to stop smoking especially with oxygen use and his pulmonar y hypertension. He will continue on oral steroids on a weaning dose program. We have replaced magnesium Continue anticoagulation Downgrade if he changes his mind. Recommendations from Speech evaluation: Aspiration precautions warranted but full consistency with liquids Respiratory viral panel sent but not available for discharge. Suspect atypical or viral pneumonitis 09.22.19: Patient has shown improvement and is transition to nasal cannula. Pulmonary to follow-up and see patient today. We have not ordered an alpha-1 antitrypsin until his acute crisis is resolved. Had a lengthy discussion with the patient and reviewed the use of his anticoagulation (Xarelto). He states that he has been taking this because of a pulmonary embolism and DVT in 2018 during a hospitalization which was prolonged. Denies any recurrence and states this was during an immobilization time in ICU. Spoke with his detective, Dr. Marques, who has continued on this because he was unsure why he was continued on it as well. To that end I have requested records from [facility] pulmonary hypertension clinic and from his hospital stay to determine if there is a pulmonary hypertension reason for continuing the anticoagulation. Given that commendations for continuing anticoagulation are indicated for CTEPH I will continue him on this regimen. He does have pulmonary hypertension that may be related to tobacco use which would exclude the use of anticoagulation. We will have to await records to determine suitability. He is at risk for recurrent VTE given his smoking status. He will require a modified barium swallow to evaluate his dysphasia. He states that his 30 pound weight loss is related to this. We will await the studies before consulting either ENT or GI for evaluation of upper airway and/or gastrointestinal tract. He states that most of his dysfunction appears to be in the upper portion of his neck. Will downgrade patient to floor status. Continue to wean oxygen to his baseline of 2 L. Chest x-ray has been clear. Respiratory viral panel is still pending however even if positive treatment is still steroids and azithromycin for inflammation. Counseling regarding smoking was also done. Patient is on NicoDerm patch. 09.21.19: He has improved from his initial presentation and is now on nasal cannula. He is on home O2 as well. Plans for today: #1: Follow-up on CT scan 2.: Pulmonary consult 3.: Start azithromycin for anti-inflammatory and atypical pneumonia. 4.: Screen for inflammatory lung disease with ANCA and CT scan 5.: Speech and swallow eval to determine where the difficulty swallowing is occurring and follow-up on CT to evaluate possible neck structure dysfunction 6.: Patient may need EGD especially with his significant weight loss. He may need bronchoscopy as well. If there is swallowing dysfunction will have ENT evaluate the patient. Patient will remain in ICU until we can be assured that his respiratory status is stable Physical Exam Vital Signs: Temp Pulse Resp BP Pulse Ox 98.1 F 62 12 132/87 H 92 09/23/19 08:00 09/23/19 08:00 09/23/19 11:00 09/23/19 10:38 09/23/19 11:00 Intake & Output 09/22/19 09/23/19 09/24/19 06:59 06:59 06:59 Intake Total 720 900 600 Output Total 1700 1550 500 Balance -980 -650 100 Weight 65.3 kg 65 kg Exam: Please see today's progress note Results Laboratory Results: WBC 16.4 10^3/uL (4.0-10.5) H 09/23/19 03:45 RBC 4.25 10^6/uL (4.35-5.55) L 09/23/19 03:45 Hgb 13.7 g/dL (13.5-17.0) 09/23/19 03:45 Hct 41.4 % (37.9-51.0) 09/23/19 03:45 MCV 98 fl (80-97) H 09/23/19 03:45 MCH 32.2 pg (27.0-33.4) 09/23/19 03:45 MCHC 33.0 g/dL (32.0-36.0) 09/23/19 03:45 RDW 14.4 % (11.5-14.0) H 09/23/19 03:45 Plt Count 335 10^3/uL (150-450) 09/23/19 03:45 Lymph % (Auto) 6.3 % (13-45) L 09/23/19 03:45 Mcclain % (Auto) 2.4 % (3-13) L 09/23/19 03:45 Eos % (Auto) 0.0 % (0-6) 09/23/19 03:45 Baso % (Auto) 0.3 % (0-2) 09/23/19 03:45 Absolute Neuts (auto) 14.9 10^3/uL (1.7-8.2) H 09/23/19 03:45 Absolute Lymphs (auto) 1.0 10^3/uL (0.5-4.7) 09/23/19 03:45 Absolute Monos (auto) 0.4 10^3/uL (0.1-1.4) 09/23/19 03:45 Absolute Eos (auto) 0.0 10^3/uL (0.0-0.6) 09/23/19 03:45 Absolute Basos (auto) 0.0 10^3/uL (0.0-0.2) 09/23/19 03:45 Total Counted 100 09/22/19 03:45 Seg Neutrophils % 91.0 % (42-78) H 09/23/19 03:45 Seg Neuts % (Manual) 90 % (42-78) H 09/22/19 03:45 Band Neutrophils % 5 % (3-5) 09/20/19 18:12 Lymphocytes % (Manual) 3 % (13-45) L 09/22/19 03:45 Atypical Lymphs % 3 % (0) 09/20/19 18:12 Monocytes % (Manual) 7 % (3-13) 09/22/19 03:45 Eosinophils % (Manual) 0 % (0-6) 09/22/19 03:45 Basophils % (Manual) 0 % (0-2) 09/22/19 03:45 Abs Neuts (Manual) 20.2 10^3/uL (1.7-8.2) H 09/22/19 03:45 Abs Lymphs (Manual) 0.7 10^3/uL (0.5-4.7) 09/22/19 03:45 Abs Monocytes (Manual) 1.6 10^3/uL (0.1-1.4) H 09/22/19 03:45 Absolute Eos (Manual) 0.0 10^3/uL (0.0-0.6) 09/22/19 03:45 Abs Basophils (Manual) 0.0 10^3/uL (0.0-0.2) 09/22/19 03:45 Smudge Cells PRESENT 09/20/19 18:12 Toxic Granulation SLIGHT 09/22/19 03:45 Toxic Vacuolation PRESENT 09/22/19 03:45 Platelet Comment ADEQUATE 09/22/19 03:45 Poikilocytosis SLIGHT 09/22/19 03:45 Anisocytosis SLIGHT 09/22/19 03:45 Ovalocytes SLIGHT 09/22/19 03:45 Carbonic Acid Cancelled 09/22/19 05:25 HCO3/H2CO3 Ratio Cancelled 09/22/19 05:25 ABG pH Cancelled 09/22/19 05:25 ABG pCO2 Cancelled 09/22/19 05:25 ABG pO2 Cancelled 09/22/19 05:25 ABG HCO3 Cancelled 09/22/19 05:25 ABG Total CO2 Cancelled 09/22/19 05:25 ABG O2 Saturation Cancelled 09/22/19 05:25 ABG Base Excess Cancelled 09/22/19 05:25 FiO2 Cancelled 09/22/19 05:25 Sodium 137.7 mmol/L (137-145) 09/23/19 03:45 Potassium 4.7 mmol/L (3.6-5.0) 09/23/19 03:45 Chloride 93 mmol/L (98-107) L 09/23/19 03:45 Carbon Dioxide 39 mmol/L (22-30) H 09/23/19 03:45 Anion Gap 6 (5-19) 09/23/19 03:45 BUN 12 mg/dL (7-20) 09/23/19 03:45 Creatinine 0.45 mg/dL (0.52-1.25) L 09/23/19 03:45 Est GFR ( Amer) > 60 (>60) 09/23/19 03:45 Est GFR (MDRD) Non-Af > 60 (>60) 09/23/19 03:45 Glucose 147 mg/dL (75-110) H 09/23/19 03:45 Lactic Acid 1.0 mmol/L (0.7-2.1) 09/20/19 18:55 Calcium 9.4 mg/dL (8.4-10.2) 09/23/19 03:45 Phosphorus 4.7 mg/dL (2.5-4.5) H 09/23/19 03:45 Magnesium 1.8 mg/dL (1.6-2.3) 09/23/19 03:45 Total Bilirubin 0.8 mg/dL (0.2-1.3) 09/20/19 18:12 Direct Bilirubin 0.1 mg/dL (0.0-0.4) 09/20/19 18:12 Neonat Total Bilirubin Not Reportable 09/20/19 18:12 Neonat Direct Bilirubin Not Reportable 09/20/19 18:12 Neonat Indirect Bili Not Reportable 09/20/19 18:12 AST 24 U/L (17-59) 09/20/19 18:12 ALT 9 U/L (<50) 09/20/19 18:12 Alkaline Phosphatase 137 U/L (38-126) H 09/20/19 18:12 Troponin I < 0.012 ng/mL 09/20/19 18:12 NT-Pro-B Natriuret Pep 387 pg/mL (<125) H 09/21/19 05:52 Total Protein 7.2 g/dL (6.3-8.2) 09/20/19 18:12 Albumin 4.2 g/dL (3.5-5.0) 09/20/19 18:12 c-ANCA Antibody <1:20 titer (Neg:<1:20) 09/21/19 05:52 Anti-Proteinase 3 Intrp <3.5 U/mL (0.0-3.5) 09/21/19 05:52 Atypical p-ANCA <1:20 titer (Neg:<1:20) 09/21/19 05:52 p-ANCA Antibody <1:20 titer (Neg:<1:20) 09/21/19 05:52 Myeloperoxidase Ab <9.0 U/mL (0.0-9.0) 09/21/19 05:52 Influenza A (Rapid) NEGATIVE (NEGATIVE) 09/20/19 18:55 Influenza B (Rapid) NEGATIVE (NEGATIVE) 09/20/19 18:55 09/20/19 09/21/19 18:12 05:52 Troponin I < 0.012 NT-Pro-B Natriuret Pep 450 H 387 H Impressions: Chest X-Ray 09/20/19 17:56 IMPRESSION: Chronic lung changes. Cannot exclude a minimal right pleural effusion. Chest X-Ray 09/20/19 19:19 IMPRESSION: Chronic lung changes. Cannot exclude a minimal right lower lobe pneumonia. There appears to be a minimal right pleural effusion. On this study, however there is the suggestion of an air-fluid level, raises the possibility of a hydropneumothorax. Chest/Abdomen CTA 09/21/19 08:00 IMPRESSION: 1. Scattered bilateral centrilobular nodular opacities that could represent part of a multifocal infection with endobronchial dissemination. 2. Reactive mediastinal and hilar adenopathy. 3. No pulmonary embolus. 4. Dilated main pulmonary artery (it measures up to 3.8 cm in diameter) - correlate for pulmonary hypertension. Chest X-Ray 09/21/19 10:00 IMPRESSION: Trace right pleural effusion. Modified Barium Swallow 09/23/19 00:00 IMPRESSION: LARYNGEAL PENETRATION, WITHOUT ASPIRATION, SEEN WITH THIN BARIUM. PLEASE SEE SPEECH PATHOLOGIST REPORT FOR OTHER FINDINGS AND RECOMMENDATIONS. Labs- Entire Visit 09/20/19 09/20/19 09/20/19 18:12 18:12 18:12 WBC 28.8 H RBC 4.68 Hgb 15.3 Hct 44.9 MCV 96 MCH 32.6 MCHC 34.0 RDW 14.1 H Plt Count 269 Lymph % (Auto) Not Reportable Mcclain % (Auto) Not Reportable Eos % (Auto) Not Reportable Baso % (Auto) Not Reportable Absolute Neuts (auto) Not Reportable Absolute Lymphs (auto) Not Reportable Absolute Monos (auto) Not Reportable Absolute Eos (auto) Not Reportable Absolute Basos (auto) Not Reportable Total Counted 100 Seg Neutrophils % Not Reportable Seg Neuts % (Manual) 84 H Band Neutrophils % 5 Lymphocytes % (Manual) 5 L Atypical Lymphs % 3 Monocytes % (Manual) 3 Eosinophils % (Manual) 0 Basophils % (Manual) 0 Abs Neuts (Manual) 25.6 H Abs Lymphs (Manual) 2.3 Abs Monocytes (Manual) 0.9 Absolute Eos (Manual) 0.0 Abs Basophils (Manual) 0.0 Smudge Cells PRESENT Toxic Granulation Toxic Vacuolation Platelet Comment ADEQUATE Poikilocytosis Anisocytosis SLIGHT Ovalocytes Carbonic Acid HCO3/H2CO3 Ratio ABG pH ABG pCO2 ABG pO2 ABG HCO3 ABG Total CO2 ABG O2 Saturation ABG Base Excess FiO2 Sodium 134.2 L Potassium 4.7 Chloride 85 L Carbon Dioxide 39 H Anion Gap 10 BUN 6 L Creatinine 0.39 L Est GFR ( Amer) > 60 Est GFR (MDRD) Non-Af > 60 Glucose 114 H Lactic Acid Calcium 9.6 Phosphorus Magnesium Total Bilirubin 0.8 Direct Bilirubin 0.1 Neonat Total Bilirubin Not Reportable Neonat Direct Bilirubin Not Reportable Neonat Indirect Bili Not Reportable AST 24 ALT 9 Alkaline Phosphatase 137 H Troponin I < 0.012 NT-Pro-B Natriuret Pep 450 H Total Protein 7.2 Albumin 4.2 c-ANCA Antibody Anti-Proteinase 3 Intrp Atypical p-ANCA p-ANCA Antibody Myeloperoxidase Ab Influenza A (Rapid) Influenza B (Rapid) 09/20/19 09/20/19 09/20/19 18:55 18:55 18:55 WBC RBC Hgb Hct MCV MCH MCHC RDW Plt Count Lymph % (Auto) Mcclain % (Auto) Eos % (Auto) Baso % (Auto) Absolute Neuts (auto) Absolute Lymphs (auto) Absolute Monos (auto) Absolute Eos (auto) Absolute Basos (auto) Total Counted Seg Neutrophils % Seg Neuts % (Manual) Band Neutrophils % Lymphocytes % (Manual) Atypical Lymphs % Monocytes % (Manual) Eosinophils % (Manual) Basophils % (Manual) Abs Neuts (Manual) Abs Lymphs (Manual) Abs Monocytes (Manual) Absolute Eos (Manual) Abs Basophils (Manual) Smudge Cells Toxic Granulation Toxic Vacuolation Platelet Comment Poikilocytosis Anisocytosis Ovalocytes Carbonic Acid 2.38 H HCO3/H2CO3 Ratio 16:1 ABG pH 7.31 L ABG pCO2 79.0 H* ABG pO2 65.3 L ABG HCO3 38.5 H ABG Total CO2 41.0 H ABG O2 Saturation 89.9 L ABG Base Excess 8.6 FiO2 12L Sodium Potassium Chloride Carbon Dioxide Anion Gap BUN Creatinine Est GFR ( Amer) Est GFR (MDRD) Non-Af Glucose Lactic Acid 1.0 Calcium Phosphorus Magnesium Total Bilirubin Direct Bilirubin Neonat Total Bilirubin Neonat Direct Bilirubin Neonat Indirect Bili AST ALT Alkaline Phosphatase Troponin I NT-Pro-B Natriuret Pep Total Protein Albumin c-ANCA Antibody Anti-Proteinase 3 Intrp Atypical p-ANCA p-ANCA Antibody Myeloperoxidase Ab Influenza A (Rapid) NEGATIVE Influenza B (Rapid) NEGATIVE 09/20/19 09/21/19 09/21/19 21:10 05:52 05:52 WBC 23.7 H RBC 4.15 L Hgb 13.5 Hct 40.4 MCV 97 MCH 32.4 MCHC 33.3 RDW 14.6 H Plt Count 278 Lymph % (Auto) Mcclain % (Auto) Eos % (Auto) Baso % (Auto) Absolute Neuts (auto) Absolute Lymphs (auto) Absolute Monos (auto) Absolute Eos (auto) Absolute Basos (auto) Total Counted Seg Neutrophils % Seg Neuts % (Manual) Band Neutrophils % Lymphocytes % (Manual) Atypical Lymphs % Monocytes % (Manual) Eosinophils % (Manual) Basophils % (Manual) Abs Neuts (Manual) Abs Lymphs (Manual) Abs Monocytes (Manual) Absolute Eos (Manual) Abs Basophils (Manual) Smudge Cells Toxic Granulation Toxic Vacuolation Platelet Comment Poikilocytosis Anisocytosis Ovalocytes Carbonic Acid 2.45 H HCO3/H2CO3 Ratio 17:1 ABG pH 7.34 L ABG pCO2 81.5 H* ABG pO2 83.0 ABG HCO3 43.4 H ABG Total CO2 45.9 H ABG O2 Saturation 95.1 ABG Base Excess 13.4 FiO2 60% Sodium 134.3 L Potassium 5.0 Chloride 92 L Carbon Dioxide 38 H Anion Gap 4 L BUN 8 Creatinine 0.35 L Est GFR ( Amer) > 60 Est GFR (MDRD) Non-Af > 60 Glucose 129 H Lactic Acid Calcium 8.8 Phosphorus Magnesium Total Bilirubin Direct Bilirubin Neonat Total Bilirubin Neonat Direct Bilirubin Neonat Indirect Bili AST ALT Alkaline Phosphatase Troponin I NT-Pro-B Natriuret Pep Total Protein Albumin c-ANCA Antibody Anti-Proteinase 3 Intrp Atypical p-ANCA p-ANCA Antibody Myeloperoxidase Ab Influenza A (Rapid) Influenza B (Rapid) 09/21/19 09/21/19 09/21/19 05:52 05:52 08:15 WBC RBC Hgb Hct MCV MCH MCHC RDW Plt Count Lymph % (Auto) Mcclain % (Auto) Eos % (Auto) Baso % (Auto) Absolute Neuts (auto) Absolute Lymphs (auto) Absolute Monos (auto) Absolute Eos (auto) Absolute Basos (auto) Total Counted Seg Neutrophils % Seg Neuts % (Manual) Band Neutrophils % Lymphocytes % (Manual) Atypical Lymphs % Monocytes % (Manual) Eosinophils % (Manual) Basophils % (Manual) Abs Neuts (Manual) Abs Lymphs (Manual) Abs Monocytes (Manual) Absolute Eos (Manual) Abs Basophils (Manual) Smudge Cells Toxic Granulation Toxic Vacuolation Platelet Comment Poikilocytosis Anisocytosis Ovalocytes Carbonic Acid 2.01 H HCO3/H2CO3 Ratio 20:1 ABG pH 7.40 ABG pCO2 66.9 H ABG pO2 63.8 L ABG HCO3 40.2 H ABG Total CO2 42.3 H ABG O2 Saturation 91.5 L ABG Base Excess 12.3 FiO2 9L Sodium Potassium Chloride Carbon Dioxide Anion Gap BUN Creatinine Est GFR ( Amer) Est GFR (MDRD) Non-Af Glucose Lactic Acid Calcium Phosphorus Magnesium Total Bilirubin Direct Bilirubin Neonat Total Bilirubin Neonat Direct Bilirubin Neonat Indirect Bili AST ALT Alkaline Phosphatase Troponin I NT-Pro-B Natriuret Pep 387 H Total Protein Albumin c-ANCA Antibody <1:20 Anti-Proteinase 3 Intrp <3.5 Atypical p-ANCA <1:20 p-ANCA Antibody <1:20 Myeloperoxidase Ab <9.0 Influenza A (Rapid) Influenza B (Rapid) 09/22/19 09/22/19 09/22/19 03:45 03:45 05:25 WBC 22.4 H RBC 4.01 L Hgb 12.7 L Hct 38.7 MCV 96 MCH 31.6 MCHC 32.8 RDW 14.5 H Plt Count 275 Lymph % (Auto) Not Reportable Mcclain % (Auto) Not Reportable Eos % (Auto) Not Reportable Baso % (Auto) Not Reportable Absolute Neuts (auto) Not Reportable Absolute Lymphs (auto) Not Reportable Absolute Monos (auto) Not Reportable Absolute Eos (auto) Not Reportable Absolute Basos (auto) Not Reportable Total Counted 100 Seg Neutrophils % Not Reportable Seg Neuts % (Manual) 90 H Band Neutrophils % Lymphocytes % (Manual) 3 L Atypical Lymphs % Monocytes % (Manual) 7 Eosinophils % (Manual) 0 Basophils % (Manual) 0 Abs Neuts (Manual) 20.2 H Abs Lymphs (Manual) 0.7 Abs Monocytes (Manual) 1.6 H Absolute Eos (Manual) 0.0 Abs Basophils (Manual) 0.0 Smudge Cells Toxic Granulation SLIGHT Toxic Vacuolation PRESENT Platelet Comment ADEQUATE Poikilocytosis SLIGHT Anisocytosis SLIGHT Ovalocytes SLIGHT Carbonic Acid Cancelled HCO3/H2CO3 Ratio Cancelled ABG pH Cancelled ABG pCO2 Cancelled ABG pO2 Cancelled ABG HCO3 Cancelled ABG Total CO2 Cancelled ABG O2 Saturation Cancelled ABG Base Excess Cancelled FiO2 Cancelled Sodium 135.4 L Potassium 4.8 Chloride 92 L Carbon Dioxide 39 H Anion Gap 4 L BUN 12 Creatinine 0.43 L Est GFR ( Amer) > 60 Est GFR (MDRD) Non-Af > 60 Glucose 122 H Lactic Acid Calcium 9.0 Phosphorus 3.7 Magnesium 1.9 Total Bilirubin Direct Bilirubin Neonat Total Bilirubin Neonat Direct Bilirubin Neonat Indirect Bili AST ALT Alkaline Phosphatase Troponin I NT-Pro-B Natriuret Pep Total Protein Albumin c-ANCA Antibody Anti-Proteinase 3 Intrp Atypical p-ANCA p-ANCA Antibody Myeloperoxidase Ab Influenza A (Rapid) Influenza B (Rapid) 09/23/19 09/23/19 03:45 03:45 WBC 16.4 H RBC 4.25 L Hgb 13.7 Hct 41.4 MCV 98 H MCH 32.2 MCHC 33.0 RDW 14.4 H Plt Count 335 Lymph % (Auto) 6.3 L Mcclain % (Auto) 2.4 L Eos % (Auto) 0.0 Baso % (Auto) 0.3 Absolute Neuts (auto) 14.9 H Absolute Lymphs (auto) 1.0 Absolute Monos (auto) 0.4 Absolute Eos (auto) 0.0 Absolute Basos (auto) 0.0 Total Counted Seg Neutrophils % 91.0 H Seg Neuts % (Manual) Band Neutrophils % Lymphocytes % (Manual) Atypical Lymphs % Monocytes % (Manual) Eosinophils % (Manual) Basophils % (Manual) Abs Neuts (Manual) Abs Lymphs (Manual) Abs Monocytes (Manual) Absolute Eos (Manual) Abs Basophils (Manual) Smudge Cells Toxic Granulation Toxic Vacuolation Platelet Comment Poikilocytosis Anisocytosis Ovalocytes Carbonic Acid HCO3/H2CO3 Ratio ABG pH ABG pCO2 ABG pO2 ABG HCO3 ABG Total CO2 ABG O2 Saturation ABG Base Excess FiO2 Sodium 137.7 Potassium 4.7 Chloride 93 L Carbon Dioxide 39 H Anion Gap 6 BUN 12 Creatinine 0.45 L Est GFR ( Amer) > 60 Est GFR (MDRD) Non-Af > 60 Glucose 147 H Lactic Acid Calcium 9.4 Phosphorus 4.7 H Magnesium 1.8 Total Bilirubin Direct Bilirubin Neonat Total Bilirubin Neonat Direct Bilirubin Neonat Indirect Bili AST ALT Alkaline Phosphatase Troponin I NT-Pro-B Natriuret Pep Total Protein Albumin c-ANCA Antibody Anti-Proteinase 3 Intrp Atypical p-ANCA p-ANCA Antibody Myeloperoxidase Ab Influenza A (Rapid) Influenza B (Rapid) 09/21/19 08:05 Speech Therapy Evaluation [REHAB] .ONCE 09/22/19 10:12 Speech Therapy Evaluation [REHAB] PRN Impressions Chest X-Ray 09/20/19 17:56 IMPRESSION: Chronic lung changes. Cannot exclude a minimal right pleural effusion. Chest X-Ray 09/20/19 19:19 IMPRESSION: Chronic lung changes. Cannot exclude a minimal right lower lobe pneumonia. There appears to be a minimal right pleural effusion. On this study, however there is the suggestion of an air-fluid level, raises the possibility of a hydropneumothorax. Chest/Abdomen CTA 09/21/19 08:00 IMPRESSION: 1. Scattered bilateral centrilobular nodular opacities that could represent part of a multifocal infection with endobronchial dissemination. 2. Reactive mediastinal and hilar adenopathy. 3. No pulmonary embolus. 4. Dilated main pulmonary artery (it measures up to 3.8 cm in diameter) - correlate for pulmonary hypertension. Chest X-Ray 09/21/19 10:00 IMPRESSION: Trace right pleural effusion. Modified Barium Swallow 09/23/19 00:00 IMPRESSION: LARYNGEAL PENETRATION, WITHOUT ASPIRATION, SEEN WITH THIN BARIUM. PLEASE SEE SPEECH PATHOLOGIST REPORT FOR OTHER FINDINGS AND RECOMMENDATIONS. 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 Chest x-ray showed possible right lower lobe infiltrates. Prior medical history includes pumonary embolism, CHF, CVA, COPD, respiraotry illness x1 month. Medications Yes Family at Bedside Yes Cognitive-Linguistic Function Functional Speech Intelligibility WNL Reported Baseline/Home Diet Regular,with Thin Liquids Current Nutritional Means PO Current PO Diet Regular,Thin liquids Current Symptoms Weight loss,Pneumonia,c/o Globus Sensation Pain Rating 0 Comment Patient described swallowing difficulty since patient self- extubated and was subsequently re-intubated with difficulty at [place] more than 1 year ago. The patient reports swallowing is getting worse, and reports losing 30 pounds in 3 months due to difficulty swallowing, especially "hard foods", such as meats. Patient states that he feels food get stuck, and then has to drink a lot of liquid to "get it down", states that he can feel liquid going around the food. He states that since he has to drink so much liquid, he fills up quickly. Patient denies any coughing with eating or drinking, denies any sensation of material "going the wrong way". Cranial nerve exam revealed mild left side asymmetry, not impacting function. The patient completed cup sips of water, single sip, double sip, and 3-sequential sips. On last trial, patient stated that he felt the water " staying in my throat". Voice was clear, no coughing seen. Patient completed trials of keyur cracker. Patient reported feeling cracker " sticking". Voice remained clear, no difficulty with breathing. Throat clear/ reswallow did not resolve sensation, sips of water resolved sensation. Functional swallow appears to be WNL. Patient may benefit from ENT or GI due to nature of swallowing concerns. Offered patient mechanical soft diet to assist with feeling of globus, patient declined. No additional follow up indicated at this time. 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 No Patient Registration Type [place] Insurance [facility] Chest X-Ray 09/20/19 17:56 IMPRESSION: Chronic lung changes. Cannot exclude a minimal right pleural effusion. Chest X-Ray 09/20/19 19:19 IMPRESSION: Chronic lung changes. Cannot exclude a minimal right lower lobe pneumonia. There appears to be a minimal right pleural effusion. On this study, however there is the suggestion of an air-fluid level, raises the possibility of a hydropneumothorax. Chest/Abdomen CTA 09/21/19 08:00 IMPRESSION: 1. Scattered bilateral centrilobular nodular opacities that could represent part of a multifocal infection with endobronchial dissemination. 2. Reactive mediastinal and hilar adenopathy. 3. No pulmonary embolus. 4. Dilated main pulmonary artery (it measures up to 3.8 cm in diameter) - correlate for pulmonary hypertension. Chest X-Ray 09/21/19 10:00 IMPRESSION: Trace right pleural effusion. Modified Barium Swallow 09/23/19 00:00 IMPRESSION: LARYNGEAL PENETRATION, WITHOUT ASPIRATION, SEEN WITH THIN BARIUM. PLEASE SEE SPEECH PATHOLOGIST REPORT FOR OTHER FINDINGS AND RECOMMENDATIONS. Plan Health Concerns: Continued tobacco use despite Oxygen use Weight loss requires workup Aspiration risk Pulmonary hypertension on anticoagulation for possible CTEPH Hypertension Plan of Treatment: Continue home O2 Stop smoking Smoking cessation counseling Follow up with PCP, Pulmonary, Cardiology Goals: Stop Smoking! Gain Weight Source of weight loss Critical Time: 38 Level of Care: MEDICAL Stroke Is this a Stroke Patient?: No Acute Heart Failure - Is this a Heart Failure Patient?: No Documentation of LVEF assessment?: Yes a) Discharged on ACEI?: Yes d) Discharged on evidence-based Beta abdoulaye(carvedilol, sustained release metoprolol succinate, or bisoprolol)?: Yes e) For LVEF <35%, discharged on Aldosterone antagonist?: N/A (LVEF > or = 35%) 3. Anticoagulant therapy for permanect/persistent/paraoxysmal Afib or Aflutter: Yes - For CTEPH Follow-up Appointment scheduled within 7 days?: Yes
[2019-09-23] MEDS ORDERED: METHYLPREDNISOLONE DOSEPAK (4 MG/TAB) 21 TAB/DSPK PO SCH (13:15)
[2019-09-23 13:23] VITALS: BP 143/103
--- NOTE | 2019-09-23 15:15 | RADIOLOGY REPORT (SQ) ---
EXAM DESCRIPTION: BARIUM SWALLOW ESOPHAGUS COMPLETED DATE/TIME: 09/23/2019 9:30 am REASON FOR STUDY: dysphagia COMPARISON: None. TECHNIQUE: Under fluoroscopic guidance, patient ingested effervescent granules followed by thick and thin barium. Fluoroscopic spot images and routine radiographic images acquired and stored on PACS. 12 MM BARIUM TABLET GIVEN: Barium tablet passed easily through the esophagus and into the stomach wit hout delay. LIMITATIONS: None. FLUOROSCOPY TIME: FLUORO TIME: 1.33 minutes 5 images saved to PACS. FINDINGS: NEUROMUSCULAR COORDINATION OF SWALLOW: Normal. No aspiration. ESOPHAGEAL MOTILITY: Normal peristalsis. Mild tertiary contractions in the distal esophagus. ESOPHAGEAL MUCOSA: Normal mucosa without masses or ulceration. GASTRO-ESOPHAGEAL JUNCTION: No hiatal hernia or reflux. NON-GI TRACT STRUCTURES: No significant finding. OTHER: No other significant finding. IMPRESSION: NORMAL DOUBLE CONTRAST BARIUM SWALLOW. RECOMMENDATION: None COMMENT: None Quality ID [id number]: Final reports for procedures using fluoroscopy that document radiation exposure tiffany bailey, or exposure time and number of fluorographic images (if radiation exposure indices are not avail able) TECHNICAL DOCUMENTATION: JOB ID: [id number] [employer]- All Rights Reserved Reading location - IP/workstation name: [email or web address]
== END 2019-09-23 13:40 | disposition home or self-care (01) | DRG 189 ==
LOC: ER 17:42 → EH 23:45 → UNDOADMIN 23:45 → ICU 09-21 02:25 → EH 09-21 02:25
PROVIDERS: ADMIT Internal Medicine Critical Care Medicine; ATTEND Internal Medicine Critical Care Medicine
PROC: 5A09457 Assistance with Respiratory Ventilation, 24-96 Consecutive Hours, Continuous Positive Airway Pressure (ICD-10-PCS; principal; 2019-09-20)
DX: J96.21 Acute and chronic respiratory failure with hypoxia (principal); A41.9 Sepsis, unspecified organism; J18.9 Pneumonia, unspecified organism; J44.1 Chronic obstructive pulmonary disease with (acute) exacerbation; J45.901 Unspecified asthma with (acute) exacerbation; R64 Cachexia; F11.20 Opioid dependence, uncomplicated; J96.22 Acute and chronic respiratory failure with hypercapnia; I50.9 Heart failure, unspecified; I11.0 Hypertensive heart disease with heart failure; I27.20 Pulmonary hypertension, unspecified; R13.10 Dysphagia, unspecified; F31.9 Bipolar disorder, unspecified; F17.210 Nicotine dependence, cigarettes, uncomplicated; Z99.81 Dependence on supplemental oxygen; Z79.01 Long term (current) use of anticoagulants; Z79.51 Long term (current) use of inhaled steroids; Z79.899 Other long term (current) drug therapy; Z86.718 Personal history of other venous thrombosis and embolism; Z86.711 Personal history of pulmonary embolism; Z86.73 Personal history of transient ischemic attack (TIA), and cerebral infarction without residual deficits; Z68.20 Body mass index [BMI] 20.0-20.9, adult
CPT/HCPCS: 36415; 71045; 71275; 74220; 74230; 80048; 80053; 81332; 82803; 83516; 83605; 83735; 83880; 84100; 84484; 85025; 85027; 86256; 87040; 87070; 87205; 87252; 87804; 93005; 93010; 93306; 94660; 96365; 96366; 96368; 96375; 99239; 99291; 99292; J1644; J1956; J2920; J2930; J3475; J3490; J7030; J7620

== ENCOUNTER 2019-12-06 08:15 | Inpatient (IN) | payer MEDICAID ==
[2019-12-06] MEDS ORDERED: METHYLPREDNISOLONE INJ 125 MG/2 ML SDV IV ONE (08:53)
[2019-12-06] MEDS ORDERED: IPRATROPIUM/ALBUTEROL 0.5-2.5 MG/3 ML AMPUL NEB ONE (08:53)
[2019-12-06] MEDS: ALBUTEROL SULFATE 0.083% NEB 2.5 MG/3 ML AMPUL NEB SCH ×2 (09:06→09:26)
[2019-12-06 09:51] LABS: ABSOLUTE EOSINOPHILS # (AUTO) 0.3 10^3/uL (0.0-0.6); ABSOLUTE LYMPHOCYTES (AUTO) 2.1 10^3/uL (0.5-4.7); ABSOLUTE MONOCYTES (AUTO) 2.2 10^3/uL (0.1-1.4); ABSOLUTE NEUT (AUTO) 14.8 10^3/uL (1.7-8.2); BASOPHILS % (AUTO) 0.2 % (0-2); EOSINOPHILS % (AUTO) 1.4 % (0-6); HEMATOCRIT 41.6 % (37.9-51.0); LYMPHOCYTES % (AUTO) 10.6 % (13-45); MEAN CORPUSCULAR HEMOGLOBIN 32.6 pg (27.0-33.4); MEAN CORPUSCULAR HGB CONC 33.6 g/dL (32.0-36.0); MEAN CORPUSCULAR VOLUME 97 fl (80-97); MONOCYTES % (AUTO) 11.4 % (3-13); PLATELET COUNT 287 10^3/uL (150-450); RED BLOOD COUNT 4.28 10^6/uL (4.35-5.55); RED CELL DISTRIBUTION WIDTH 13.6 % (11.5-14.0); SEGMENTED NEUTROPHILS % (AUTO) 76.4 % (42-78); TOTAL CELLS COUNTED % (AUTO) 100 %; WHITE BLOOD COUNT 19.4 10^3/uL (4.0-10.5)
--- NOTE | 2019-12-06 09:55 | RADIOLOGY REPORT (SQ) ---
EXAM DESCRIPTION: CHEST SINGLE VIEW COMPLETED DATE/TIME: 12/06/2019 9:36 am REASON FOR STUDY: difficulty breathing, decreased 02 sat COMPARISON: CT chest 09/21/2019 AP chest 09/21/2019, 09/20/2019 EXAM PARAMETERS: NUMBER OF VIEWS: One view. TECHNIQUE: Single frontal radiographic view of the chest acquired. RADIATION DOSE: NA LIMITATIONS: None. FINDINGS: LUNGS AND PLEURA: Subtle reticulonodular infiltrate in the mid lungs perihilar region, que stion atypical pneumonia. Early or developing pulmonary edema could mimic this appearance. No pleural effusion. No pneumothorax. MEDIASTINUM AND HILAR STRUCTURES: No masses. Contour normal. HEART AND VASCULAR STRUCTURES: Heart normal in size. Normal vasculature. BONES: No acute findings. HARDWARE: None in the chest. OTHER: No other significant finding. IMPRESSION: Subtle reticulonodular infiltrate in the perihilar regions, question early or developing pneumonia versus pulmonary edema TECHNICAL DOCUMENTATION: JOB ID: [id number] 2011 [employer]- All Rights Reserved Reading location - IP/workstation name: [email or web address]
[2019-12-06 10:00] LABS: ALBUMIN 3.7 g/dL (3.5-5.0); ALKALINE PHOSPHATASE 99 U/L (38-126); ASPARTATE AMINO TRANSFERASE 19 U/L (17-59); BILIRUBIN,DIRECT 0.3 mg/dL (0.0-0.4); BILIRUBIN,TOTAL 0.5 mg/dL (0.2-1.3); BLOOD UREA NITROGEN 9 mg/dL (7-20); CALCIUM 9.4 mg/dL (8.4-10.2); CHLORIDE 88 mmol/L (98-107); GLUCOSE 126 mg/dL (75-110); POTASSIUM 4.1 mmol/L (3.6-5.0); TOTAL PROTEIN 6.5 g/dL (6.3-8.2)
[2019-12-06 10:06] LABS: ANION GAP 9 (5-19); CARBON DIOXIDE 39 mmol/L (22-30)
[2019-12-06] MEDS ORDERED: ALBUTEROL SULFATE 0.083% NEB 2.5 MG/3 ML AMPUL NEB ONE (10:24)
[2019-12-06] MEDS ORDERED: AZITHROMYCIN 250 MG TABLET PO ONE (10:25)
[2019-12-06] MEDS ORDERED: CEFTRIAXONE 2 GM/D5W RTU 2 GM/50 ML RTUPB IV ONE (10:25)
[2019-12-06 10:26] LABS: INTERNATIONAL RATION (INR) 1.67; PROTHROMBIN TIME 19.9 SEC (11.4-15.4)
[2019-12-06 10:46] LABS: VENOUS BLOOD BASE EXCESS 11.5 mmol/L; VENOUS BLOOD HCO3 41.3 mmol/L (20-32); VENOUS BLOOD PH 7.33 (7.30-7.42)
[2019-12-06 11:08] LABS: ARTERIAL BLOOD BASE EXCESS 12.7 mmol/L; ARTERIAL BLOOD H2CO3 2.38 mmol/L (1.05-1.35); ARTERIAL BLOOD HCO3 42.2 mmol/L (20-24); ARTERIAL BLOOD O2 SATURATION 92.5 % (94-98); ARTERIAL BLOOD PH 7.35 (7.35-7.45); ARTERIAL BLOOD PO2 70.7 mmHg (80-100); ARTERIAL BLOOD TOTAL CO2 44.7 mmol/L (23-27)
[2019-12-06 11:09] LABS: ARTERIAL BLOOD FIO2 45%
--- NOTE | 2019-12-06 11:29 | ER Document Report ---
ED General - General Chief Complaint: Breathing Difficulty Stated Complaint: DIFFICULTY BREATHING Time Seen by Provider: 12/06/19 10:12 Primary Care Provider: KIT PARSON MD [Primary Care Provider] - Follow up as needed Mode of Arrival: Medic Information source: Patient TRAVEL OUTSIDE OF THE [place] IN LAST 30 DAYS: No - HPI Notes: Patient presents with several days of increasing shortness of breath. He is also been sweating. He states that any exertion causes him to be significantly short of breath. He states he has a history of COPD and CHF. He states he has been using nebulizers at home with no relief. He states he does not currently have any steroids. He states he is still smoking. Patient's shortness of br eath is been severe and constant. Worse with exertion better with rest. It does radiate throughout his body. Patient has had fever and chills as well. - Related Data Allergies/Adverse Reactions: disulfiram [From Antabuse] Allergy (Verified 12/06/19 08:31) imipramine [Imipramine] Allergy (Verified 12/06/19 08:31) tramadol Allergy (Verified 12/06/19 08:31) Past Medical History - General Information source: Patient - Social History Smoking Status: Current Every Day Smoker Chew tobacco use (# tins/day): No Frequency of alcohol use: Daily 1 beer Drug Abuse: None Family History: COPD, Hypertension Patient has suicidal ideation: No Patient has homicidal ideation: No - Past Medical History Cardiac Medical History: Reports: Hx Congestive Heart Failure, Hx DVT, Hx Hypertension, Hx Pulmonary Embolism Denies: Hx Coronary Artery Disease, Hx Heart Attack Pulmonary Medical History: Reports: Hx Asthma, Hx Bronchitis, Hx COPD Denies: Hx Pneumonia Neurological Medical History: Reports: Hx Cerebrovascular Accident. Denies: Hx Seizures Renal/ Medical History: Denies: Hx Peritoneal Dialysis Musculoskeletal Medical History: Denies Hx Arthritis Psychiatric Medical History: Reports: Hx Bipolar Disorder, Hx Depression Past Surgical History: Reports: Hx Abdominal Surgery - hernia x 3, Hx Orthopedic Surgery - left knee - Immunizations Hx Diphtheria, Pertussis, Tetanus Vaccination: No Review of Systems - Review of Systems Constitutional: Chills, Fever Cardiovascular: Chest pain, Palpitations Respiratory: Cough, Short of breath -: Yes All other systems reviewed and negative Physical Exam - Vital signs Vitals: Temp Pulse Resp BP Pulse Ox 98.7 F 114 H 16 143/85 H 81 L 12/06/19 08:20 12/06/19 08:20 12/06/19 08:20 12/06/19 08:20 12/06/19 08:20 Interpretation: Tachycardic, Hypoxic - General General appearance: Alert In distress: Mild - HEENT Head: Normocephalic, Atraumatic Eyes: Normal Pupils: PERRL - Respiratory Respiratory status: Respiratory distress - Mild to moderate Chest status: Nontender Breath sounds: Decreased air movement, Wheezing Chest palpation: Normal - Cardiovascular Rhythm: Tachycardia Heart sounds: Normal auscultation Murmur: No - Abdominal Inspection: Normal Distension: No distension Bowel sounds: Normal Tenderness: Nontender Organomegaly: No organomegaly - Back Back: Normal, Nontender - Extremities General upper extremity: Normal inspection, Nontender, Normal color, Normal ROM, Normal temperature General lower extremity: Normal inspection, Nontender, Normal color, Normal ROM, Normal temperature, Normal weight bearing. No: Steven's sign - Neurological Neuro grossly intact: Yes Cognition: Normal Orientation: AAOx4 Malcolm Coma Scale Eye Opening: Spontaneous Malcolm Coma Scale Verbal: Oriented Malcolm Coma Scale Motor: Obeys Commands [place] Coma Scale Total: 15 Speech: Normal Motor strength normal: LUE, RUE, LLE, RLE Sensory: Normal - Psychological Associated symptoms: Normal affect, Normal mood - Skin Skin Temperature: Warm Skin Moisture: Moist Skin Color: Normal Course - Re-evaluation Re-evalutation: 12/06/19 11:28 Patient presents with significant shortness of breath. He is on home oxygen at 2 L. Here on 2 L he is only 85%. He has been placed on BiPAP given nebulizer steroids and antibiotics. He is doing significantly better now. He will be admitted. Patient's lactate is normal at this time. Blood gas shows patient to have some baseline CO2 retention and hypoxia. 12/06/19 11:29 - Vital Signs Vital signs: Temp Pulse Resp BP Pulse Ox 98.7 F 114 H 24 H 120/85 93 12/06/19 08:20 12/06/19 08:20 12/06/19 11:01 12/06/19 11:01 12/06/19 11:01 - Laboratory Result Diagrams: 12/06/19 08:40 12/06/19 08:40 Laboratory results interpreted by me: 12/06/19 12/06/19 12/06/19 08:40 08:40 08:48 WBC 19.4 H RBC 4.28 L Lymph % (Auto) 10.6 L Absolute Neuts (auto) 14.8 H Absolute Monos (auto) 2.2 H PT 19.9 H Carbonic Acid ABG pCO2 ABG pO2 ABG HCO3 ABG Total CO2 ABG O2 Saturation VBG pCO2 VBG HCO3 Sodium 136.3 L Chloride 88 L Carbon Dioxide 39 H Creatinine 0.35 L Glucose 126 H 12/06/19 12/06/19 10:20 10:55 WBC RBC Lymph % (Auto) Absolute Neuts (auto) Absolute Monos (auto) PT Carbonic Acid 2.38 H ABG pCO2 79.0 H* ABG pO2 70.7 L ABG HCO3 42.2 H ABG Total CO2 44.7 H ABG O2 Saturation 92.5 L VBG pCO2 81.0 H* VBG HCO3 41.3 H Sodium Chloride Carbon Dioxide Creatinine Glucose - Diagnostic Test Radiology reviewed: Image reviewed, Reports reviewed Critical Care Note - Critical Care Note Total time excluding time spent on procedures (mins): 50 Comments: Approximately 50 minutes were spent managing this patient's hypoxic pneumonia presentation. This was spent in multiple conversations with consultants, conversations with patient, reviewing old records, and reviewing laboratories and images. Discharge - Discharge Clinical Impression: Hypoxia, Oxygen dependent, Tobacco dependence Pneumonia Qualifiers: Pneumonia type: due to unspecified organism Laterality: bilateral Lung locatio n: unspecified part of lung Qualified Code(s): J18.9 - Pneumonia, unspecified organism Condition: Serious Disposition: ADMITTED INPATIENT Admitting Provider: Adam (Hospitalist) Unit Admitted: IMCU Referrals: KIT PARSON MD [Primary Care Provider] - Follow up as needed
[2019-12-06] MEDS ORDERED: ACETAMINOPHEN 325 MG TABLET PO PRN (11:50)
[2019-12-06] MEDS ORDERED: MAG HYDROX/AL HYDROX/SIMETH SUSP 30 ML UDCUP PO PRN (11:50)
[2019-12-06] MEDS ORDERED: ONDANSETRON HCL INJ/PF 4 MG/2 ML SDV IV PRN (11:50)
[2019-12-06] MEDS ORDERED: IPRATROPIUM/ALBUTEROL 0.5-2.5 MG/3 ML AMPUL NEB PRN (11:50)
[2019-12-06] MEDS ORDERED: FUROSEMIDE 20 MG TABLET PO SCH (12:00)
[2019-12-06] MEDS ORDERED: LISINOPRIL 10 MG TABLET PO SCH (12:00)
--- NOTE | 2019-12-06 12:13 | PDOC H&P ---
History of Present Illness Admission Date/PCP: 12/06/19 11:39 KIT PARSON MD Patient complains of: Shortness of breath History of Present Illness: ANTONIA HUNTER III is a 44 year old male with a history of COPD, pulmonary hypertension, DVT, CHF, hypertension, who presents to the hospital with complaints of dyspnea for the past few days. Patient endorses recent sick exposure to somebody who thinks may have had the flu. Subsequently developed low-grade fever, rhinorrhea, cough with production of greenish sputum and headache. Denied any myalgias. On Thursday last week, patient stated developed shortness of breath which has progressed over the past few days prompting evaluation in the hospital. In the emergency department chest x-ray reviewed some questionable finding of pneumonia. Patient was also significantly tachypneic and was placed on the BiPAP. Patient received ceftriaxone and azithromycin in the ER and referred for hospitalist admission. Past Medical History Cardiac Medical History: Reports: Congestive Heart Failure, DVT, Hypertension, Pulmonary Embolism Denies: Coronary Artery Disease, Myocardial Infarction Pulmonary Medical History: Reports: Asthma, Bronchitis, Chronic Obstructive Pulmonary Disease (COPD) Denies: Pneumonia Neurological Medical History: Denies: Seizures Musculoskeltal Medical History: Denies: Arthritis Psychiatric Medical History: Reports: Bipolar Disorder, Depression Hematology: Denies: Anemia Past Surgical History Past Surgical History: Reports: Orthopedic Surgery - left knee Social History Information Source: Patient Lives with: Spouse/Significant other Smoking Status: Current Every Day Smoker Electronic Cigarette use?: No Frequency of Alcohol Use: None Drugs: Cocaine, Heroin - Remote history Hx Prescription Drug Abuse: Yes - Home RX for oxycodone - Advance Directive Resuscitation Status: Do Not Intubate - Patient confirmed his wish in presence of his significant other. Okay with CPR. Family History Family History: COPD, CVA, DM, Hypertension Parental Family History Reviewed: Yes Children Family History Reviewed: NA Sibling(s) Family History Reviewed.: Yes Medication/Allergy Home Medications: Albuterol Sulfate [Proair HFA Inhalation Aerosol 8.5 gm MDI] 2 puff IH Q6HP PRN 09/21/19 Fluticasone/Salmeterol [Advair 250-50 Diskus 14 Dose/Diskus] 1 puff IH BID 09/21/19 Furosemide [Lasix 20 mg Tablet] 10 mg PO DAILY 09/21/19 Lisinopril [Zestril] 10 mg PO QAM 09/21/19 Methadone HCl [Dolophine 10 mg Tablet] 50 mg PO QAM 09/21/19 Metoprolol Tartrate [Lopressor 25 mg Tablet] 12.5 mg PO BID 09/21/19 Rivaroxaban [Xarelto] 20 mg PO DAILY 09/21/19 Tiotropium [place] [Spiriva Handihaler 5 Cap/Kit (18 Mcg/Cap)] 1 cap IH DAILY 09/21/19 Sildenafil Citrate 100 mg PO DAILY 12/06/19 Allergies/Adverse Reactions: disulfiram [From Antabuse] Allergy (Verified 12/06/19 08:31) imipramine [Imipramine] Allergy (Verified 12/06/19 08:31) tramadol Allergy (Verified 12/06/19 08:31) Review of Systems Constitutional: PRESENT: anorexia Eyes: ABSENT: visual disturbances Nose, Mouth, and Throat: PRESENT: headache(s) Cardiovascular: PRESENT: dyspnea on exertion. ABSENT: chest pain, edema Respiratory: PRESENT: cough, dyspnea, sputum Gastrointestinal: ABSENT: abdominal pain, nausea, vomiting Genitourinary: ABSENT: nocturia Musculoskeletal: ABSENT: back pain Neurological: ABSENT: confusion Psychiatric: ABSENT: anxiety Allergic/Immunologic: PRESENT: other - rhinorrhea Physical Exam Vital Signs: Temp Pulse Resp BP Pulse Ox 98.7 F 114 H 24 H 120/85 93 12/06/19 08:20 12/06/19 08:20 12/06/19 11:01 12/06/19 11:01 12/06/19 11:01 Intake & Output 12/05/19 12/06/19 12/07/19 06:59 06:59 06:59 Intake Total 50 Balance 50 Weight 65.6 kg General appearance: PRESENT: no acute distress, cooperative, thin Head exam: PRESENT: normocephalic Eye exam: PRESENT: EOMI Mouth exam: PRESENT: neck supple Neck exam: ABSENT: JVD Respiratory exam: PRESENT: symmetrical, tachypnea, wheezes. ABSENT: retraction, unlabored Cardiovascular exam: PRESENT: RRR, +S1, +S2. ABSENT: tachycardia GI/Abdominal exam: PRESENT: soft. ABSENT: rebound, rigid, tenderness Extremities exam: ABSENT: pedal edema, +1 edema, +2 edema Neurological exam: PRESENT: alert, awake, oriented to person, oriented to place, oriented to time, oriented to situation Psychiatric exam: PRESENT: anxious Focused psych exam: ABSENT: pressured speech Skin exam: ABSENT: jaundice Results Laboratory Results: 12/06/19 08:40 12/06/19 08:40 12/06/19 12/06/19 12/06/19 08:40 08:40 10:20 WBC 19.4 H RBC 4.28 L Hgb 14.0 Hct 41.6 MCV 97 MCH 32.6 MCHC 33.6 RDW 13.6 Plt Count 287 Seg Neutrophils % 76.4 Carbonic Acid HCO3/H2CO3 Ratio ABG pH ABG pCO2 ABG pO2 ABG HCO3 ABG O2 Saturation ABG Base Excess VBG pH 7.33 VBG pCO2 81.0 H* VBG HCO3 41.3 H VBG Base Excess 11.5 FiO2 Sodium 136.3 L Potassium 4.1 Chloride 88 L Carbon Dioxide 39 H Anion Gap 9 BUN 9 Creatinine 0.35 L Est GFR ( Amer) > 60 Glucose 126 H Lactic Acid Calcium 9.4 Total Bilirubin 0.5 AST 19 Alkaline Phosphatase 99 Total Protein 6.5 Albumin 3.7 12/06/19 12/06/19 10:20 10:55 WBC RBC Hgb Hct MCV MCH MCHC RDW Plt Count Seg Neutrophils % Carbonic Acid 2.38 H HCO3/H2CO3 Ratio 17:1 ABG pH 7.35 ABG pCO2 79.0 H* ABG pO2 70.7 L ABG HCO3 42.2 H ABG O2 Saturation 92.5 L ABG Base Excess 12.7 VBG pH VBG pCO2 VBG HCO3 VBG Base Excess FiO2 45% Sodium Potassium Chloride Carbon Dioxide Anion Gap BUN Creatinine Est GFR ( Amer) Glucose Lactic Acid 1.0 Calcium Total Bilirubin AST Alkaline Phosphatase Total Protein Albumin Impressions: Chest X-Ray 12/06/19 08:53 IMPRESSION: Subtle reticulonodular infiltrate in the perihilar regions, question early or developing pneumonia versus pulmonary edema Assessment and Plan - Diagnosis (1) COPD with acute exacerbation Is this a current diagnosis for this admission?: Yes Plan: I have reviewed chest x-ray image and compared to the prior one from September and there does not appear to be any significant pneumonia/consolidation. Patient already wheezing. We will treat for COPD exacerbation likely exacerbated by recent viral URI Frequent nebulizers, azithromycin, Solu-Medrol. Continue patient's LABA/LAMA/I CS. (2) URI (upper respiratory infection) Qualifiers: URI type: unspecified viral URI Qualified Code(s): J06.9 - Acute upper resp iratory infection, unspecified Is this a current diagnosis for this admission?: Yes Plan: Check influenza. Flonase. Check sputum culture. (3) Chronic respiratory failure with hypoxia and hypercapnia Is this a current diagnosis for this admission?: Yes Plan: Likely secondary to COPD. Uses 2 L nasal cannula at home. ABG showing respiratory acidosis with hypercapnia and metabolic compensation. Nocturnal BiPAP while inpatient. (4) Pulmonary hypertension Is this a current diagnosis for this admission?: Yes Plan: Continue oxygen. Does not appear fluid overloaded at this time. (5) History of DVT (deep vein thrombosis) Is this a current diagnosis for this admission?: Yes Plan: Continue Xarelto (6) Tobacco abuse counseling Is this a current diagnosis for this admission?: Yes Plan: Counseled on smoking cessation. Patient is daily smoker. Will give nicotine r eplacement. Patient has declined pills as he states that Chantix gave him a bad reaction and he does not want bupropion because he believes it may mess with his bipolar disorder. - Time Time Spent with patient: 35 or more minutes
[2019-12-06] MEDS ORDERED: NICOTINE 21 MG/24 HR PATCH.TD24 TD SCH (13:00)
[2019-12-06] MEDS: IPRATROPIUM/ALBUTEROL 0.5-2.5 MG/3 ML AMPUL NEB SCH ×2 (14:05→19:53)
[2019-12-06] MEDS ORDERED: RIVAROXABAN 10 MG TABLET PO SCH (17:00)
[2019-12-06] MEDS ORDERED: METOPROLOL TARTRATE 25 MG TABLET PO SCH (22:00)
[2019-12-06] MEDS ORDERED: METHYLPREDNISOLONE INJ 40 MG/1 ML SDV IV SCH (22:00)
[2019-12-06] MEDS ORDERED: FLUTICASONE NASAL SPRAY 50 MCG/SPRY 120 SPRAY/16 GM NASL SCH (22:00)
[2019-12-07] MEDS: IPRATROPIUM/ALBUTEROL 0.5-2.5 MG/3 ML AMPUL NEB SCH ×2 (02:19→08:40)
[2019-12-07 04:59] LABS: ABSOLUTE LYMPHOCYTES (AUTO) 0.9 10^3/uL (0.5-4.7); ABSOLUTE MONOCYTES (AUTO) 0.7 10^3/uL (0.1-1.4); ABSOLUTE NEUT (AUTO) 12.1 10^3/uL (1.7-8.2); BASOPHILS % (AUTO) 0.2 % (0-2); HEMATOCRIT 40.4 % (37.9-51.0); HEMOGLOBIN 13.4 g/dL (13.5-17.0); LYMPHOCYTES % (AUTO) 6.5 % (13-45); MEAN CORPUSCULAR HEMOGLOBIN 32.4 pg (27.0-33.4); MEAN CORPUSCULAR HGB CONC 33.1 g/dL (32.0-36.0); MEAN CORPUSCULAR VOLUME 98 fl (80-97); MONOCYTES % (AUTO) 5.4 % (3-13); PLATELET COUNT 289 10^3/uL (150-450); RED BLOOD COUNT 4.14 10^6/uL (4.35-5.55); RED CELL DISTRIBUTION WIDTH 13.6 % (11.5-14.0); SEGMENTED NEUTROPHILS % (AUTO) 87.9 % (42-78); TOTAL CELLS COUNTED % (AUTO) 100 %; WHITE BLOOD COUNT 13.8 10^3/uL (4.0-10.5)
[2019-12-07 05:13] LABS: BLOOD UREA NITROGEN 14 mg/dL (7-20); CALCIUM 9.6 mg/dL (8.4-10.2); CHLORIDE 90 mmol/L (98-107); POTASSIUM 4.5 mmol/L (3.6-5.0)
[2019-12-07 05:21] LABS: ANION GAP 10 (5-19); CARBON DIOXIDE 38 mmol/L (22-30); GLUCOSE 203 mg/dL (75-110)
[2019-12-07] MEDS ORDERED: METHADONE HCL 10 MG TABLET PO SCH (08:00)
[2019-12-07 08:48] VITALS: BP 118/70
[2019-12-07] MEDS ORDERED: AZITHROMYCIN 250 MG TABLET PO SCH (10:00)
[2019-12-07] MEDS ORDERED: SILDENAFIL CITRATE 100 MG PO SCH (10:00)
[2019-12-07] MEDS ORDERED: FLUTICASONE/UMECLIDIN/VILANTER 100-62.5-25 MCG/DOSE IH SCH (10:00)
--- NOTE | 2019-12-07 10:05 | PDOC DISCHARGE SUMMARY ---
Impression - Admit/DC Date/PCP Admission Date/Primary Care Provider: 12/06/19 11:39 KIT PARSON MD Discharge Date: 12/07/19 - Patient left AGAINST MEDICAL ADVICE - Discharge Diagnosis (1) Acute and chronic respiratory failure with hypoxia Is this a current diagnosis for this admission?: Yes (2) COPD with acute exacerbation Is this a current diagnosis for this admission?: Yes - Additional Information Resuscitation Status: Do Not Intubate - Patient confirmed his wish in presence of his significant other. Okay with CPR. Referrals: KIT PARSON MD [Primary Care Provider] - 12/13/19 10:15 am Home Medications: Albuterol Sulfate [Proair HFA Inhalation Aerosol 8.5 gm MDI] 2 puff IH Q6HP PRN 09/21/19 Fluticasone/Salmeterol [Advair 250-50 Diskus 14 Dose/Diskus] 1 puff IH DAILY 09/21/19 Furosemide [Lasix 20 mg Tablet] 10 mg PO DAILYP PRN 09/21/19 Lisinopril [Zestril] 10 mg PO QAM 09/21/19 Metoprolol Tartrate [Lopressor 25 mg Tablet] 12.5 mg PO BID 09/21/19 Rivaroxaban [Xarelto] 20 mg PO DAILY 09/21/[address] [place] [Spiriva Handihaler 5 Cap/Kit (18 Mcg/Cap)] 1 cap IH DAILY 09/21/19 Methadone HCl 60 mg PO QAM 12/06/19 Sildenafil Citrate 100 mg PO DAILY 12/06/19 History of Present Illiness History of Present Illness: ANTONIA ELIZALDEIELD BRENDAN is a 44 year old male Hospital Course Hospital Course: Patient was admitted on December 06. I was informed this morning the patient was very upset about his diet which is apparently cardiac. He was requesting to be placed on a regular diet. Patient refused to listen to any explanation and was very upset. He demanded to sign out AGAINST MEDICAL ADVICE and despite efforts to change his mind he persisted and signed out AGAINST MEDICAL ADVICE. Patient left with his spouse. Physical Exam Vital Signs: Temp Pulse Resp BP Pulse Ox 97.3 F 57 L 18 118/70 99 12/07/19 07:55 12/07/19 07:55 12/07/19 07:55 12/07/19 07:55 12/07/19 07:55 Intake & Output 12/06/19 12/07/19 12/08/19 06:59 06:59 06:59 Intake Total 370 Balance 370 Weight 60.7 kg Results Laboratory Results: WBC 13.8 10^3/uL (4.0-10.5) H 12/07/19 04:31 RBC 4.14 10^6/uL (4.35-5.55) L 12/07/19 04:31 Hgb 13.4 g/dL (13.5-17.0) L 12/07/19 04:31 Hct 40.4 % (37.9-51.0) 12/07/19 04:31 MCV 98 fl (80-97) H 12/07/19 04:31 MCH 32.4 pg (27.0-33.4) 12/07/19 04:31 MCHC 33.1 g/dL (32.0-36.0) 12/07/19 04:31 RDW 13.6 % (11.5-14.0) 12/07/19 04:31 Plt Count 289 10^3/uL (150-450) 12/07/19 04:31 Lymph % (Auto) 6.5 % (13-45) L 12/07/19 04:31 [place] % (Auto) 5.4 % (3-13) 12/07/19 04:31 Eos % (Auto) 0.0 % (0-6) 12/07/19 04:31 Baso % (Auto) 0.2 % (0-2) 12/07/19 04:31 Absolute Neuts (auto) 12.1 10^3/uL (1.7-8.2) H 12/07/19 04:31 Absolute Lymphs (auto) 0.9 10^3/uL (0.5-4.7) 12/07/19 04:31 Absolute Monos (auto) 0.7 10^3/uL (0.1-1.4) 12/07/19 04:31 Absolute Eos (auto) 0.0 10^3/uL (0.0-0.6) 12/07/19 04:31 Absolute Basos (auto) 0.0 10^3/uL (0.0-0.2) 12/07/19 04:31 Seg Neutrophils % 87.9 % (42-78) H 12/07/19 04:31 PT 19.9 SEC (11.4-15.4) H 12/06/19 08:48 INR 1.67 12/06/19 08:48 Carbonic Acid 2.38 mmol/L (1.05-1.35) H 12/06/19 10:55 HCO3/H2CO3 Ratio 17:1 12/06/19 10:55 ABG pH 7.35 (7.35-7.45) 12/06/19 10:55 ABG pCO2 79.0 mmHg (35-45) H* 12/06/19 10:55 ABG pO2 70.7 mmHg (80-100) L 12/06/19 10:55 ABG HCO3 42.2 mmol/L (20-24) H 12/06/19 10:55 ABG Total CO2 44.7 mmol/L (23-27) H 12/06/19 10:55 ABG O2 Saturation 92.5 % (94-98) L 12/06/19 10:55 ABG Base Excess 12.7 mmol/L 12/06/19 10:55 VBG pH 7.33 (7.30-7.42) 12/06/19 10:20 VBG pCO2 81.0 mmHg (35-63) H* 12/06/19 10:20 VBG HCO3 41.3 mmol/L (20-32) H 12/06/19 10:20 VBG Base Excess 11.5 mmol/L 12/06/19 10:20 FiO2 45% 12/06/19 10:55 Sodium 137.7 mmol/L (137-145) 12/07/19 04:31 Potassium 4.5 mmol/L (3.6-5.0) 12/07/19 04:31 Chloride 90 mmol/L (98-107) L 12/07/19 04:31 Carbon Dioxide 38 mmol/L (22-30) H 12/07/19 04:31 Anion Gap 10 (5-19) 12/07/19 04:31 BUN 14 mg/dL (7-20) 12/07/19 04:31 Creatinine 0.37 mg/dL (0.52-1.25) L 12/07/19 04:31 Est GFR ( Amer) > 60 (>60) 12/07/19 04:31 Est GFR (MDRD) Non-Af > 60 (>60) 12/07/19 04:31 Glucose 203 mg/dL (75-110) H 12/07/19 04:31 Lactic Acid 2.7 mmol/L (0.7-2.1) H 12/07/19 04:31 Calcium 9.6 mg/dL (8.4-10.2) 12/07/19 04:31 Total Bilirubin 0.5 mg/dL (0.2-1.3) 12/06/19 08:40 Direct Bilirubin 0.3 mg/dL (0.0-0.4) 12/06/19 08:40 Neonat Total Bilirubin Not Reportable 12/06/19 08:40 Neonat Direct Bilirubin Not Reportable 12/06/19 08:40 Neonat Indirect Bili Not Reportable 12/06/19 08:40 AST 19 U/L (17-59) 12/06/19 08:40 ALT 9 U/L (<50) 12/06/19 08:40 Alkaline Phosphatase 99 U/L (38-126) 12/06/19 08:40 Total Protein 6.5 g/dL (6.3-8.2) 12/06/19 08:40 Albumin 3.7 g/dL (3.5-5.0) 12/06/19 08:40 Impressions: Chest X-Ray 12/06/19 08:53 IMPRESSION: Subtle reticulonodular infiltrate in the perihilar regions, question early or developing pneumonia versus pulmonary edema Stroke Is this a Stroke Patient?: No Acute Heart Failure - Is this a Heart Failure Patient?: No
== END 2019-12-07 09:12 | disposition left against medical advice (07) | DRG 190 ==
LOC: ER 08:15 → EH 11:39 → 3W 12:32
PROVIDERS: ADMIT Internal Medicine; ATTEND Internal Medicine
PROC: 5A09357 Assistance with Respiratory Ventilation, Less than 24 Consecutive Hours, Continuous Positive Airway Pressure (ICD-10-PCS; principal; 2019-12-06)
DX: J44.1 Chronic obstructive pulmonary disease with (acute) exacerbation (principal); J96.21 Acute and chronic respiratory failure with hypoxia; I27.20 Pulmonary hypertension, unspecified; I50.9 Heart failure, unspecified; I11.0 Hypertensive heart disease with heart failure; Z99.81 Dependence on supplemental oxygen; Z53.29 Procedure and treatment not carried out because of patient's decision for other reasons; F31.9 Bipolar disorder, unspecified; F17.200 Nicotine dependence, unspecified, uncomplicated; J06.9 Acute upper respiratory infection, unspecified; Z86.718 Personal history of other venous thrombosis and embolism; Z88.8 Allergy status to other drugs, medicaments and biological substances; Z88.6 Allergy status to analgesic agent; Z79.01 Long term (current) use of anticoagulants; Z83.6 Family history of other diseases of the respiratory system; Z82.49 Family history of ischemic heart disease and other diseases of the circulatory system
CPT/HCPCS: 36415; 71045; 80048; 80053; 82803; 83605; 85025; 85610; 87040; 94640; 94660; 96365; 96375; 99291; J0696; J2920; J2930; J3490; J7620

== ENCOUNTER 2019-12-08 10:42 | Observation (INO) | payer MEDICAID ==
[2019-12-08] MEDS ORDERED: PREDNISONE 20 MG TABLET PO ONE (11:05)
[2019-12-08] MEDS ORDERED: DOXYCYCLINE HYCLATE 100 MG TABLET PO ONE (11:05)
--- NOTE | 2019-12-08 11:16 | ER Document Report ---
ED General - General Chief Complaint: Nausea/Vomiting Stated Complaint: NAUSEA/VOMITING Notes: 44-year-old male with severe COPD on home oxygen still smoking daily seen yesterday for shortness of breath and cough. He comes in with worsening symptoms and a headache in the setting of an oxygen saturation near 75 at home. He wears 2 L of oxygen at home takes all of his inhalers and steroids but is not sure what meds he is on now. No chest pain no leg swelling no sputum no fevers. He is angry because they "took my food" yesterday and try to treat him "is a heart patient" with Lasix but he knows that he just has bronchitis. TRAVEL OUTSIDE OF THE [place] IN LAST 30 DAYS: No - Related Data Allergies/Adverse Reactions: disulfiram [From Antabuse] Allergy (Verified 12/08/19 11:16) imipramine [Imipramine] Allergy (Verified 12/08/19 11:16) tramadol Allergy (Verified 12/08/19 11:16) Past Medical History - Social History Smoking Status: Current Every Day Smoker Smoking Education Provided: Yes - The patient ED visit today was directly related to their abuse of tobacco. Family History: COPD, CVA, DM, Hypertension Patient has suicidal ideation: No Patient has homicidal ideation: No - Past Medical History Cardiac Medical History: Reports: Hx Congestive Heart Failure, Hx DVT, Hx Hyper tension, Hx Pulmonary Embolism Denies: Hx Coronary Artery Disease, Hx Heart Attack Pulmonary Medical History: Reports: Hx Asthma, Hx Bronchitis, Hx COPD Denies: Hx Pneumonia Neurological Medical History: Reports: Hx Cerebrovascular Accident. Denies: Hx Seizures Renal/ Medical History: Denies: Hx Peritoneal Dialysis Musculoskeletal Medical History: Denies Hx Arthritis Psychiatric Medical History: Reports: Hx Bipolar Disorder, Hx Depression Past Surgical History: Reports: Hx Abdominal Surgery - hernia x 3, Hx Orthopedic Surgery - left knee - Immunizations Hx Diphtheria, Pertussis, Tetanus Vaccination: No Review of Systems - Review of Systems Notes: REVIEW OF SYSTEMS GEN: Denies fever, chills, weight loss ENT: Denies sore throat, nasal discharge, ear pain EYES: Denies blurry vision, eye pain, discharge CV: Denies chest pain, palpitations, edema RESP: Cough worsening shortness of breath wheezing GI: Denies abdominal pain, nausea, vomiting, diarrhea MSK: Denies joint pain/swelling, edema, SKIN: Denies rash, skin lesions LYMPH: Denies swollen glands/lymph nodes NEURO: Denies headache, focal weakness or numbness, dizziness PSYCH: Denies depression, suicidal or homicidal ideation PHYSICAL EXAMINATION General: No acute distress, well-nourished Head: Atraumatic, normocephalic ENT: Mouth normal, oropharynx moist, no exudates or tonsillar enlargement Eyes: Conjunctiva normal, pupils equal, lids normal Neck: No JVD, supple, no guarding CVS: Normal rate, regular rhythm, no murmurs Resp: Managed bilaterally with prolonged expiratory phase and scant bilateral wheezing GI: Nondistended, soft, no tenderness to palpation, no rebound or guarding Ext: No deformities, no edema, normal range of motion in upper and lower ext Back: No CVA or midline TTP Skin: No rash, warm Lymphatic: No lymphadeopathy noted Neuro: Awake, alert. Face symmetric. GCS 15. Course - Re-evaluation Re-evalutation: 12/08/19 11:56 Patient presents with respiratory symptoms and worsening hypoxia in setting of chronic COPD. X-ray yesterday on my review shows "infection versus edema" but I do not see any edema and he has no heart failure history. Today's white count is less than usual. I will swab him for the flu and check a BNP but treat for COPD exacerbation with steroids doxycycline given his increased sputum production. Discussed with Dr. White from the hospitalist service who will be admitting. - Laboratory Result Diagrams: 12/08/19 11:15 12/08/19 11:15 Laboratory results interpreted by me: 12/08/19 12/08/19 11:15 11:15 WBC 14.6 H RBC 4.26 L Absolute Neuts (auto) 9.5 H Absolute Monos (auto) 1.5 H NT-Pro-B Natriuret Pep 314 H - Diagnostic Test Radiology reviewed: Image reviewed, Reports reviewed Discharge - Discharge Clinical Impression: COPD (chronic obstructive pulmonary disease) with acute bronchitis Condition: Good Disposition: ADMITTED OBSERVATION Admitting Provider: Chinedu (Hospitalist) Unit Admitted: Medical Floor
[2019-12-08 11:27] LABS: ABSOLUTE BASOPHILS # (AUTO) 0.1 10^3/uL (0.0-0.2); ABSOLUTE EOSINOPHILS # (AUTO) 0.2 10^3/uL (0.0-0.6); ABSOLUTE LYMPHOCYTES (AUTO) 3.5 10^3/uL (0.5-4.7); ABSOLUTE MONOCYTES (AUTO) 1.5 10^3/uL (0.1-1.4); ABSOLUTE NEUT (AUTO) 9.5 10^3/uL (1.7-8.2); BASOPHILS % (AUTO) 0.4 % (0-2); HEMATOCRIT 41.1 % (37.9-51.0); HEMOGLOBIN 13.9 g/dL (13.5-17.0); LYMPHOCYTES % (AUTO) 23.6 % (13-45); MEAN CORPUSCULAR HEMOGLOBIN 32.7 pg (27.0-33.4); MEAN CORPUSCULAR HGB CONC 33.8 g/dL (32.0-36.0); MEAN CORPUSCULAR VOLUME 97 fl (80-97); MONOCYTES % (AUTO) 10.1 % (3-13); PLATELET COUNT 353 10^3/uL (150-450); RED BLOOD COUNT 4.26 10^6/uL (4.35-5.55); RED CELL DISTRIBUTION WIDTH 13.3 % (11.5-14.0); SEGMENTED NEUTROPHILS % (AUTO) 64.9 % (42-78); TOTAL CELLS COUNTED % (AUTO) 100 %; WHITE BLOOD COUNT 14.6 10^3/uL (4.0-10.5)
[2019-12-08 11:57] LABS: BLOOD UREA NITROGEN 13 mg/dL (7-20); CALCIUM 9.5 mg/dL (8.4-10.2); CHLORIDE 90 mmol/L (98-107); GLUCOSE 92 mg/dL (75-110); POTASSIUM 4.5 mmol/L (3.6-5.0)
[2019-12-08 12:05] LABS: ANION GAP 6 (5-19); CARBON DIOXIDE 42 mmol/L (22-30)
[2019-12-08 12:16] LABS: A TYPE INFLUENZA AG NEGATIVE (NEGATIVE); B INFLUENZA AG NEGATIVE (NEGATIVE)
[2019-12-08] MEDS ORDERED: IPRATROPIUM/ALBUTEROL 0.5-2.5 MG/3 ML AMPUL NEB PRN (13:30)
[2019-12-08] MEDS ORDERED: ACETAMINOPHEN 325 MG TABLET PO PRN (13:30)
[2019-12-08] MEDS ORDERED: GUAIFENESIN SYRP 200 MG/10 ML UDC PO PRN (13:30)
[2019-12-08] MEDS ORDERED: FUROSEMIDE 20 MG TABLET PO PRN (13:37)
--- NOTE | 2019-12-08 13:43 | PDOC H&P ---
History of Present Illness Admission Date/PCP: 12/08/19 11:42 KIT PARSON MD Patient complains of: Increase shortness of breath History of Present Illness: ANTONIA HUNTER III is a 44 year old male who presented to the emergency department yesterday for an exacerbation of COPD. He felt that he was not being treated appropriately and they were having difficulty getting his oxygen saturation levels up. He was hungry and so he decided to leave. Today he presents with moderate shortness of breath. He reported having a headache earlier. He has a nonproductive cough. He has an elevated white blood cell count at 14,000 and a chest x-ray obtained on 12/06/2019 reveals reticulonodular pattern suggestive of atypical pneumonia versus early pulmonary edema. The patient was referred to the hospital service for admission after the emergency room physician specifically asked the patient if he intended to stay for the admission. A brain atretic peptide was only 314 so it is much less likely that this is pulmonary edema. In fact an echocardiogram obtained several months ago showed a normal ejection fraction and no evidence of diastolic failure. There was mild pulmonary hypertension. Despite oxygen dependent COPD the patient still smokes 1 pack of cigarettes daily. He reports this is down from 2-1/2 packs/day. He has extremely poor dentition and reports difficulty eating. This has caused him to lose 60 pounds over the last year. He will be admitted to the hospital service. His jump iron machine presser is Dr. Porras and his physician assistant psychiatry is Dr. Marques. Past Medical History Cardiac Medical History: Reports: Congestive Heart Failure, DVT, Hypertension, Pulmonary Embolism Denies: Coronary Artery Disease, Myocardial Infarction Pulmonary Medical History: Reports: Asthma, Bronchitis, Chronic Obstructive Pulmonary Disease (COPD), Intubation, Respiratory Failure Denies: Pneumonia Neurological Medical History: Denies: Seizures Endocrine Medical History: Denies: Diabetes Mellitus Type 2 Renal/ Medical History: Denies: Chronic Kidney Disease Malignancy Medical History: Reports: None GI Medical History: Denies: Cirrhosis, Hepatitis Musculoskeltal Medical History: Denies: Arthritis Skin Medical History: Reports: None Psychiatric Medical History: Reports: Bipolar Disorder, Depression, Tobacco Dependency, Other - Opiate dependence Hematology: Denies: Anemia Past Surgical History Past Surgical History: Reports: Herniorrhaphy, Orthopedic Surgery - left knee, microdiscectomy, Other - Sinus surgery Social History Information Source: Patient, [facility] Records 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 Lives with: Family - He is and has 3 children Smoking Status: Current Every Day Smoker Cigarettes Packs Per Day: 1 Electronic Cigarette use?: No Frequency of Alcohol Use: Heavy - 124 ounce beer every day Amount of Alcoholic Beverages Per Day: 1 Hx Recreational Drug Use: Yes Drugs: Marijuana Hx Prescription Drug Abuse: No - Advance Directive Resuscitation Status: Do Not Intubate - He does wish to have an attempt at cardiac resuscitation if warranted Surrogate healthcare decision maker:: His would be the decision maker Family History Family History: COPD, CVA, DM, Hypertension Parental Family History Reviewed: Yes Children Family History Reviewed: Yes Sibling(s) Family History Reviewed.: Yes Medication/Allergy Home Medications: Albuterol Sulfate [Proair HFA Inhalation Aerosol 8.5 gm MDI] 2 puff IH Q6HP PRN 12/08/19 Fluticasone/Salmeterol [Advair 250-50 Diskus 14 Dose/Diskus] 1 puff IH Q12 Furosemide [Lasix 20 mg Tablet] 10 mg PO DAILYP PRN 12/08/19 Lisinopril [Prinivil] 10 mg PO DAILY 12/08/19 Metoprolol Tartrate [Lopressor 25 mg Tablet] 12.5 mg PO Q12 12/08/19 Rivaroxaban [Xarelto] 20 mg PO DAILY 12/08/19 Tiotropium [place] [Spiriva Handihaler 5 Cap/Kit (18 Mcg/Cap)] 1 cap IH DAILY 12/08/19 Allergies/Adverse Reactions: disulfiram [From Antabuse] Allergy (Verified 12/08/19 11:16) imipramine [Imipramine] Allergy (Verified 12/08/19 11:16) tramadol Allergy (Verified 12/08/19 11:16) Review of Systems All systems: reviewed and no additional remarkable complaints except as stated Constitutional: PRESENT: anorexia, weight loss Nose, Mouth, and Throat: PRESENT: mouth pain Respiratory: PRESENT: dyspnea, sputum Physical Exam Vital Signs: Temp Pulse Resp BP Pulse Ox 20 152/104 H 92 12/08/19 11:01 12/08/19 11:00 12/08/19 11:01 Intake & Output 12/07/19 12/08/1920 06:59 06:59 06:59 Weight 58.967 kg General appearance: PRESENT: cooperative, mild distress, thin, well-developed Head exam: PRESENT: atraumatic, normocephalic Eye exam: PRESENT: conjunctiva pink, EOMI, PERRLA. ABSENT: scleral icterus Ear exam: PRESENT: normal external ear exam. ABSENT: bleeding, drainage Mouth exam: PRESENT: laceration, moist, tongue midline Teeth exam: PRESENT: poor dentation Neck exam: ABSENT: carotid bruit, JVD, lymphadenopathy Respiratory exam: PRESENT: prolonged expiratory phas, symmetrical, wheezes - Occasional. ABSENT: accessory muscle use, retraction, tachypnea Cardiovascular exam: PRESENT: RRR, +S1, +S2 GI/Abdominal exam: PRESENT: normal bowel sounds, soft. ABSENT: distended, guarding, tenderness Rectal exam: PRESENT: deferred Gentrourinary exam: ABSENT: indwelling catheter Extremities exam: ABSENT: calf tenderness, joint swelling, pedal edema Musculoskeletal exam: PRESENT: ambulatory, normal inspection. ABSENT: deformity Neurological exam: PRESENT: alert, awake, oriented to person, oriented to place, oriented to time, oriented to situation, CN II-XII grossly intact. ABSENT: motor sensory deficit Psychiatric exam: PRESENT: appropriate affect. ABSENT: agitated, anxious Focused psych exam: ABSENT: delusional, restlessness Skin exam: PRESENT: dry, normal color, warm. ABSENT: rash Results Laboratory Results: 12/08/19 11:15 12/08/19 11:15 12/08/19 12/08/19 11:15 11:15 WBC 14.6 H RBC 4.26 L Hgb 13.9 Hct 41.1 MCV 97 MCH 32.7 MCHC 33.8 RDW 13.3 Plt Count 353 Seg Neutrophils % 64.9 Sodium 138.2 Potassium 4.5 Chloride 90 L Carbon Dioxide 42 H* Anion Gap 6 BUN 13 Creatinine 0.45 L Est GFR ( Amer) > 60 Glucose 92 Calcium 9.5 12/08/19 11:15 NT-Pro-B Natriuret Pep 314 H Assessment and Plan - Diagnosis (1) Acute respiratory failure with hypoxia and hypercapnia Is this a current diagnosis for this admission?: Yes (2) COPD with acute exacerbation Is this a current diagnosis for this admission?: Yes (3) Atypical pneumonia Is this a current diagnosis for this admission?: Yes (4) Leukocytosis Qualifiers: Leukocytosis type: unspecified Qualified Code(s): D72.829 - Elevated white blood cell count, unspecified Is this a current diagnosis for this admission?: Yes (5) Pulmonary hypertension assoc with unclear multi-factorial mechanisms Is this a current diagnosis for this admission?: Yes (6) Hypertension Qualifiers: Hypertension type: essential hypertension Qualified Code(s): I10 - Essential (primary) hypertension Is this a current diagnosis for this admission?: Yes (7) Methadone dependence Is this a current diagnosis for this admission?: Yes (8) History of DVT (deep vein thrombosis) Is this a current diagnosis for this admission?: Yes (9) Oxygen dependent Is this a current diagnosis for this admission?: Yes (10) Tobacco dependence Is this a current diagnosis for this admission?: Yes - Plan Summary Summary: 12/08/2019 Acute respiratory failure with hypoxia and hypercapnia The patient will be continued on supplemental oxygen. He is on 2 L at home. We will keep his oxygen saturation between 88 and 92%. Respiratory failure is secondary to exacerbation of COPD with atypical pneumonia. We will monitor his oxygen saturation as well. Acute COPD exacerbation Secondary to atypical pneumonia. Doxycycline will be administered. He will be on prednisone. Trelegy inhaler will substitute for his Spiriva and combination inhaler (Advair I believe). His jump iron machine presser is Dr. Porras and I have requested a consult. Atypical pneumonia With his underlying COPD the patient is at high risk for pneumonia. He does report that anytime his children are sick he tends to get pneumonia or at least bronchitis. He has had respiratory failure requiring intubation in the past with RSV. I believe this will be a community-acquired atypical pneumonia and we will treat with doxycycline. Leukocytosis White blood cell count is 14,000. We will continue to monitor his white blood cell count. It should decrease with antibiotic therapy. He will be on prednisone and this may keep his count elevated. Pulmonary hypertension Echocardiogram obtained in the last few months revealed mild pulmonary hypertension. Of note there was no evidence of systolic or diastolic heart failure. Dr. Marques is his physician assistant psychiatry and so I have asked Dr. Jimenez to consult. Hypertension We will continue the patient's lisinopril and metoprolol. He was on furosemide but he has weaned off of this. Dr. Marques has asked him to use his discretion and if he begins to get edema he will restart his furosemide. We will monitor his intake and output and daily weights to determine if furosemide is required. Methadone dependence The patient does have a history of narcotic dependence and is currently on methadone. I will need to check his dose so that we can avoid opiate withdrawal. History of deep venous thrombosis The patient is on chronic anticoagulation with Xarelto. We will continue the same and monitor for any evidence of bleeding. Oxygen dependent As noted above the patient is on 2 L oxygen at home. I explained the importance of keeping his saturation between 88 and 92%. We will adjust his oxygen flow to meet these requirements. Tobacco dependence The patient reports that his nicotine dependence is down to 1 pack a day from 2 and half packs per day. He does wear a 21 mg nicotine patch daily and I will ensure that this continues. My goal is to provide aggressive treatment. The patient has a low threshold to remain in the hospital. If I can improve his breathing enough then I would like to possibly discharge the patient home tomorrow and resume his home medication regimen with the addition of antibiotic therapy and a short course of prednisone. - Time Time Spent with patient: 35 or more minutes Medications reviewed and adjusted accordingly: Yes Anticipated discharge: Home Within: within 48 hours
[2019-12-08] MEDS ORDERED: RIVAROXABAN 10 MG TABLET PO SCH (16:00)
[2019-12-08] MEDS: PREDNISONE 20 MG TABLET PO SCH (17:13)
--- NOTE | 2019-12-08 19:18 | ADVANCED CARE ---
- Diagnosis (1) Acute respiratory failure with hypoxia and hypercapnia Diagnosis Current: Yes (2) COPD with acute exacerbation Diagnosis Current: Yes (3) Atypical pneumonia Diagnosis Current: Yes (4) Leukocytosis Diagnosis Current: Yes (5) Pulmonary hypertension assoc with unclear multi-factorial mechanisms Diagnosis Current: Yes (6) Hypertension Diagnosis Current: Yes (7) Methadone dependence Diagnosis Current: Yes (8) History of DVT (deep vein thrombosis) Diagnosis Current: Yes (9) Oxygen dependent Diagnosis Current: Yes (10) Tobacco dependence Diagnosis Current: Yes Attendance: Discussion was held at the bedside with the patient and his present. Resuscitation Status: Do Not Intubate - He does wish to have an attempt at cardiac resuscitation if warranted Discussion: Because the patient does not wish to be intubated again we did focus on cardiac resuscitation and the likelihood of success without intubation. The patient does understand this. He mentioned that he does not want to be stuck in a snf or long-term ventilator which is why he decided no intubation. I did point out the importance of a living will. The patient and his state that they are in the process of completing this. I reminded them that there is a blank living well in the admissions packet. We reviewed the ability to designate specific decision-makers and put constraints on treatment plans in the event of a catastrophic illness. Because of the severity of previous illnesses the patient and his are well aware of the potential situations warranting difficult decisions. Care Planning Goals: Attempt to complete a living will either during this hospitalization or shortly thereafter Document(s) Completed: None at this time Time Spent: 20 minutes
--- NOTE | 2019-12-08 21:21 | EKG REPORT ---
SEVERITY:- BORDERLINE ECG - SINUS RHYTHM PROBABLE LEFT ATRIAL ABNORMALITY BORDERLINE R WAVE PROGRESSION, ANTERIOR LEADS : Confirmed by: Nader Park 08-Dec-2019 21:20:27
[2019-12-08] MEDS: METOPROLOL TARTRATE 25 MG TABLET PO SCH (22:14)
[2019-12-08] MEDS: DOXYCYCLINE HYCLATE 100 MG in DEXTROSE 5%-WATER 250 ML IV SCH (22:15)
[2019-12-08] MEDS: GUAIFENESIN 600 MG TABLET.SA PO SCH (22:15)
[2019-12-09 06:48] LABS: HEMATOCRIT 43.4 % (37.9-51.0); HEMOGLOBIN 14.4 g/dL (13.5-17.0); MEAN CORPUSCULAR HEMOGLOBIN 32.3 pg (27.0-33.4); MEAN CORPUSCULAR HGB CONC 33.2 g/dL (32.0-36.0); MEAN CORPUSCULAR VOLUME 98 fl (80-97); PLATELET COUNT 371 10^3/uL (150-450); RED BLOOD COUNT 4.45 10^6/uL (4.35-5.55); RED CELL DISTRIBUTION WIDTH 13.4 % (11.5-14.0); WHITE BLOOD COUNT 14.5 10^3/uL (4.0-10.5)
[2019-12-09 07:07] LABS: BLOOD UREA NITROGEN 15 mg/dL (7-20); CALCIUM 9.3 mg/dL (8.4-10.2); CHLORIDE 90 mmol/L (98-107); GLUCOSE 86 mg/dL (75-110); POTASSIUM 4.5 mmol/L (3.6-5.0)
[2019-12-09 07:16] LABS: ANION GAP 6 (5-19)
[2019-12-09 07:18] LABS: CARBON DIOXIDE 42 mmol/L (22-30)
[2019-12-09] MEDS ORDERED: METHADONE HCL 10 MG TABLET PO SCH (08:30)
[2019-12-09] MEDS ORDERED: (PENDING PHARMACY ID) (Lisinopril [Prinivil] 10 MG) PO SCH (10:00)
[2019-12-09] MEDS ORDERED: LISINOPRIL 10 MG TABLET PO SCH ×2 (10:00→18:00)
[2019-12-09] MEDS ORDERED: NICOTINE 21 MG/24 HR PATCH.TD24 TD SCH (10:00)
[2019-12-09] MEDS ORDERED: FLUTICASONE/UMECLIDIN/VILANTER 100-62.5-25 MCG/DOSE IH SCH (10:00)
[2019-12-09] MEDS: METOPROLOL TARTRATE 25 MG TABLET PO SCH (10:02)
[2019-12-09] MEDS: GUAIFENESIN 600 MG TABLET.SA PO SCH (10:02)
[2019-12-09] MEDS: PREDNISONE 20 MG TABLET PO SCH (10:03)
[2019-12-09] MEDS: DOXYCYCLINE HYCLATE 100 MG in DEXTROSE 5%-WATER 250 ML IV SCH (10:05)
[2019-12-09 12:10] VITALS: BP 167/94
--- NOTE | 2019-12-09 12:10 | PDOC CONSULTATION ---
Consultation Consult Date: 12/09/19 Attending physician:: NATALIE MCKENZIE Provider Consulted: ANIA FAIR Consult reason:: history of chf History of Present Illness Admission Date/PCP: 12/08/19 11:42 KIT PARSON MD Patient complains of: Dyspnea History of Present Illness: ANTONIA HUNTER III is a 44 year old male with past medical history significant for COPD, pulmonary embolism, pulmonary hypertension, hypertension, tobacco abuse/dependence who is seen today in consultation for evaluation of dyspnea / chf. The patient explains he was admitted but left AMA just the other day due to issues with the diet he was receiving. Otherwise he explains he had a mild cold which always exacerbates his COPD and his sentiment to a spiral of worsening dyspnea. Most recently he had a headache described as a migraine, severe, diffuse, not improved or made worse by anything associated with his dyspnea that was constant. I have reviewed outpatient cardiology notes (most revently seen 08/19/2019) and he carries an historical diagnosis of diastolic CHF from [facility]. Notes explained that he has a history of VTE being transferred to [facility] where he was in a medically induced coma and came out with a diagnosis of pulmonary hypertension and was treated for heart failure during that admission. His left ventricular ejection fraction is noted to be preserved with grade 1 diastolic dysfunction on echocardiogram. He follows with pulmonology for pulmonary hypertension history. He utilizes Trilogy at home as well as continuous oxygen therapy. Last cardiology note as lasix 10mg daily listed. Outpatient cardiac evaluation Lexiscan nuclear stress test on 04/08/18: -No evidence of ischemia or infarct. -Ejection fraction of 53%. Echocardiogram on 04/08/18: -The left ventricle is normal in size. -Ejection fraction is normal. -Grade 1 diastolic dysfunction. -Cannot comment on wall motion abnormalities. -RVH. Patient admits to smoking for roughly 34 years starting in childhood and was up to 3 packs/day but most recently is now under 1 pack/day. The patient denies a primary family history of CAD or CVA. Past Medical History Cardiac Medical History: Reports: Congestive Heart Failure, DVT, Hypertension, Pulmonary Embolism Denies: Coronary Artery Disease, Myocardial Infarction Pulmonary Medical History: Reports: Asthma, Bronchitis, Chronic Obstructive Pulmonary Disease (COPD), Intubation, Respiratory Failure Denies: Pneumonia Neurological Medical History: Denies: Seizures Endocrine Medical History: Denies: Diabetes Mellitus Type 2 Renal/ Medical History: Denies: Chronic Kidney Disease Malignancy Medical History: Reports: None GI Medical History: Denies: Cirrhosis, Hepatitis Musculoskeltal Medical History: Denies: Arthritis Skin Medical History: Reports: None Psychiatric Medical History: Reports: Bipolar Disorder, Depression, Tobacco Dependency, Other - Opiate dependence Hematology: Denies: Anemia Past Surgical History Past Surgical History: Reports: Herniorrhaphy, Orthopedic Surgery - left knee, microdiscectomy, Other - Sinus surgery Social History Lives with: Family - He is and has 3 children Smoking Status: Current Every Day Smoker Cigarettes Packs Per Day: 1 Electronic Cigarette use?: No Frequency of Alcohol Use: Heavy - 124 ounce beer every day Hx Recreational Drug Use: Yes Drugs: Marijuana Hx Prescription Drug Abuse: No - Advance Directive Resuscitation Status: Do Not Intubate - He does wish to have an attempt at cardiac resuscitation if warranted Family History Family History: COPD, CVA, DM, Hypertension Parental Family History Reviewed: Yes Children Family History Reviewed: Yes Sibling(s) Family History Reviewed.: Yes Medication/Allergy Home Medications: Albuterol Sulfate [Proair HFA Inhalation Aerosol 8.5 gm MDI] 2 puff IH Q6HP PRN 12/08/19 Fluticasone/Salmeterol [Advair 250-50 Diskus 14 Dose/Diskus] 1 puff IH Q12 12/08/19 Furosemide [Lasix 20 mg Tablet] 10 mg PO DAILYP PRN 12/08/19 Lisinopril [Prinivil] 10 mg PO DAILY 12/08/19 Metoprolol Tartrate [Lopressor 25 mg Tablet] 12.5 mg PO Q12 12/08/19 Rivaroxaban [Xarelto] 20 mg PO DAILY 12/08/19 Tiotropium Cameron [Spiriva Handihaler 5 Cap/Kit (18 Mcg/Cap)] 1 cap IH DAILY 12/08/19 Allergies/Adverse Reactions: disulfiram [From Antabuse] Allergy (Verified 12/08/19 11:16) imipramine [Imipramine] Allergy (Verified 12/08/19 11:16) tramadol Allergy (Verified 12/08/19 11:16) Physical Exam Vital Signs: Temp Pulse Resp BP Pulse Ox 98.2 F 74 18 136/88 H 93 12/08/19 23:33 12/09/19 07:00 12/08/19 23:33 12/08/19 23:33 12/08/19 23:33 Pulse Oximeter Continuous Start: 12/08/19 13:34 Freq: RTQ4 Status: Active Protocol: Document 12/09/19 04:00 [facility] (Rec: 12/09/19 04:47 [facility] [id number]) Pulse Oximetry Assessment Oxygen Flow Rate (L/min) 2 Oxygen Delivery Method Nasal Cannula Fraction of Inspired Oxygen (FIO2) 28 Equipment Usage Equipment Standby Continuous SpO2 Machine # 2 Intake & Output 12/08/19 12/09/19 12/10/19 06:59 06:59 06:59 Intake Total 250 Balance 250 Weight 138 kg Exam: General Appearance: no acute distress, well developed, well nourished, no diaphoresis. Eyes:. Pupils equal round reactive to light, no injection no jaundice. EOMI HENT: atraumatic, oropharynx is clear with moist mucous membranes and poor dentition. NC in place. Neck: supple, no masses, no thyromegaly and normal jugular venous pressure. Lungs: scattered end-exp wheezes heard, distant sounds, no rhonchi, normal respiratory effort. Cardiovascular: Palpation of heart: normal PMI, no thrills. Auscultation of Heart: normal rate and rhythm, distant sounds, normal S1 and S2, without murmurs, no S3, no S4. Carotid pulses: no bruit, normal amplitude. Abdominal aorta: no bruit, normal amplitude. Radial pulses: normal amplitude. Femoral pulses: no bruit, normal amplitude. Pedal pulses: normal amplitude. Examination of extremities for edema and/or varicosities: normal. Abdomen: normal bowel sounds, soft, non-tender, no masses, no hepatomegaly, no splenomegaly. Musculoskeletal: normal movement of all extremities. Extremities: no clubbing, no cyanosis. Integumentary: warm and dry bilaterally with no ulcers. Psychiatric: awake, alert and oriented x 3. Appropriate mood and affect. Results Laboratory Results: 12/09/19 05:45 12/09/19 05:45 12/08/19 12/08/19 12/09/19 11:15 11:15 05:45 WBC 14.6 H 14.5 H RBC 4.26 L 4.45 Hgb 13.9 14.4 Hct 41.1 43.4 MCV 97 98 H MCH 32.7 32.3 MCHC 33.8 33.2 RDW 13.3 13.4 Plt Count 353 371 Seg Neutrophils % 64.9 Sodium 138.2 Potassium 4.5 Chloride 90 L Carbon Dioxide 42 H* Anion Gap 6 BUN 13 Creatinine 0.45 L Est GFR ( Amer) > 60 Glucose 92 Calcium 9.5 Magnesium 12/09/19 05:45 WBC RBC Hgb Hct MCV MCH MCHC RDW Plt Count Seg Neutrophils % Sodium 137.5 Potassium 4.5 Chloride 90 L Carbon Dioxide 42 H* Anion Gap 6 BUN 15 Creatinine 0.51 L Est GFR ( Amer) > 60 Glucose 86 Calcium 9.3 Magnesium 2.0 12/08/19 11:15 NT-Pro-B Natriuret Pep 314 H EKG Comments: Personal interpretation of EKG 12/08/2019sinus rhythm 75 bpm, short MN interval 110 ms, normal axis, no significant ST-T wave abnormalities late R wave transition anterior precordial leads, normal QT interval. Assessment & Plan - Diagnosis (3) Acute respiratory failure with hypoxia and hypercapnia Is this a current diagnosis for this admission?: Yes (4) Atypical pneumonia Is this a current diagnosis for this admission?: Yes (6) Hypertension Qualifiers: Hypertension type: essential hypertension Qualified Code(s): I10 - Essential (primary) hypertension Is this a current diagnosis for this admission?: Yes (7) History of DVT (deep vein thrombosis) Is this a current diagnosis for this admission?: Yes (9) Tobacco dependence Is this a current diagnosis for this admission?: Yes - Notes Notes: Acute respiratory failure in the setting of atypical pneumonia/COPD exacerbation Management per primary team History of diastolic heart failure Patient is euvolemic on exam and certainly compensated at this time. Continue outpatient antihypertensive regimen to maintain goal blood pressure less than 130/80 Avoid unnecessary IV fluids, strict I's and O's Daily weights. I had a long discussion with the patient regarding salt restriction and notes that he left AMA because he does not like the cardiac diet provided at this hospital. As s uch we can monitor his fluid status closely and allow him to have a regular diet. His outpatient medication list states that he is taking Lasix 10 mg daily. I would just maintain his outpatient regimen per information provided by the patient. History of DVT PE Continue home dosing of Xarelto once daily Pulmonary hypertension - Patient follows closely with pulmonology. Tobacco abuse/dependence I counseled the patient regarding the importance of tobacco cessation For the consultation. Dr. Marques will resume rounding for [facility] Thursday. If the patient is discharged prior to Thursday the patient should be advised to call the office and will have follow-up within 7 days
--- NOTE | 2019-12-09 12:43 | PDOC DISCHARGE SUMMARY ---
Impression - Admit/DC Date/PCP Admission Date/Primary Care Provider: 12/08/19 11:42 KIT PARSON MD Discharge Date: 12/09/19 - Discharge Diagnosis (1) Acute respiratory failure with hypoxia and hypercapnia Is this a current diagnosis for this admission?: Yes (2) COPD with acute exacerbation Is this a current diagnosis for this admission?: Yes (3) Atypical pneumonia Is this a current diagnosis for this admission?: Yes (4) Leukocytosis Is this a current diagnosis for this admission?: Yes (5) Pulmonary hypertension assoc with unclear multi-factorial mechanisms Is this a current diagnosis for this admission?: Yes (6) Hypertension Is this a current diagnosis for this admission?: Yes (7) Methadone dependence Is this a current diagnosis for this admission?: Yes (8) History of DVT (deep vein thrombosis) Is this a current diagnosis for this admission?: Yes (9) Oxygen dependent Is this a current diagnosis for this admission?: Yes (10) Tobacco dependence Is this a current diagnosis for this admission?: Yes (11) Noncompliance Is this a current diagnosis for this admission?: Yes - Assessment Summary: 12/08/2019 Acute respiratory failure with hypoxia and hypercapnia The patient will be continued on supplemental oxygen. He is on 2 L at home. We will keep his oxygen saturation between 88 and 92%. Respiratory failure is secondary to exacerbation of COPD with atypical pneumonia. We will monitor his oxygen saturation as well. Acute COPD exacerbation Secondary to atypical pneumonia. Doxycycline will be administered. He will be on prednisone. Trelegy inhaler will substitute for his Spiriva and combination inhaler (Advair I believe). His laundry helper is Dr. Vazquez and I have requ ested a consult. Atypical pneumonia With his underlying COPD the patient is at high risk for pneumonia. He does report that anytime his children are sick he tends to get pneumonia or at least bronchitis. He has had respiratory failure requiring intubation in the past with RSV. I believe this will be a community-acquired atypical pneumonia and we will treat with doxycycline. Leukocytosis White blood cell count is 14,000. We will continue to monitor his white blood cell count. It should decrease with antibiotic therapy. He will be on predni sone and this may keep his count elevated. Pulmonary hypertension Echocardiogram obtained in the last few months revealed mild pulmonary hypertension. Of note there was no evidence of systolic or diastolic heart failure. Dr. Marques is his physical anthropologist and so I have asked Dr. Jimenez to consult. Hypertension We will continue the patient's lisinopril and metoprolol. He was on furosemide but he has weaned off of this. Dr. Marques has asked him to use his discretion and if he begins to get edema he will restart his furosemide. We will monitor his intake and output and daily weights to determine if furosemide is required. Methadone dependence The patient does have a history of narcotic dependence and is currently on methadone. I will need to check his dose so that we can avoid opiate withdrawal. History of deep venous thrombosis The patient is on chronic anticoagulation with Xarelto. We will continue the same and monitor for any evidence of bleeding. Oxygen dependent As noted above the patient is on 2 L oxygen at home. I explained the importance of keeping his saturation between 88 and 92%. We will adjust his oxygen flow to meet these requirements. Tobacco dependence The patient reports that his nicotine dependence is down to 1 pack a day from 2 and half packs per day. He does wear a 21 mg nicotine patch daily and I will ensure that this continues. My goal is to provide aggressive treatment. The patient has a low threshold to remain in the hospital. If I can improve his breathing enough then I would like to possibly discharge the patient home tomorrow and resume his home medication regimen with the addition of antibiotic therapy and a short course of prednisone. 12/09/2019 The patient is feeling better. His respiratory status is stable and he is back to his 2 L oxygen by nasal cannula. His white blood cell count is still elevated but he did receive steroids. He is wearing the nicotine patch. He is certainly stable and improved enough for discharge to home. At the time of this encounter the conservation planner was present as well. The patient was complaining of recurrent oxygen desaturations and concerns about his oxygen equipment. He reports that 1 of the EMS staff members told him that because of the length of tubing on his oxygen tank that he is not really getting the volume that the machine is set at. The oxygen is a completely closed system and so it is likely that he is getting the 2 L nasal cannula with the exception of a leak from a connecting device. Discharge planning is going to check with the oxygen supplier. The conservation planner to get back to me and they found the patient to be noncompliant with his regimen. It is not a question of faulty equipment but rather a question of compliance. I also explained to him that if he continues to smoke his life expectancy is going to be greatly shortened. He will be on a very short prednisone taper. He does have a nebulizer machine at home. He has a trilogy for his BiPAP. In addition he likes the Trelegy triple medication inhaler. I will send a prescription to pharmacy but it is a question of insurance coverage. If the insurance does not cover it he will return to his dual medication inhaler along with Spiriva. - Additional Information Resuscitation Status: Do Not Intubate - He does wish to have an attempt at cardiac resuscitation if warranted Discharge Diet: Cardiac Discharge Activity: Balance Activity w/Rest, Slowly Increase Activity Referrals: KERRI VAZQUEZ MD [ACTIVE STAFF] - KIT PARSON MD [Primary Care Provider] - 12/13/19 10:15 am Prescriptions: Prednisone [Deltasone 20 mg Tablet] 40 mg PO ASDIR 8 Days #10 tablet Fluticasone/Umeclidin/Vilanter [Trelegy 100-62.5-25 Mcg Ellipta 14 Dose/Dpi] 1 inh IH DAILY #1 inhaler Doxycycline Hyclate [Vibramycin 100 mg Tablet] 100 mg PO BID #20 tablet Home Medications: Albuterol Sulfate [Proair HFA Inhalation Aerosol 8.5 gm MDI] 2 puff IH Q6HP PRN 12/08/19 Furosemide [Lasix 20 mg Tablet] 10 mg PO DAILYP PRN 12/08/19 Lisinopril [Prinivil] 10 mg PO DAILY 12/08/19 Metoprolol Tartrate [Lopressor 25 mg Tablet] 12.5 mg PO Q12 12/08/19 Rivaroxaban [Xarelto] 20 mg PO DAILY 12/08/19 Doxycycline Hyclate [Vibramycin 100 mg Tablet] 100 mg PO BID #20 tablet 12/09/19 Fluticasone/Umeclidin/Vilanter [Trelegy 100-62.5-25 Mcg Ellipta 14 Dose/Dpi] 1 inh IH DAILY #1 inhaler 12/09/19 Guaifenesin [Mucinex Sr 600 mg Tablet.sa] 600 mg PO Q12 tablet.sa 12/09/19 Ipratropium/Albuterol Sulfate [Duoneb 3 ml Ampul] 3 ml NEB RTQ4HP PRN vial.neb 12/09/19 Methadone HCl [Dolophine 10 mg Tablet] 60 mg PO DAILY tablet 12/09/19 Nicotine [Nicoderm 21 mg/24 Hr Transderm Patch] 1 each TD DAILY patch.td24 12/09/19 Prednisone [Deltasone 20 mg Tablet] 40 mg PO ASDIR 8 Days #10 tablet 12/09/19 History of Present Illiness History of Present Illness: ANTONIA HUNTER III is a 44 year old male who presented to the emergency department yesterday for an exacerbation of COPD. He felt that he was not being treated appropriately and they were having difficulty getting his oxygen saturation levels up. He was hungry and so he decided to leave. Today he presents with moderate shortness of breath. He reported having a headache earlier. He has a nonproductive cough. He has an elevated white blood cell count at 14,000 and a chest x-ray obtained on 12/06/2019 reveals reticulonodular pattern suggestive of atypical pneumonia versus early pulmonary edema. The patient was referred to the hospital service for admission after the emergency room physician specifically asked the patient if he intended to stay for the admission. A brain atretic peptide was only 314 so it is much less likely that this is pulmonary edema. In fact an echocardiogram obtained several months ago showed a normal ejection fraction and no evidence of diastolic failure. There was mild pulmonary hypertension. Despite oxygen dependent COPD the patient still smokes 1 pack of cigarettes daily. He reports this is down from 2-1/2 packs/day. He has extremely poor dentition and reports difficulty eating. This has caused him to lose 60 pounds over the last year. He will be admitted to the hospital service. His laundry helper is Dr. Vazquez and his physical anthropologist is Dr. Marques. Hospital Course Hospital Course: As above Physical Exam Vital Signs: Temp Pulse Resp BP Pulse Ox 98.9 F 67 20 167/94 H 90 L 12/09/19 12:00 12/09/19 12:00 12/09/19 12:00 12/09/19 12:00 12/09/19 12:00 Pulse Oximeter Continuous Start: 12/08/19 13:34 Freq: RTQ4 Status: Active Protocol: Document 12/09/19 09:26 [facility] (Rec: 12/09/19 09:30 [facility] [id number]) Pulse Oximetry Assessment Oxygen Saturation (92-100) 90 Oxygen Flow Rate (L/min) 2 Oxygen Delivery Method Nasal Cannula Fraction of Inspired Oxygen (FIO2) 28 Equipment Usage Equipment in Use Continuous SpO2 Machine # N 2 Additional RT Notes Other cont spo2 in room pt does not want to wear Intake & Output 12/08/19 12/09/19 12/10/19 06:59 06:59 06:59 Intake Total 250 250 Balance 250 250 Weight 138 kg General appearance: PRESENT: no acute distress Respiratory exam: PRESENT: symmetrical, unlabored, other - Congested breath sounds. ABSENT: rhonchi, tachypnea, wheezes Cardiovascular exam: PRESENT: RRR, +S1, +S2 GI/Abdominal exam: PRESENT: normal bowel sounds, soft. ABSENT: tenderness Neurological exam: PRESENT: alert, awake, oriented to person, oriented to place, oriented to time, oriented to situation, CN II-XII grossly intact Results Laboratory Results: WBC 14.5 10^3/uL (4.0-10.5) H 12/09/19 05:45 RBC 4.45 10^6/uL (4.35-5.55) 12/09/19 05:45 Hgb 14.4 g/dL (13.5-17.0) 12/09/19 05:45 Hct 43.4 % (37.9-51.0) 12/09/19 05:45 MCV 98 fl (80-97) H 12/09/19 05:45 MCH 32.3 pg (27.0-33.4) 12/09/19 05:45 MCHC 33.2 g/dL (32.0-36.0) 12/09/19 05:45 RDW 13.4 % (11.5-14.0) 12/09/19 05:45 Plt Count 371 10^3/uL (150-450) 12/09/19 05:45 Lymph % (Auto) 23.6 % (13-45) 12/08/19 11:15 Mathews % (Auto) 10.1 % (3-13) 12/08/19 11:15 Eos % (Auto) 1.0 % (0-6) 12/08/19 11:15 Baso % (Auto) 0.4 % (0-2) 12/08/19 11:15 Absolute Neuts (auto) 9.5 10^3/uL (1.7-8.2) H 12/08/19 11:15 Absolute Lymphs (auto) 3.5 10^3/uL (0.5-4.7) 12/08/19 11:15 Absolute Monos (auto) 1.5 10^3/uL (0.1-1.4) H 12/08/19 11:15 Absolute Eos (auto) 0.2 10^3/uL (0.0-0.6) 12/08/19 11:15 Absolute Basos (auto) 0.1 10^3/uL (0.0-0.2) 12/08/19 11:15 Seg Neutrophils % 64.9 % (42-78) 12/08/19 11:15 Sodium 137.5 mmol/L (137-145) 12/09/19 05:45 Potassium 4.5 mmol/L (3.6-5.0) 12/09/19 05:45 Chloride 90 mmol/L (98-107) L 12/09/19 05:45 Carbon Dioxide 42 mmol/L (22-30) H* 12/09/19 05:45 Anion Gap 6 (5-19) 12/09/19 05:45 BUN 15 mg/dL (7-20) 12/09/19 05:45 Creatinine 0.51 mg/dL (0.52-1.25) L 12/09/19 05:45 Est GFR ( Amer) > 60 (>60) 12/09/19 05:45 Est GFR (MDRD) Non-Af > 60 (>60) 12/09/19 05:45 Glucose 86 mg/dL (75-110) 12/09/19 05:45 Calcium 9.3 mg/dL (8.4-10.2) 12/09/19 05:45 Magnesium 2.0 mg/dL (1.6-2.3) 12/09/19 05:45 NT-Pro-B Natriuret Pep 314 pg/mL (<125) H 12/08/19 11:15 Influenza A (Rapid) NEGATIVE (NEGATIVE) 12/08/19 11:35 Influenza B (Rapid) NEGATIVE (NEGATIVE) 12/08/19 11:35 12/08/19 11:15 NT-Pro-B Natriuret Pep 314 H Plan Health Concerns: Noncompliance with treatment regimen as well as ongoing tobacco use Plan of Treatment: Short course prednisone taper, complete antibiotic therapy, follow-up with cardiology and pulmonology as well as primary care provider. Goals: Smoking cessation and better compliance Time Spent: Greater than 30 Minutes Stroke Is this a Stroke Patient?: No Acute Heart Failure - Is this a Heart Failure Patient?: No
== END 2019-12-09 14:00 | disposition home or self-care (01) ==
LOC: ER 10:42 → EH 11:42 → 4N 16:05
PROVIDERS: ADMIT Hospitalist; ATTEND Hospitalist
DX: J96.02 Acute respiratory failure with hypercapnia (principal); J96.01 Acute respiratory failure with hypoxia; J44.1 Chronic obstructive pulmonary disease with (acute) exacerbation; J18.9 Pneumonia, unspecified organism; D72.829 Elevated white blood cell count, unspecified; I27.29 Other secondary pulmonary hypertension; F11.20 Opioid dependence, uncomplicated; F17.210 Nicotine dependence, cigarettes, uncomplicated; R63.3 Feeding difficulties; K08.9 Disorder of teeth and supporting structures, unspecified; R63.0 Anorexia; K13.79 Other lesions of oral mucosa; R63.4 Abnormal weight loss; R51 Headache; I10 Essential (primary) hypertension; Z99.81 Dependence on supplemental oxygen; Z86.718 Personal history of other venous thrombosis and embolism; Z91.19 Patient's noncompliance with other medical treatment and regimen; Z79.01 Long term (current) use of anticoagulants; Z86.711 Personal history of pulmonary embolism; Z82.49 Family history of ischemic heart disease and other diseases of the circulatory system; Z82.5 Family history of asthma and other chronic lower respiratory diseases
CPT/HCPCS: 93005; 99285; 36415 ×2; 87040; 83735; 85025; 85027; 80048 ×2; 87804; 83880; 93010; 94762 ×2; J3490 ×12; J7512 ×2; J7060 ×2; G0378

== ENCOUNTER 2020-02-27 19:47 | Emergency (ER) | payer MEDICAID | END 2020-02-28 00:02 | disposition left against medical advice (07) | LOC: ER 19:47 | DX: Z53.21 Procedure and treatment not carried out due to patient leaving prior to being seen by health care provider (principal); R06.02 Shortness of breath ==

== ENCOUNTER 2020-03-16 03:04 | Emergency (ER) | payer MEDICAID ==
[2020-03-16] MEDS ORDERED: LORAZEPAM 1 MG TABLET PO ONE (03:30)
[2020-03-16] MEDS ORDERED: DIPHENHYDRAMINE HCL 25 MG CAPSULE PO ONE (03:31)
[2020-03-16] MEDS ORDERED: HALOPERIDOL 5 MG TABLET PO ONE (03:46)
[2020-03-16 03:50] LABS: APPEARANCE,URINE CLEAR; BILIRUBIN,URINE NEGATIVE (NEGATIVE); COLOR,URINE COLORLESS; GLUCOSE, URINE NEGATIVE (NEGATIVE); KETONES,URINE NEGATIVE (NEGATIVE); LEUKOCYTE ESTERASE,URINE NEGATIVE (NEGATIVE); NITRITE,URINE NEGATIVE (NEGATIVE); PROTEIN,URINE NEGATIVE (NEGATIVE); URINE SPECIFIC GRAVITY 1.003; UROBILINOGEN,URINE NEGATIVE mg/dL (<2.0)
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
[2020-03-16 04:03] LABS: ABSOLUTE BASOPHILS # (AUTO) 0.1 10^3/uL (0.0-0.2); ABSOLUTE EOSINOPHILS # (AUTO) 0.4 10^3/uL (0.0-0.6); ABSOLUTE MONOCYTES (AUTO) 0.7 10^3/uL (0.1-1.4); ABSOLUTE NEUT (AUTO) 4.9 10^3/uL (1.7-8.2); BASOPHILS % (AUTO) 0.8 % (0-2); EOSINOPHILS % (AUTO) 3.5 % (0-6); HEMATOCRIT 41.2 % (37.9-51.0); HEMOGLOBIN 14.4 g/dL (13.5-17.0); LYMPHOCYTES % (AUTO) 45.1 % (13-45); MEAN CORPUSCULAR HEMOGLOBIN 31.8 pg (27.0-33.4); MEAN CORPUSCULAR HGB CONC 34.9 g/dL (32.0-36.0); MEAN CORPUSCULAR VOLUME 91 fl (80-97); MONOCYTES % (AUTO) 6.3 % (3-13); PLATELET COUNT 318 10^3/uL (150-450); RED BLOOD COUNT 4.52 10^6/uL (4.35-5.55); SEGMENTED NEUTROPHILS % (AUTO) 44.3 % (42-78); TOTAL CELLS COUNTED % (AUTO) 100 %; WHITE BLOOD COUNT 11.1 10^3/uL (4.0-10.5)
[2020-03-16 04:04] LABS: URINE AMPHETAMINES SCREEN NEGATIVE; URINE BARBITURATES SCREEN NEGATIVE; URINE BENZODIAZEPINES SCREEN NEGATIVE; URINE COCAINE SCREEN NEGATIVE; URINE MARIJUANA (THC) SCREEN NEGATIVE; URINE METHADONE SCREEN NEGATIVE; URINE PHENCYCLIDINE SCREEN NEGATIVE
[2020-03-16 04:15] LABS: ALBUMIN 4.5 g/dL (3.5-5.0); ALCOHOL 248 mg/dL (NONE DETECTED); ALKALINE PHOSPHATASE 82 U/L (38-126); ANION GAP 9 (5-19); ASPARTATE AMINO TRANSFERASE 31 U/L (17-59); BILIRUBIN,TOTAL 0.5 mg/dL (0.2-1.3); BLOOD UREA NITROGEN 13 mg/dL (7-20); CALCIUM 9.4 mg/dL (8.4-10.2); CARBON DIOXIDE 30 mmol/L (22-30); CHLORIDE 99 mmol/L (98-107); GLUCOSE 104 mg/dL (75-110); POTASSIUM 4.1 mmol/L (3.6-5.0)
[2020-03-16 04:16] LABS: ACETAMINOPHEN < 10 ug/mL (10-30); SALICYLATE < 1.0 mg/dL (2.0-20.0)
[2020-03-16] MEDS ORDERED: ZIPRASIDONE MESYLATE INJ/PF 20 MG SDV IM ONE (04:58)
--- NOTE | 2020-03-16 07:29 | EKG REPORT ---
SEVERITY:- ABNORMAL ECG - SINUS RHYTHM ANTERIOR INFARCT, AGE INDETERMINATE : Confirmed by: Esteban Drake MD 16-Mar-2020 07:28:43
--- NOTE | 2020-03-16 16:45 | ER Document Report ---
Doctor's Note Notes: 03/16/20 16:44 This 44-year-old male is now completely sober, denies current suicidal or homicidal ideation. Feels safe to be discharged to home. He is both medically and psychiatrically cleared for discharge. Has been evaluated by Dr. Mesfin Downing, will be discharged home. GENERAL: Alert, interacts well. No acute distress. HEAD: Normocephalic, atraumatic EYES: Pupils equal, round and reactive to light, extraocular movements intact. ENT: Oral mucosa moist, tongue midline. NECK: Full range of motion, supple, trachea midline. LUNGS: no respiratory distress. EXTREMITIES: Moves all 4 extremities spontaneously, no edema. No cyanosis. NEUROLOGICAL: Alert and oriented x3, normal speech. PSYCH: Normal mood, normal affect. SKIN: Warm, Dry, normal turgor, no rashes or lesions noted.
[2020-03-16 17:19] VITALS: BP 148/95
== END 2020-03-16 17:44 | disposition home or self-care (01) ==
LOC: ER 03:04
DX: R45.850 Homicidal ideations (principal); J44.9 Chronic obstructive pulmonary disease, unspecified; I10 Essential (primary) hypertension; G89.29 Other chronic pain; F32.9 Major depressive disorder, single episode, unspecified; Z88.8 Allergy status to other drugs, medicaments and biological substances; F17.200 Nicotine dependence, unspecified, uncomplicated; I50.9 Heart failure, unspecified; Z86.718 Personal history of other venous thrombosis and embolism; Z86.711 Personal history of pulmonary embolism
CPT/HCPCS: 93005; 99285; 96372; 36415; 80307 ×4; 85025; 80053; 81001; 93010; J3490; J3486